=== PATIENT | female | born 1990 | race American Indian/Alaskan Native ===

== ENCOUNTER 2016-12-30 23:27 | Emergency (ER) | payer MEDICAID ==
[2016-12-30] MEDS ORDERED: Lactated Ringers 1,000 ML IV SCH (23:45)
[2016-12-30] MEDS ORDERED: Sodium Chloride 0.9% 10 ML Syringe FLUSH PRN (23:57)
--- NOTE | 2016-12-31 00:02 | EDM.PDOC ---
ED HPI GENERAL MEDICAL PROBLEM - General Chief Complaint: Gastrointestinal Problem Stated Complaint: NAUSEA Time Seen by Provider: 12/30/16 23:50 Source of Information: Reports: Patient, Family, RN Notes Reviewed History Limitations: Reports: No Limitations - History of Present Illness INITIAL COMMENTS - FREE TEXT/NARRATIVE: 26-year-old female presents emergency department today general complaint of not feeling well she states been ill for the last 24 hours feels short of breath feels nauseated no chest pain denies any fevers no problems with bowel movements or urination bottom Pain Score (Numeric/FACES): 5 - Related Data Allergies Allergy/AdvReac Type Severity Reaction Status Date / Time ibuprofen Allergy Unknown Swelling Verified 12/30/16 23:40 Home Meds: Home Meds Insulin Aspart [Novolog Flexpen] 1 unit SQ ASDIRECTED 03/13/14 [History] Insulin Detemir [Levemir] 20 unit SQ BID 03/13/14 [History] Past Medical History Gastrointestinal History: Reports: Other (See Below) Other Gastrointestinal History: 90# weight loss in past year Endocrine/Metabolic History: Reports: Diabetes, Type II Other Dermatologic History: boils on buttock and abdomin - Past Surgical History GI Surgical History: Reports: Cholecystectomy Social & Family History - Tobacco Use Smoking Status *Q: Current Every Day Smoker Years of Tobacco use: 10 Packs/Tins Daily: 1 Second Hand Smoke Exposure: No - Caffeine Use Caffeine Use: Reports: None - Alcohol Use Days Per Week of Alcohol Use: 0 - Recreational Drug Use Recreational Drug Use: Yes Drug Use in Last 12 Months: Yes Recreational Drug Type: Reports: Methamphetamine Recreational Drug Use Frequency: Daily Recreational Drug Last Use: within 1 week - Living Situation & Occupation Living situation: Reports: Single ED ROS GENERAL - Review of Systems Review Of Systems: See Below Constitutional: Denies: Fever, Chills HEENT: Reports: No Symptoms Respiratory: Reports: Shortness of Breath. Denies: Cough, Sputum Cardiovascular: Reports: No Symptoms GI/Abdominal: Reports: Nausea : Reports: No Symptoms Musculoskeletal: Reports: No Symptoms Skin: Reports: Other Neurological: Reports: No Symptoms (Boils) ED EXAM, GENERAL - Physical Exam Exam: See Below Free Text/Narrative:: General: Female, not in any distress, alert and oriented x3 HEENT: head is atraumatic normocephalic, eyes pupils equal round reactive to light, sclera clear no conjunctivitis appreciated. Ears tympanic membranes clear and nicole landmarks and light reflex are present bilaterally canals are clear. Nose no septal deviation, nares are clear, no blood present. Mouth mucosa is moist and pink no erythema or exudate noted in soft palate, tongue is midline uvula is midline, dentition is poor obese,. Neck: Supple no thyromegaly no tracheal deviation. Nodes: Cervical nodes subclavicular nodes nontender no palpable lymphadenopathy noted. Lungs: clear to auscultation bilaterally with symmetrical respirations, no adventitious noise appreciated. CV: Regular rate and rhythm S1 and S2 appreciated no murmurs rubs or gallops noted. Abdomen: Soft, nontender, no palpable masses or organomegaly appreciated, no distention no guarding bowel sounds are present, . Neuro: Cranial nerves II through XII grossly intact Skin: Multiple superficial boils appreciated on the abdomen Extremities: No lower extremity edema appreciated, Course - Vital Signs Last Recorded V/S: Last Vital Signs Temp 98.2 F 12/31/16 01:36 Pulse 57 L 12/31/16 01:36 Resp 16 12/31/16 01:36 BP 143/67 H 12/31/16 01:36 Pulse Ox 100 12/31/16 01:36 - Orders/Labs/Meds Orders: Active Orders 24 hr Category Date Time Status EKG Documentation Completion [RC] ASDIRECTED Care 12/31/16 01:45 Active Peripheral IV Care [RC] . DIRECTED Care 12/30/16 23:57 Active Chest 2V [CR] Urgent Exams 12/31/16 00:01 Taken Insulin Regular, Human [NovoLIN R] 100 unit Med 12/31/16 02:15 Active Sodium Chloride 0.9% [Normal Saline] 100 ml IV TITRATE Lactated Ringers [Ringers, Lactated] 1,000 ml Med 12/30/16 23:45 Active IV ASDIRECTED Lactated Ringers [Ringers, Lactated] 1,000 ml Med 12/31/16 01:39 Active IV BOLUS Potassium Chloride [KCL 20 MEQ in Water 100 ML] 20 meq Med 12/31/16 01:09 Active Premix Bag 1 bag IV ONETIME Sodium Chloride 0.9% [Saline Flush] Med 12/30/16 23:57 Active 10 ml FLUSH ASDIRECTED PRN Peripheral IV Insertion Adult [OM.PC] Urgent Oth 12/30/16 23:57 Ordered EKG 12 Lead [EK] Stat Ther 12/31/16 01:45 Ordered Medication Orders Lactated Ringer's (Ringers, Lactated) 1,000 mls @ 999 mls/hr IV ASDIRECTED SUSAN Last Admin: 12/31/16 00:12 Dose: 999 mls/hr Potassium Chloride 20 meq/ (Premix) 100 mls @ 50 mls/hr IV ONETIME ONE Stop: 12/31/16 03:08 Last Admin: 12/31/16 01:20 Dose: 50 mls/hr Lactated Ringer's (Ringers, Lactated) 1,000 mls @ 999 mls/hr IV BOLUS ONE Stop: 12/31/16 02:39 Last Admin: 12/31/16 01:45 Dose: 999 mls/hr Insulin Human Regular 100 unit (/ Sodium Chloride) 100 mls @ 0 mls/hr IV TITRATE SUSAN; 0.1 UNITS/KG/HR PRN Reason: Protocol Sodium Chloride (Saline Flush) 10 ml FLUSH ASDIRECTED PRN PRN Reason: Keep Vein Open Last Admin: 12/31/16 00:14 Dose: 10 ml Labs: Laboratory Tests 12/30/16 12/30/16 12/30/16 Range/Units 00:15 00:15 00:15 WBC 16.2 H (4.5-11.0) K/uL RBC 5.34 (3.30-5.50) M/uL Hgb 15.0 (12.0-15.0) g/dL Hct 45.3 (36.0-48.0) % MCV 85 (80-98) fL MCH 28 (27-31) pg MCHC 33 (32-36) % Plt Count 269 (150-400) K/uL Neut % (Auto) 83 H (36-66) % Lymph % (Auto) 8 L (24-44) % [place] % (Auto) 9 H (2-6) % Eos % (Auto) 0 L (2-4) % Baso % (Auto) 0 (0-1) % Puncture Site ABG pH (7.350-7.450) ABG pCO2 (35.0-42.0) mmHg ABG pO2 (75.0-100.0) mmHg ABG HCO3 (22.0-26.0) mmol/L ABG Total CO2 (21.0-25.0) mmol/L ABG O2 Saturation (95.0-98.0) % ABG O2 Content (15.0-23.0) %vol ABG Base Excess mm/L ABG Hemoglobin (12.0-16.0) g/dL ABG Oxyhemoglobin % ABG Carboxyhemoglobin (0.0-1.6) % ABG Methemoglobin % Kirill Test O2 Delivery Device Sodium 135 L (140-148) mmol/L Potassium 2.9 L* (3.6-5.2) mmol/L Chloride 105 (100-108) mmol/L Carbon Dioxide 8 L (21-32) mmol/L Anion Gap 24.9 H (5.0-14.0) mmol/L BUN 6 L D (7-18) mg/dL Creatinine 0.8 (0.6-1.0) mg/dL Est Cr Clr Drug Dosing 109.41 mL/min Estimated GFR (MDRD) > 60 (>60) Glucose 247 H (74-106) mg/dL Lactic Acid 1.8 (0.4-2.0) mmol/L Calcium 8.2 L (8.5-10.1) mg/dL Total Bilirubin 0.4 (0.2-1.0) mg/dL AST 8 L (15-37) U/L ALT 9 L (12-78) U/L Alkaline Phosphatase 139 H (46-116) U/L C-Reactive Protein 3.41 H (0.0-0.3) mg/dL Total Protein 7.4 (6.4-8.2) g/dL Albumin 3.0 L (3.4-5.0) g/dL Globulin 4.4 H (2.3-3.5) g/dL Albumin/Globulin Ratio 0.7 L (1.2-2.2) Lipase 70 L (73-393) U/L Urine Color Urine Appearance Urine pH (4.5-8.0) Ur Specific [place] (1.008-1.030) Urine Protein (NEGATIVE) mg/dL Urine Glucose (UA) (NEGATIVE) mg/dL Urine Ketones (NEGATIVE) mg/dL Urine Occult Blood (NEGATIVE) Urine Nitrite (NEGATIVE) Urine Bilirubin (NEGATIVE) Urine Urobilinogen (NORMAL) mg/dL Ur Leukocyte Esterase (NEGATIVE) Urine RBC (0-5) Urine WBC (0-5) Ur Epithelial Cells Amorphous Sediment Urine Bacteria Urine Mucus Urine Opiates Screen (NEGATIVE) Ur Oxycodone Screen (NEGATIVE) Urine Methadone Screen (NEGATIVE) Ur Propoxyphene Screen (NEGATIVE) Ur Barbiturates Screen (NEGATIVE) Ur Tricyclics Screen (NEGATIVE) Ur Phencyclidine Scrn (NEGATIVE) Ur Amphetamine Screen (NEGATIVE) U Methamphetamines Scrn (NEGATIVE) Urine MDMA Screen (NEGATIVE) U Benzodiazepines Scrn (NEGATIVE) U Cocaine Metab Screen (NEGATIVE) U Marijuana (THC) Screen (NEGATIVE) Ketones (NEGATIVE) 12/31/16 12/31/16 12/31/16 Range/Units 00:50 00:50 01:09 WBC (4.5-11.0) K/uL RBC (3.30-5.50) M/uL Hgb (12.0-15.0) g/dL Hct (36.0-48.0) % MCV (80-98) fL MCH (27-31) pg MCHC (32-36) % Plt Count (150-400) K/uL Neut % (Auto) (36-66) % Lymph % (Auto) (24-44) % [place] % (Auto) (2-6) % Eos % (Auto) (2-4) % Baso % (Auto) (0-1) % Puncture Site L radial ABG pH 7.233 L (7.350-7.450) ABG pCO2 12.8 L* (35.0-42.0) mmHg ABG pO2 113.0 H (75.0-100.0) mmHg ABG HCO3 5.2 L (22.0-26.0) mmol/L ABG Total CO2 4.8 L (21.0-25.0) mmol/L ABG O2 Saturation 98.2 H (95.0-98.0) % ABG O2 Content 19.0 (15.0-23.0) %vol ABG Base Excess -21.3 mm/L ABG Hemoglobin 14.0 (12.0-16.0) g/dL ABG Oxyhemoglobin 96.2 % ABG Carboxyhemoglobin 1.1 (0.0-1.6) % ABG Methemoglobin 0.9 % Kirill Test Ok O2 Delivery Device Room air Sodium (140-148) mmol/L Potassium (3.6-5.2) mmol/L Chloride (100-108) mmol/L Carbon Dioxide (21-32) mmol/L Anion Gap (5.0-14.0) mmol/L BUN (7-18) mg/dL Creatinine (0.6-1.0) mg/dL Est Cr Clr Drug Dosing mL/min Estimated GFR (MDRD) (>60) Glucose (74-106) mg/dL Lactic Acid (0.4-2.0) mmol/L Calcium (8.5-10.1) mg/dL Total Bilirubin (0.2-1.0) mg/dL AST (15-37) U/L ALT (12-78) U/L Alkaline Phosphatase (46-116) U/L C-Reactive Protein (0.0-0.3) mg/dL Total Protein (6.4-8.2) g/dL Albumin (3.4-5.0) g/dL Globulin (2.3-3.5) g/dL Albumin/Globulin Ratio (1.2-2.2) Lipase (73-393) U/L Urine Color Yellow Urine Appearance Slightly cloudy Urine pH 5.0 (4.5-8.0) Ur Specific [place] 1.020 (1.008-1.030) Urine Protein 30 H (NEGATIVE) mg/dL Urine Glucose (UA) >1000 H (NEGATIVE) mg/dL Urine Ketones 150 H (NEGATIVE) mg/dL Urine Occult Blood Negative (NEGATIVE) Urine Nitrite Negative (NEGATIVE) Urine Bilirubin Negative (NEGATIVE) Urine Urobilinogen Normal (NORMAL) mg/dL Ur Leukocyte Esterase Negative (NEGATIVE) Urine RBC 0-5 (0-5) Urine WBC 5-10 H (0-5) Ur Epithelial Cells Moderate Amorphous Sediment Not seen Urine Bacteria Few Urine Mucus Not seen Urine Opiates Screen Negative (NEGATIVE) Ur Oxycodone Screen Negative (NEGATIVE) Urine Methadone Screen Negative (NEGATIVE) Ur Propoxyphene Screen Negative (NEGATIVE) Ur Barbiturates Screen Negative (NEGATIVE) Ur Tricyclics Screen Negative (NEGATIVE) Ur Phencyclidine Scrn Negative (NEGATIVE) Ur Amphetamine Screen Negative (NEGATIVE) U Methamphetamines Scrn Negative (NEGATIVE) Urine MDMA Screen Negative (NEGATIVE) U Benzodiazepines Scrn Negative (NEGATIVE) U Cocaine Metab Screen Negative (NEGATIVE) U Marijuana (THC) Screen Positive H (NEGATIVE) Ketones (NEGATIVE) 12/31/16 Range/Units 01:11 WBC (4.5-11.0) K/uL RBC (3.30-5.50) M/uL Hgb (12.0-15.0) g/dL Hct (36.0-48.0) % MCV (80-98) fL MCH (27-31) pg MCHC (32-36) % Plt Count (150-400) K/uL Neut % (Auto) (36-66) % Lymph % (Auto) (24-44) % [place] % (Auto) (2-6) % Eos % (Auto) (2-4) % Baso % (Auto) (0-1) % Puncture Site ABG pH (7.350-7.450) ABG pCO2 (35.0-42.0) mmHg ABG pO2 (75.0-100.0) mmHg ABG HCO3 (22.0-26.0) mmol/L ABG Total CO2 (21.0-25.0) mmol/L ABG O2 Saturation (95.0-98.0) % ABG O2 Content (15.0-23.0) %vol ABG Base Excess mm/L ABG Hemoglobin (12.0-16.0) g/dL ABG Oxyhemoglobin % ABG Carboxyhemoglobin (0.0-1.6) % ABG Methemoglobin % Kirill Test O2 Delivery Device Sodium (140-148) mmol/L Potassium (3.6-5.2) mmol/L Chloride (100-108) mmol/L Carbon Dioxide (21-32) mmol/L Anion Gap (5.0-14.0) mmol/L BUN (7-18) mg/dL Creatinine (0.6-1.0) mg/dL Est Cr Clr Drug Dosing mL/min Estimated GFR (MDRD) (>60) Glucose (74-106) mg/dL Lactic Acid (0.4-2.0) mmol/L Calcium (8.5-10.1) mg/dL Total Bilirubin (0.2-1.0) mg/dL AST (15-37) U/L ALT (12-78) U/L Alkaline Phosphatase (46-116) U/L C-Reactive Protein (0.0-0.3) mg/dL Total Protein (6.4-8.2) g/dL Albumin (3.4-5.0) g/dL Globulin (2.3-3.5) g/dL Albumin/Globulin Ratio (1.2-2.2) Lipase (73-393) U/L Urine Color Urine Appearance Urine pH (4.5-8.0) Ur Specific [place] (1.008-1.030) Urine Protein (NEGATIVE) mg/dL Urine Glucose (UA) (NEGATIVE) mg/dL Urine Ketones (NEGATIVE) mg/dL Urine Occult Blood (NEGATIVE) Urine Nitrite (NEGATIVE) Urine Bilirubin (NEGATIVE) Urine Urobilinogen (NORMAL) mg/dL Ur Leukocyte Esterase (NEGATIVE) Urine RBC (0-5) Urine WBC (0-5) Ur Epithelial Cells Amorphous Sediment Urine Bacteria Urine Mucus Urine Opiates Screen (NEGATIVE) Ur Oxycodone Screen (NEGATIVE) Urine Methadone Screen (NEGATIVE) Ur Propoxyphene Screen (NEGATIVE) Ur Barbiturates Screen (NEGATIVE) Ur Tricyclics Screen (NEGATIVE) Ur Phencyclidine Scrn (NEGATIVE) Ur Amphetamine Screen (NEGATIVE) U Methamphetamines Scrn (NEGATIVE) Urine MDMA Screen (NEGATIVE) U Benzodiazepines Scrn (NEGATIVE) U Cocaine Metab Screen (NEGATIVE) U Marijuana (THC) Screen (NEGATIVE) Ketones Small H (NEGATIVE) Meds: Medications Generic Name Dose Route Start Last Admin Trade Name Freq PRN Reason Stop Dose Admin Lactated Ringer's 1,000 mls @ 999 mls/hr 12/30/16 23:45 12/31/16 00:12 Ringers, Lactated IV 999 mls/hr ASDIRECTED SUSAN Administration Potassium Chloride 20 meq/ 100 mls @ 50 mls/hr 12/31/16 01:09 12/31/16 01:20 Premix IV 12/31/16 03:08 50 mls/hr ONETIME ONE Administration Lactated Ringer's 1,000 mls @ 999 mls/hr 12/31/16 01:39 12/31/16 01:45 Ringers, Lactated IV 12/31/16 02:39 999 mls/hr BOLUS ONE Administration Insulin Human Regular 100 unit 100 mls @ 0 mls/hr 12/31/16 02:15 / Sodium Chloride IV TITRATE SUSAN Protocol 0.1 UNITS/KG/HR Sodium Chloride 10 ml 12/30/16 23:57 12/31/16 00:14 Saline Flush FLUSH 10 ml ASDIRECTED PRN Administration Keep Vein Open Discontinued Medications Generic Name Dose Route Start Last Admin Trade Name Hiro PRN Reason Stop Dose Admin Lidocaine HCl Confirm 12/31/16 01:16 12/31/16 01:20 Xylocaine-Mpf 1% Administered 12/31/16 01:17 5 ml Dose Administration 5 ml .ROUTE .STK-MED ONE Ondansetron HCl 4 mg 12/31/16 01:22 12/31/16 01:34 Zofran IVPUSH 12/31/16 01:23 4 mg ONETIME ONE Administration Departure - Departure Time of Disposition: 02:16 Disposition: DC/Tfer to Acute Hospital 02 Condition: Fair Clinical Impression: Diabetic ketoacidosis associated with type 2 diabetes mellitus Qualifiers: Diabetes mellitus complication detail: without coma Qualified Code(s): E13.10 - Other specified diabetes mellitus with ketoacidosis without coma - Discharge Information Referrals: PCP,None [Primary Care Provider] - Forms: ED Department Discharge - My Orders Last 24 Hours: My Active Orders 12/30/16 23:45 Lactated Ringers [Ringers, Lactated] 1,000 ml IV ASDIRECTED 12/30/16 23:57 Peripheral IV Care [RC] . DIRECTED Sodium Chloride 0.9% [Saline Flush] 10 ml FLUSH ASDIRECTED PRN Peripheral IV Insertion Adult [OM.PC] Urgent 12/31/16 00:01 Chest 2V [CR] Urgent 12/31/16 01:09 Potassium Chloride [KCL 20 MEQ in Water 100 ML] 20 meq Premix Bag 1 bag IV ONETIME 12/31/16 01:39 Lactated Ringers [Ringers, Lactated] 1,000 ml IV BOLUS 12/31/16 01:45 EKG Documentation Completion [RC] ASDIRECTED EKG 12 Lead [EK] Stat 12/31/16 02:15 Insulin Regular, Human [NovoLIN R] 100 unit Sodium Chloride 0.9% [Normal Saline] 100 ml IV TITRATE - Assessment/Plan Last 24 Hours: My Active Orders 12/30/16 23:45 Lactated Ringers [Ringers, Lactated] 1,000 ml IV ASDIRECTED 12/30/16 23:57 Peripheral IV Care [RC] . DIRECTED Sodium Chloride 0.9% [Saline Flush] 10 ml FLUSH ASDIRECTED PRN Peripheral IV Insertion Adult [OM.PC] Urgent 12/31/16 00:01 Chest 2V [CR] Urgent 12/31/16 01:09 Potassium Chloride [KCL 20 MEQ in Water 100 ML] 20 meq Premix Bag 1 bag IV ONETIME 12/31/16 01:39 Lactated Ringers [Ringers, Lactated] 1,000 ml IV BOLUS 12/31/16 01:45 EKG Documentation Completion [RC] ASDIRECTED EKG 12 Lead [EK] Stat 12/31/16 02:15 Insulin Regular, Human [NovoLIN R] 100 unit Sodium Chloride 0.9% [Normal Saline] 100 ml IV TITRATE Plan: Assessment Acuity = acute Site and laterality = diabetic ketoacidosis mild complicated patient with history of diabetes mellitus and a history of chronic boils Etiology = unclear etiology Manifestations = nausea vomiting Location of injury = Home Lab values = WBC elevated at 16.2 consistent leukocytosis ABG pH 7.23 PCO2 12.8 bicarbonate 5.2 consistent with anion gap metabolic acidosis sodium low at 135 consistent with hyponatremia potassium low at 2.9 consistent with hypokalemia glucose elevated 247 consistent hyperglycemia CRP elevated 3.41 albumin low at 3.0 consistent hypoalbuminemia serum positive for ketones, urinalysis positive proteins of 30 consistent proteinuria glucose greater than 1000 consistent glucose urea ketones greater than 150 consistent ketonuria WBC 5-10 consistent with pyuria and urine drug screen positive for cannabis EKG demonstrates sinus rhythm chest x-ray I did review films myself I cannot appreciate any acute process, the official read from radiology is pending Plan Called discussed case with Dr. Nash hospitalist dehydrogenation converter helper at [facility] kindly accepted the patient in transport she was started on 20 mEq of potassium recommended starting insulin drip prior to transport Patient was in agreement with the plan all questions were answered, they were instructed to return to the emergency department or call for worsening symptoms. This note was dictated using [employer] voice recognition software please call with any questions.
[2016-12-31] MEDS ORDERED: Potassium Chloride 20 MEQ in Premix Bag 1 BAG IV ONE (01:09)
[2016-12-31] MEDS ORDERED: Ondansetron 4 MG/2 ML SDV IVPUSH ONE (01:22)
[2016-12-31 01:37] VITALS: BP 143/67
[2016-12-31] MEDS ORDERED: Lactated Ringers 1,000 ML IV ONE (01:39)
--- NOTE | 2016-12-31 09:27 | CR ---
Chest 2V FINDINGS: The heart and vascular structures are normal in appearance. No infiltrates or effusions are demonstrated. The skeletal structures are unremarkable. IMPRESSION: Negative exam.
== END 2016-12-31 03:14 ==
LOC: JP.ED 23:27
DX: E11.10 Type 2 diabetes mellitus with ketoacidosis without coma (principal); Z79.4 Long term (current) use of insulin; F17.210 Nicotine dependence, cigarettes, uncomplicated
CPT/HCPCS: 36415; 36600; 71020; 80053; 80305; 81001; 82009; 82803; 83605; 83690; 85025; 86140; 93005; 96361; 96374; 99285; A9270; J2405; J3480; J7050; J7120; J7030

== ENCOUNTER 2017-04-29 20:43 | Emergency (ER) | payer MEDICAID ==
[2017-04-29] MEDS ORDERED: Sodium Chloride 0.9% 10 ML Syringe FLUSH PRN (22:33)
[2017-04-29] MEDS ORDERED: Morphine 4 MG/ML Syringe IVPUSH ONE (22:35)
[2017-04-29] MEDS ORDERED: Ondansetron 4 MG/2 ML SDV IVPUSH ONE (22:35)
[2017-04-29] MEDS ORDERED: Sodium Chloride 0.9% 1,000 ML IV SCH (22:45)
--- NOTE | 2017-04-29 22:46 | EDM.PDOC ---
ED HPI GENERAL MEDICAL PROBLEM - General Chief Complaint: Respiratory Problem Stated Complaint: SICK ALL DAY Time Seen by Provider: 04/29/17 22:24 Source of Information: Reports: Patient, Family (Mother), Old Records, RN Notes Reviewed History Limitations: Reports: Other (Severe discomfort difficult to talk) - History of Present Illness INITIAL COMMENTS - FREE TEXT/NARRATIVE: Brought in by her mother Chief complaint Difficulty breathing and chest pain History of present illness 26-year-old female started getting ill with cough and congestion 2 days ago. Despite drinking lots of fluids, she's got weaker and weaker, very short of breath, chest pain and nausea, but no vomiting until she arrived here in emergency. No fever noted at home. She's been diagnosed with type 2 diabetes but has been in ketoacidosis at least twice in December 2016 and in January 2016, both times transferred out of here to a tertiary center for treatment. At one time her pH was 7.01 She's got very weak, very difficult to walk. No fever noted at home. Reports some abdominal pain, no diarrhea Urine appears thicker and darker to her. She reports that she's had 3 L of water today She reports she's also taken her insulin She has a known history of drug abuse, including intravenous opioids and methamphetamine Does not check her blood sugars Chest Pain Score (Numeric/FACES): 8 - Related Data Allergies Allergy/AdvReac Type Severity Reaction Status Date / Time ibuprofen Allergy Unknown Swelling Verified 12/30/16 23:40 Home Meds: Home Meds Insulin Aspart [Novolog Flexpen] 10 unit SQ ASDIRECTED 03/13/14 [History] Insulin Detemir [Levemir] 20 unit SQ BID 03/13/14 [History] Past Medical History Gastrointestinal History: Reports: Cholelithiasis, Other (See Below) Other Gastrointestinal History: 90# weight loss in past year Musculoskeletal History: Reports: Other (See Below) Other Musculoskeletal History: chronic left knee pain Psychiatric History: Reports: Addiction Endocrine/Metabolic History: Reports: Diabetes, Type II, IDDM Hematologic History: Reports: Anemia Other Dermatologic History: boils on buttock and abdomin - Past Surgical History GI Surgical History: Reports: Cholecystectomy Social & Family History - Tobacco Use Smoking Status *Q: Current Every Day Smoker Years of Tobacco use: 11 Packs/Tins Daily: 1 Second Hand Smoke Exposure: No - Caffeine Use Caffeine Use: Reports: None - Alcohol Use Days Per Week of Alcohol Use: 0 - Recreational Drug Use Recreational Drug Use: Yes Drug Use in Last 12 Months: Yes Recreational Drug Type: Reports: Marijuana/Hashish Recreational Drug Use Frequency: Daily Recreational Drug Last Use: within 1 week - Living Situation & Occupation Living situation: Reports: Single ED ROS GENERAL - Review of Systems Review Of Systems: See Below Constitutional: Reports: Malaise, Weakness, Decreased Appetite, Weight Loss. Denies: Fever, Diaphoresis HEENT: Reports: Rhinitis. Denies: Throat Pain Respiratory: Reports: Shortness of Breath, Pleuritic Chest Pain, Cough Cardiovascular: Reports: Chest Pain. Denies: Edema Endocrine: Reports: Fatigue, Other (Does not check her sugars) GI/Abdominal: Reports: Abdominal Pain, Nausea, Vomiting. Denies: Diarrhea : Reports: Other (Urine darker and less frequent) Musculoskeletal: Reports: Other (Generalized weakness) Skin: Reports: No Symptoms Neurological: Reports: Trouble Speaking, Difficulty Walking Hematologic/Lymphatic: Reports: No Symptoms Immunologic: Reports: No Symptoms ED EXAM, GENERAL - Physical Exam Exam: See Below Exam Limited By: Other (She is having difficulty talking due to her discomfort and distress) General Appearance: Severe Distress (Tachypnea great 30 with heavy breathing, tachycardia, elevated pressure.), Other (Poor color, mouth is dry and speech is slurred) Eye Exam: Bilateral Eye: Normal Inspection Ears: Normal External Exam, Normal Canal, Hearing Grossly Normal, Normal TMs Nose: Other (Mild congestion). No: Nasal Drainage Throat/Mouth: Other Head: Atraumatic (Very dry in her mouth and tongue) Neck: Non-Tender. No: Lymphadenopathy (R), Lymphadenopathy (L) Respiratory/Chest: Lungs Clear, Other (Tachypnea, deep respirations, increased effort) Cardiovascular: Regular Rate, Rhythm, Tachycardia GI/Abdominal: Normal Bowel Sounds, Non-Tender, Other (Very soft skin of the abdomen decreased turgor) Extremities: Non-Tender. No: Pedal Edema Neurological: Slow to Respond, Other (Lethargic, generalized weakness, slurred speech) Psychiatric: Flat Affect Skin Exam: Warm, Dry, Other Lymphatic: No Adenopathy (Patellar) Course - Vital Signs Last Recorded V/S: Last Vital Signs Temp 36.0 C 04/29/17 21:56 Pulse 125 H 02/19/18 22:58 Resp 30 H 04/29/17 21:18 BP 150/86 H 04/29/17 22:58 Pulse Ox 91 L 04/29/17 22:58 - Orders/Labs/Meds Orders: Active Orders 24 hr Category Date Time Status POC Glucose [Blood Glucose Check, Bedside] [RC] ONETIME Care 04/29/17 22:40 Active Peripheral IV Care [RC] . DIRECTED Care 04/29/17 22:33 Active Chest 1V Frontal [CR] Stat Exams 04/29/17 22:34 Taken Sodium Chloride 0.9% [Normal Saline] 1,000 ml Med 04/29/17 22:45 Active IV ASDIRECTED Sodium Chloride 0.9% [Saline Flush] Med 04/29/17 22:33 Active 10 ml FLUSH ASDIRECTED PRN Peripheral IV Insertion Adult [OM.PC] Routine Oth 04/29/17 22:32 Ordered Medication Orders Sodium Chloride (Normal Saline) 1,000 mls @ 1,000 mls/hr IV ASDIRECTED SUSAN Last Admin: 04/29/17 23:18 Dose: 1,000 mls/hr Sodium Chloride (Saline Flush) 10 ml FLUSH ASDIRECTED PRN PRN Reason: Keep Vein Open Labs: Laboratory Tests 04/29/17 04/29/17 04/29/17 Range/Units 22:40 22:40 22:40 WBC 24.1 H (4.5-11.0) K/uL RBC 5.83 H (3.30-5.50) M/uL Hgb 16.6 H (12.0-15.0) g/dL Hct 52.4 H (36.0-48.0) % MCV 90 (80-98) fL MCH 29 (27-31) pg MCHC 32 (32-36) % Plt Count 350 (150-400) K/uL ABG Hemoglobin (12.0-16.0) g/dL ABG Oxyhemoglobin % ABG Carboxyhemoglobin (0.0-1.6) % ABG Methemoglobin % VBG pH (7.350-7.450) VBG pCO2 mm/Hg VBG pO2 mm/Hg VBG HCO3 mmol/L VBG Total CO2 mmol/L VBG O2 Saturation VBG O2 Content %vol VBG Base Excess mm/L O2 Delivery Device Sodium 131 L (140-148) mmol/L Potassium 3.9 (3.6-5.2) mmol/L Chloride 99 L (100-108) mmol/L Carbon Dioxide 4 L (21-32) mmol/L Anion Gap 31.9 H (5.0-14.0) mmol/L BUN 12 D (7-18) mg/dL Creatinine 1.0 (0.6-1.0) mg/dL Est Cr Clr Drug Dosing 90.57 mL/min Estimated GFR (MDRD) > 60 (>60) Glucose 359 H (74-106) mg/dL Lactic Acid 2.1 H (0.4-2.0) mmol/L Calcium 8.4 L (8.5-10.1) mg/dL Ketones (NEGATIVE) 04/29/17 04/29/17 Range/Units 22:40 22:40 WBC (4.5-11.0) K/uL RBC (3.30-5.50) M/uL Hgb (12.0-15.0) g/dL Hct (36.0-48.0) % MCV (80-98) fL MCH (27-31) pg MCHC (32-36) % Plt Count (150-400) K/uL ABG Hemoglobin 16.5 H (12.0-16.0) g/dL ABG Oxyhemoglobin 76.2 % ABG Carboxyhemoglobin 0.4 (0.0-1.6) % ABG Methemoglobin 1.1 % VBG pH 7.000 L (7.350-7.450) VBG pCO2 15.6 mm/Hg VBG pO2 48.1 mm/Hg VBG HCO3 3.7 mmol/L VBG Total CO2 3.6 mmol/L VBG O2 Saturation 77.4 VBG O2 Content 17.6 %vol VBG Base Excess -28.9 mm/L O2 Delivery Device Room air Sodium (140-148) mmol/L Potassium (3.6-5.2) mmol/L Chloride (100-108) mmol/L Carbon Dioxide (21-32) mmol/L Anion Gap (5.0-14.0) mmol/L BUN (7-18) mg/dL Creatinine (0.6-1.0) mg/dL Est Cr Clr Drug Dosing mL/min Estimated GFR (MDRD) (>60) Glucose (74-106) mg/dL Lactic Acid (0.4-2.0) mmol/L Calcium (8.5-10.1) mg/dL Ketones Large H (NEGATIVE) Meds: Medications Generic Name Dose Route Start Last Admin Trade Name Freq PRN Reason Stop Dose Admin Sodium Chloride 1,000 mls @ 1,000 mls/hr 04/29/17 22:45 04/29/17 23:18 Normal Saline IV 1,000 mls/hr ASDIRECTED SUSAN Administration Sodium Chloride 10 ml 04/29/17 22:33 Saline Flush FLUSH ASDIRECTED PRN Keep Vein Open Discontinued Medications Generic Name Dose Route Start Last Admin Trade Name Freq PRN Reason Stop Dose Admin Morphine Sulfate 4 mg 04/29/17 22:35 04/29/17 23:21 Morphine IVPUSH 04/29/17 22:36 4 mg ONETIME ONE Administration Ondansetron HCl 4 mg 04/29/17 22:35 04/29/17 23:19 Zofran IVPUSH 04/29/17 22:36 4 mg ONETIME ONE Administration - Re-Assessments/Exams Free Text/Narrative Re-Assessment/Exam: 04/29/17 22:47 26-year-old female with history of diabetic ketoacidosis presenting with 3 days of illness, tachypnea tachycardia dry on exam. Suspect diabetic ketoacidosis again. Gases show pH 7.0 PCO2 15.6 PO2 48.1. Free Text/Narrative Re-Assessment/Exam: 04/30/17 00:11 Venous pH 7.0, PCO2 15.6 and PO2 48.1 However saturation is normal by peripheral oximeter Serum glucose 359, CO2 3.9, sodium 131, potassium BUN/creatinine and creatinine are normal WBC is 24.1 hemoglobin 16.6 Serum ketones positive for large amount Chest x-ray negative by my interpretation This is consistent with ketoacidosis No ICU bed available here Transferred to [facility] where she has been hospitalized recently 04/30/17 00:15 Departure - Departure Time of Disposition: 00:00 Disposition: DC/Tfer to Acute Hospital 02 Condition: Critical Clinical Impression: Diabetic ketoacidosis Qualifiers: Diabetes mellitus type: type 2 Diabetes mellitus complication detail: without coma Qualified Code(s): E11.10 - Type 2 diabetes mellitus with ketoacidosis without coma - Discharge Information Referrals: PCP,None [Primary Care Provider] - - My Orders Last 24 Hours: My Active Orders 04/29/17 22:32 Peripheral IV Insertion Adult [OM.PC] Routine 04/29/17 22:33 Peripheral IV Care [RC] . DIRECTED Sodium Chloride 0.9% [Saline Flush] 10 ml FLUSH ASDIRECTED PRN 04/29/17 22:34 Chest 1V Frontal [CR] Stat 04/29/17 22:40 POC Glucose [Blood Glucose Check, Bedside] [RC] ONETIME 04/29/17 22:45 Sodium Chloride 0.9% [Normal Saline] 1,000 ml IV ASDIRECTED - Assessment/Plan Last 24 Hours: My Active Orders 04/29/17 22:32 Peripheral IV Insertion Adult [OM.PC] Routine 04/29/17 22:33 Peripheral IV Care [RC] . DIRECTED Sodium Chloride 0.9% [Saline Flush] 10 ml FLUSH ASDIRECTED PRN 04/29/17 22:34 Chest 1V Frontal [CR] Stat 04/29/17 22:40 POC Glucose [Blood Glucose Check, Bedside] [RC] ONETIME 04/29/17 22:45 Sodium Chloride 0.9% [Normal Saline] 1,000 ml IV ASDIRECTED
[2017-04-30 00:27] VITALS: BP 147/94
--- NOTE | 2017-04-30 08:57 | CR ---
Chest 1V Frontal FINDINGS: The heart and vascular structures are normal in appearance. No infiltrates or effusions are demonstrated. The skeletal structures are unremarkable. IMPRESSION: Negative exam.
== END 2017-04-30 00:40 ==
LOC: JP.ED 20:43
DX: E11.10 Type 2 diabetes mellitus with ketoacidosis without coma (principal); F17.210 Nicotine dependence, cigarettes, uncomplicated; Z88.8 Allergy status to other drugs, medicaments and biological substances; Z79.4 Long term (current) use of insulin
CPT/HCPCS: 36415; 71045; 80048; 82009; 82803; 83605; 85027; 96361; 96374; 96375; 99285; J2270; J2405; J7040

== ENCOUNTER 2018-05-26 13:09 | Inpatient (IN) | payer MEDICAID ==
[2018-05-26] MEDS ORDERED: Ondansetron 4 MG/2 ML SDV IVPUSH ONE (13:47)
[2018-05-26] MEDS ORDERED: Sodium Chloride 0.9% 1,000 ML IV ONE (13:47)
[2018-05-26] MEDS ORDERED: Sodium Chloride 0.9% 10 ML Syringe FLUSH PRN ×2 (13:47→16:22)
--- NOTE | 2018-05-26 13:59 | EDM.PDOC ---
<Doug Blaneknship - Last Filed: 05/26/18 16:07> ED HPI GENERAL MEDICAL PROBLEM - General Chief Complaint: Diabetic Complaint Stated Complaint: DIABETES Time Seen by Provider: 05/26/18 13:30 - Related Data Allergies Allergy/AdvReac Type Severity Reaction Status Date / Time ibuprofen Allergy Unknown Swelling Verified 12/30/16 23:40 Home Meds: Home Meds Insulin Aspart [Novolog Flexpen] 10 unit SQ ASDIRECTED 03/13/14 [History] Insulin Detemir [Levemir] 40 unit SQ BID 03/13/14 [History] Course - Vital Signs Last Recorded V/S: Last Vital Signs Temp 37.1 C 05/26/18 22:00 Pulse 112 H 05/27/18 00:00 Resp 16 05/27/18 00:00 BP 112/69 05/27/18 00:00 Pulse Ox 99 05/27/18 00:00 - Orders/Labs/Meds Orders: Medication Orders Acetaminophen (Tylenol) 650 mg PO Q4H PRN PRN Reason: Pain (Mild 1-3)/fever Dextrose/Water (Dextrose 50% In Water) 50 ml IVPUSH ONETIME PRN PRN Reason: Blood Glucose Dextrose/Sodium Chloride (Dextrose 5%-1/2 Ns) 1,000 mls @ 150 mls/hr IV .CONTINUOUS PRN PRN Reason: Blood Glucose Last Admin: 05/27/18 00:29 Dose: 150 mls/hr Infusion: 05/27/18 00:29 Dose: 150 mls/hr Admin: 05/26/18 18:09 Dose: 150 mls/hr Insulin Human Regular 100 unit (/ Sodium Chloride) 100 mls @ 7.89 mls/hr IV TITRATE SUSAN; Protocol Last Titration: 05/26/18 23:15 Dose: 0.07 units/kg/hr, 6 mls/hr Titration: 05/26/18 21:14 Dose: 0.1 units/kg/hr, 8 mls/hr Titration: 05/26/18 18:05 Dose: 0.08 units/kg/hr, 7 mls/hr Titration: 05/26/18 17:24 Dose: 0.14 units/kg/hr, 11.7 mls/hr Admin: 05/26/18 16:00 Dose: 0.1 units/kg/hr, 7.89 mls/hr Magnesium Sulfate (Magnesium Sulfate 2 Gm In Water 50 Ml) 50 mls @ 25 mls/hr IV ONETIME PRN PRN Reason: low magnesium Last Admin: 05/26/18 17:32 Dose: 25 mls/hr Sodium Chloride (Normal Saline) 2,000 mls @ 500 mls/hr IV .CONTINUOUS PRN PRN Reason: Blood Glucose Last Admin: 05/26/18 17:24 Dose: 500 mls/hr Lorazepam (Ativan) 0.5 mg IVPUSH Q2H PRN PRN Reason: Anxiety Ondansetron HCl (Zofran) 4 mg IV Q4H PRN PRN Reason: Nausea/Vomiting Pantoprazole Sodium (Protonix) 40 mg PO ACBREAKFAST SUSAN Last Admin: 05/26/18 17:37 Dose: 40 mg Potassium Chloride (Potassium Chloride Solution) 20 meq PO NOW PRN PRN Reason: Hypokalemia Potassium Chloride (Potassium Chloride Solution) 40 meq PO NOW PRN PRN Reason: Hypokalemia Potassium Chloride (Potassium Chloride Solution) 40 meq PO Q2H PRN PRN Reason: Hypokalemia Senna/Docusate Sodium (Senna Plus) 1 tab PO BID PRN PRN Reason: Constipation Sodium Chloride (Saline Flush) 10 ml FLUSH ASDIRECTED PRN PRN Reason: Keep Vein Open Labs: Laboratory Tests 05/26/18 05/26/18 05/26/18 Range/Units 13:47 13:47 13:47 WBC 10.1 (4.5-11.0) K/uL RBC 6.16 H (3.30-5.50) M/uL Hgb 16.3 H (12.0-15.0) g/dL Hct 51.3 H (36.0-48.0) % MCV 83 (80-98) fL MCH 27 (27-31) pg MCHC 32 (32-36) % Plt Count 278 (150-400) K/uL Neut % (Auto) 78 H (36-66) % Lymph % (Auto) 17 L (24-44) % Madison % (Auto) 6 (2-6) % Eos % (Auto) 0 L (2-4) % Baso % (Auto) 0 (0-1) % Puncture Site ABG pH (7.350-7.450) ABG pCO2 (35.0-42.0) mmHg ABG pO2 (75.0-100.0) mmHg ABG HCO3 (22.0-26.0) mmol/L ABG Total CO2 (21.0-25.0) mmol/L ABG O2 Saturation (95.0-98.0) % ABG O2 Content (15.0-23.0) %vol ABG Base Excess mm/L ABG Hemoglobin (12.0-16.0) g/dL ABG Oxyhemoglobin % ABG Carboxyhemoglobin (0.0-1.6) % ABG Methemoglobin % Kirill Test O2 Delivery Device Sodium 136 L (140-148) mmol/L Potassium 4.6 (3.6-5.2) mmol/L Chloride 101 (100-108) mmol/L Carbon Dioxide 8 L (21-32) mmol/L Anion Gap 31.6 H (5.0-14.0) mmol/L BUN 17 (7-18) mg/dL Creatinine 1.0 (0.6-1.0) mg/dL Est Cr Clr Drug Dosing 86.75 mL/min Estimated GFR (MDRD) > 60 (>60) Glucose 326 H (74-106) mg/dL Calcium 9.4 (8.5-10.1) mg/dL Total Bilirubin 0.5 (0.2-1.0) mg/dL AST 16 D (15-37) U/L ALT 12 (12-78) U/L Alkaline Phosphatase 128 H (46-116) U/L Total Protein 9.1 H (6.4-8.2) g/dL Albumin 4.2 (3.4-5.0) g/dL Globulin 4.9 H (2.3-3.5) g/dL Albumin/Globulin Ratio 0.9 L (1.2-2.2) Ketones Large H (NEGATIVE) 05/26/18 Range/Units 14:29 WBC (4.5-11.0) K/uL RBC (3.30-5.50) M/uL Hgb (12.0-15.0) g/dL Hct (36.0-48.0) % MCV (80-98) fL MCH (27-31) pg MCHC (32-36) % Plt Count (150-400) K/uL Neut % (Auto) (36-66) % Lymph % (Auto) (24-44) % Madison % (Auto) (2-6) % Eos % (Auto) (2-4) % Baso % (Auto) (0-1) % Puncture Site Rt brachial ABG pH 7.156 L* (7.350-7.450) ABG pCO2 10.0 L* (35.0-42.0) mmHg ABG pO2 123.0 H (75.0-100.0) mmHg ABG HCO3 3.4 L (22.0-26.0) mmol/L ABG Total CO2 3.1 L (21.0-25.0) mmol/L ABG O2 Saturation 95.5 (95.0-98.0) % ABG O2 Content 21.3 (15.0-23.0) %vol ABG Base Excess -25.5 mm/L ABG Hemoglobin 15.9 (12.0-16.0) g/dL ABG Oxyhemoglobin 94.6 % ABG Carboxyhemoglobin -0.1 L (0.0-1.6) % ABG Methemoglobin 1.0 % Kirill Test Passed O2 Delivery Device Room air Sodium (140-148) mmol/L Potassium (3.6-5.2) mmol/L Chloride (100-108) mmol/L Carbon Dioxide (21-32) mmol/L Anion Gap (5.0-14.0) mmol/L BUN (7-18) mg/dL Creatinine (0.6-1.0) mg/dL Est Cr Clr Drug Dosing mL/min Estimated GFR (MDRD) (>60) Glucose (74-106) mg/dL Calcium (8.5-10.1) mg/dL Total Bilirubin (0.2-1.0) mg/dL AST (15-37) U/L ALT (12-78) U/L Alkaline Phosphatase (46-116) U/L Total Protein (6.4-8.2) g/dL Albumin (3.4-5.0) g/dL Globulin (2.3-3.5) g/dL Albumin/Globulin Ratio (1.2-2.2) Ketones (NEGATIVE) Meds: Medications Generic Name Dose Route Start Last Admin Trade Name Freq PRN Reason Stop Dose Admin Acetaminophen 650 mg 05/26/18 16:22 Tylenol PO Q4H PRN Pain (Mild 1-3)/fever Dextrose/Water 50 ml 05/26/18 16:22 Dextrose 50% In Water IVPUSH ONETIME PRN Blood Glucose Dextrose/Sodium Chloride 1,000 mls @ 150 mls/hr 05/26/18 16:22 05/27/18 00:29 Dextrose 5%-1/2 Ns IV 150 mls/hr .CONTINUOUS PRN Administration Blood Glucose Insulin Human Regular 100 unit 100 mls @ 7.89 mls/hr 05/26/18 16:50 05/26/18 23:15 / Sodium Chloride IV 0.07 units/kg/hr TITRATE SUSAN 6 mls/hr Titration Protocol 0.1 UNITS/KG/HR Magnesium Sulfate 50 mls @ 25 mls/hr 05/26/18 16:22 05/26/18 17:32 Magnesium Sulfate 2 Gm In Water 50 Ml IV 25 mls/hr ONETIME PRN Administration low magnesium Sodium Chloride 2,000 mls @ 500 mls/hr 05/26/18 16:22 05/26/18 17:24 Normal Saline IV 500 mls/hr .CONTINUOUS PRN Administration Blood Glucose Lorazepam 0.5 mg 05/26/18 16:22 Ativan IVPUSH Q2H PRN Anxiety Ondansetron HCl 4 mg 05/26/18 16:22 Zofran IV Q4H PRN Nausea/Vomiting Pantoprazole Sodium 40 mg 05/26/18 18:00 05/26/18 17:37 Protonix PO 40 mg ACBREAKFAST SUSAN Administration Potassium Chloride 20 meq 05/26/18 16:22 Potassium Chloride Solution PO NOW PRN Hypokalemia Potassium Chloride 40 meq 05/26/18 16:22 Potassium Chloride Solution PO NOW PRN Hypokalemia Potassium Chloride 40 meq 05/26/18 16:22 Potassium Chloride Solution PO Q2H PRN Hypokalemia Senna/Docusate Sodium 1 tab 05/26/18 16:22 Senna Plus PO BID PRN Constipation Sodium Chloride 10 ml 05/26/18 16:22 Saline Flush FLUSH ASDIRECTED PRN Keep Vein Open Discontinued Medications Generic Name Dose Route Start Last Admin Trade Name Hiro PRN Reason Stop Dose Admin Acetaminophen 650 mg 05/26/18 14:34 05/26/18 14:41 Tylenol PO 05/26/18 14:35 650 mg NOW ONE Administration Sodium Chloride 1,000 mls @ 999 mls/hr 05/26/18 13:47 05/26/18 13:58 Normal Saline IV 05/26/18 14:47 999 mls/hr .BOLUS ONE Administration Sodium Chloride 1,000 mls @ 500 mls/hr 05/26/18 15:15 Normal Saline IV ASDIRECTED SUSAN Insulin Human Regular 100 unit 100 mls @ 7.89 mls/hr 05/26/18 15:30 / Sodium Chloride IV TITRATE SUSAN Protocol 0.1 UNITS/KG/HR Insulin Human Regular 100 unit 100 mls @ 7.89 mls/hr 05/26/18 15:45 05/26/18 16:00 / Sodium Chloride IV 0.1 units/kg/hr TITRATE SUSAN 7.89 mls/hr Administration Protocol 0.1 UNITS/KG/HR Insulin Human Regular 8 unit 05/26/18 14:30 05/26/18 14:38 Humulin R IVPUSH 05/26/18 14:31 8 unit ONETIME ONE Administration Metoclopramide HCl 10 mg 05/26/18 14:25 05/26/18 14:29 Reglan IVPUSH 05/26/18 14:26 10 mg ONETIME ONE Administration Ondansetron HCl 4 mg 05/26/18 13:47 05/26/18 13:59 Zofran IVPUSH 05/26/18 13:48 4 mg ONETIME ONE Administration Sodium Chloride 10 ml 05/26/18 13:47 05/26/18 14:07 Saline Flush FLUSH 10 ml ASDIRECTED PRN Administration Keep Vein Open Departure - Departure Disposition: Admitted As Inpatient 64 Clinical Impression: Diabetic ketoacidosis Qualifiers: Diabetes mellitus type: other specified (including JOVANY) Diabetes mellitus complication detail: without coma Qualified Code(s): E13.10 - Other specified diabetes mellitus with ketoacidosis without coma - Discharge Information Attestation - Student - Attestation Statement Attestation Statement: I personally performed or re-performed the physical examination and medical decision making. I have verified all student documentation or findings, including history, physical exam and/or medical decision making. <Kizzy Hirsch - Last Filed: 05/27/18 00:43> ED HPI GENERAL MEDICAL PROBLEM - General Source of Information: Reports: Patient History Limitations: Reports: No Limitations - History of Present Illness INITIAL COMMENTS - FREE TEXT/NARRATIVE: Pt comes in with nausea and vomiting. She states she is out of her long acting insulin and has been using her short acting insulin. She denies checking her blood sugars because she does not have any strips for her machine. Pt states she has a slight head ache, has been vomiting for the last 2 days and her nausea is intolerable. Patient states she was hospitalized recently for her diabetes and not taking her insulin. Patient has given permission to access her previous records. Onset: Sudden Onset Date: 05/24/18 Onset Time: 08:00 Duration: Day(s): Location: Reports: Abdomen Quality: Reports: Other (nausea) Severity: Moderate Improves with: Reports: None Worsens with: Reports: None Context: Reports: Other (medication non-compliance) Associated Symptoms: Reports: Headaches, Loss of Appetite, Nausea/Vomiting Past Medical History Gastrointestinal History: Reports: Cholelithiasis, Other (See Below) Other Gastrointestinal History: 90# weight loss in past year Musculoskeletal History: Reports: Other (See Below) Other Musculoskeletal History: chronic left knee pain Psychiatric History: Reports: Addiction Endocrine/Metabolic History: Reports: Diabetes, Type I, IDDM Hematologic History: Reports: Anemia Other Dermatologic History: boils on buttock and abdomin - Past Surgical History GI Surgical History: Reports: Cholecystectomy Social & Family History - Tobacco Use Smoking Status *Q: Current Every Day Smoker Years of Tobacco use: 10 Packs/Tins Daily: 0.2 - Caffeine Use Caffeine Use: Reports: Coffee - Recreational Drug Use Recreational Drug Use: Yes Recreational Drug Type: Reports: Marijuana/Hashish, Methamphetamine Recreational Drug Use Frequency: Weekly - Living Situation & Occupation Living situation: Reports: Single ED ROS GENERAL - Review of Systems Review Of Systems: See Below Constitutional: Reports: Decreased Appetite HEENT: Reports: Rhinitis Respiratory: Reports: Cough Cardiovascular: Reports: No Symptoms Endocrine: Reports: High Glucose GI/Abdominal: Reports: Abdominal Pain, Decreased Appetite, Nausea : Reports: No Symptoms Musculoskeletal: Reports: No Symptoms Skin: Reports: No Symptoms Neurological: Reports: Headache Psychiatric: Reports: No Symptoms Hematologic/Lymphatic: Reports: No Symptoms Immunologic: Reports: No Symptoms ED EXAM GENERAL NO PERIP PULSE - Physical Exam Exam: See Below Text/Narrative:: 27 y/o female appears stated age in moderate distress Exam Limited By: No Limitations General Appearance: Alert, Moderate Distress Respiratory/Chest: No Respiratory Distress, Lungs Clear, Normal Breath Sounds, No Accessory Muscle Use Cardiovascular: Normal Peripheral Pulses, Regular Rate, Rhythm, No Edema, No Gallop, No Murmur, No Rub, Tachycardia GI/Abdominal: Normal Bowel Sounds, Soft, No Organomegaly, No Distention, No Abnormal Bruit, No Mass Extremities: Normal Inspection, Normal Range of Motion, Non-Tender, No Pedal Edema, Normal Capillary Refill Neurological: Alert, Oriented, CN II-XII Intact, Normal Cognition, Normal Gait, Normal Reflexes, No Motor/Sensory Deficits Psychiatric: Normal Affect, Normal Mood Skin Exam: Warm, Dry, Intact, Normal Color, No Rash, Tattoo(s) Lymphatic: No Adenopathy Course - Orders/Labs/Meds Labs: Laboratory Tests 05/26/18 05/26/18 05/26/18 Range/Units 13:47 13:47 13:47 WBC 10.1 (4.5-11.0) K/uL RBC 6.16 H (3.30-5.50) M/uL Hgb 16.3 H (12.0-15.0) g/dL Hct 51.3 H (36.0-48.0) % MCV 83 (80-98) fL MCH 27 (27-31) pg MCHC 32 (32-36) % Plt Count 278 (150-400) K/uL Neut % (Auto) 78 H (36-66) % Lymph % (Auto) 17 L (24-44) % Madison % (Auto) 6 (2-6) % Eos % (Auto) 0 L (2-4) % Baso % (Auto) 0 (0-1) % Puncture Site ABG pH (7.350-7.450) ABG pCO2 (35.0-42.0) mmHg ABG pO2 (75.0-100.0) mmHg ABG HCO3 (22.0-26.0) mmol/L ABG Total CO2 (21.0-25.0) mmol/L ABG O2 Saturation (95.0-98.0) % ABG O2 Content (15.0-23.0) %vol ABG Base Excess mm/L ABG Hemoglobin (12.0-16.0) g/dL ABG Oxyhemoglobin % ABG Carboxyhemoglobin (0.0-1.6) % ABG Methemoglobin % Kirill Test O2 Delivery Device Sodium 136 L (140-148) mmol/L Potassium 4.6 (3.6-5.2) mmol/L Chloride 101 (100-108) mmol/L Carbon Dioxide 8 L (21-32) mmol/L Anion Gap 31.6 H (5.0-14.0) mmol/L BUN 17 (7-18) mg/dL Creatinine 1.0 (0.6-1.0) mg/dL Est Cr Clr Drug Dosing 86.75 mL/min Estimated GFR (MDRD) > 60 (>60) Glucose 326 H (74-106) mg/dL Calcium 9.4 (8.5-10.1) mg/dL Total Bilirubin 0.5 (0.2-1.0) mg/dL AST 16 D (15-37) U/L ALT 12 (12-78) U/L Alkaline Phosphatase 128 H (46-116) U/L Total Protein 9.1 H (6.4-8.2) g/dL Albumin 4.2 (3.4-5.0) g/dL Globulin 4.9 H (2.3-3.5) g/dL Albumin/Globulin Ratio 0.9 L (1.2-2.2) Ketones Large H (NEGATIVE) 05/26/18 Range/Units 14:29 WBC (4.5-11.0) K/uL RBC (3.30-5.50) M/uL Hgb (12.0-15.0) g/dL Hct (36.0-48.0) % MCV (80-98) fL MCH (27-31) pg MCHC (32-36) % Plt Count (150-400) K/uL Neut % (Auto) (36-66) % Lymph % (Auto) (24-44) % Madison % (Auto) (2-6) % Eos % (Auto) (2-4) % Baso % (Auto) (0-1) % Puncture Site Rt brachial ABG pH 7.156 L* (7.350-7.450) ABG pCO2 10.0 L* (35.0-42.0) mmHg ABG pO2 123.0 H (75.0-100.0) mmHg ABG HCO3 3.4 L (22.0-26.0) mmol/L ABG Total CO2 3.1 L (21.0-25.0) mmol/L ABG O2 Saturation 95.5 (95.0-98.0) % ABG O2 Content 21.3 (15.0-23.0) %vol ABG Base Excess -25.5 mm/L ABG Hemoglobin 15.9 (12.0-16.0) g/dL ABG Oxyhemoglobin 94.6 % ABG Carboxyhemoglobin -0.1 L (0.0-1.6) % ABG Methemoglobin 1.0 % Kirill Test Passed O2 Delivery Device Room air Sodium (140-148) mmol/L Potassium (3.6-5.2) mmol/L Chloride (100-108) mmol/L Carbon Dioxide (21-32) mmol/L Anion Gap (5.0-14.0) mmol/L BUN (7-18) mg/dL Creatinine (0.6-1.0) mg/dL Est Cr Clr Drug Dosing mL/min Estimated GFR (MDRD) (>60) Glucose (74-106) mg/dL Calcium (8.5-10.1) mg/dL Total Bilirubin (0.2-1.0) mg/dL AST (15-37) U/L ALT (12-78) U/L Alkaline Phosphatase (46-116) U/L Total Protein (6.4-8.2) g/dL Albumin (3.4-5.0) g/dL Globulin (2.3-3.5) g/dL Albumin/Globulin Ratio (1.2-2.2) Ketones (NEGATIVE) - Re-Assessments/Exams Free Text/Narrative Re-Assessment/Exam: 05/26/18 15:34 Additional lab collected critical PH at 7.156 and pCO2 at 10. Insulin drip to be initiated. Call to Hospitalist for inpt admission. Discussed with patient and she is agreeable to this plan Departure - Departure Time of Disposition: 16:07 Condition: Serious - Discharge Information *PRESCRIPTION DRUG MONITORING PROGRAM REVIEWED*: Not Applicable *COPY OF PRESCRIPTION DRUG MONITORING REPORT IN PATIENT SRI: Not Applicable
[2018-05-26] MEDS ORDERED: Metoclopramide 10 MG/2 ML SDV IVPUSH ONE (14:25)
[2018-05-26] MEDS ORDERED: Insulin Regular, Human 100 Units/ML 3 ML Vial IVPUSH ONE (14:30)
[2018-05-26] MEDS ORDERED: Acetaminophen 325 MG Tab PO ONE (14:34)
[2018-05-26] MEDS ORDERED: Sodium Chloride 0.9% 1,000 ML IV SCH (15:15)
--- NOTE | 2018-05-26 15:44 | PCM.HP ---
H&P History of Present Illness - General Date of Service: 05/26/18 Admit Problem/Dx: Admission Diagnosis/Problem Admission Diagnosis/Problem Ketoacidosis Source of Information: Patient, Old Records, Provider, RN Notes Reviewed History Limitations: Reports: No Limitations - History of Present Illness Initial Comments - Free Text/Narative: Ms. Gómez is a 27-year-old woman who is admitted through the emergency department with weakness, nausea, and vomiting secondary to diabetic ketoacidosis. She has a known and long-standing history of type 1 diabetes mellitus, with ongoing poor control. She has had recurrent admissions for ketoacidosis, because she runs out of the insulin. She also has a known history of drug abuse and admits to recently taking methamphetamine and marijuana on a daily basis. She ran out of all of her insulins approximately 3 days ago and has become progressively more weak since then. On evaluation in the emergency department glucose level is elevated at 360 and she has obvious evidence of ketoacidosis with a pH of 7.15, carbon dioxide level of 8 and an anion gap of 31. - Related Data Allergies/Adverse Reactions: Allergies Allergy/AdvReac Type Severity Reaction Status Date / Time ibuprofen Allergy Unknown Swelling Verified 12/30/16 23:40 Home Medications: Home Meds Insulin Aspart [Novolog Flexpen] 10 unit SQ ASDIRECTED 03/13/14 [History] Insulin Detemir [Levemir] 40 unit SQ BID 03/13/14 [History] Past Medical History Gastrointestinal History: Reports: Cholelithiasis, Other (See Below) Other Gastrointestinal History: 90# weight loss in past year Musculoskeletal History: Reports: Other (See Below) Other Musculoskeletal History: chronic left knee pain Psychiatric History: Reports: Addiction Endocrine/Metabolic History: Reports: Diabetes, Type I, IDDM Hematologic History: Reports: Anemia Other Dermatologic History: boils on buttock and abdomin - Past Surgical History GI Surgical History: Reports: Cholecystectomy Social & Family History - Tobacco Use Smoking Status *Q: Current Every Day Smoker Years of Tobacco use: 10 Packs/Tins Daily: 0.2 - Caffeine Use Caffeine Use: Reports: Coffee - Recreational Drug Use Recreational Drug Use: Yes Recreational Drug Type: Reports: Marijuana/Hashish, Methamphetamine Recreational Drug Use Frequency: Weekly - Living Situation & Occupation Living situation: Reports: Single H&P Review of Systems - Review of Systems: Review Of Systems: See Below General: Reports: Weakness. Denies: Fever, Chills HEENT: Reports: No Symptoms Pulmonary: Reports: No Symptoms Cardiovascular: Reports: No Symptoms Gastrointestinal: Reports: Nausea, Vomiting. Denies: Abdominal Pain, Constipation, Diarrhea, Hematemesis, Hematochezia, Melena Genitourinary: Reports: No Symptoms Musculoskeletal: Reports: No Symptoms Skin: Reports: No Symptoms Psychiatric: Reports: No Symptoms Neurological: Reports: No Symptoms Hematologic/Lymphatic: Reports: No Symptoms Immunologic: Reports: No Symptoms Exam - Exam Exam: See Below - Vital Signs Vital Signs: Last Vital Signs Temp 97.8 F 05/26/18 13:23 Pulse 121 H 05/26/18 13:23 Resp 18 05/26/18 13:23 BP 133/85 05/26/18 13:23 Pulse Ox 100 05/26/18 13:23 Weight: 174 lb - Exam General: Alert, Oriented, Cooperative, Moderate Distress HEENT: Conjunctiva Clear, Hearing Intact, Normal Nasal Septum, Posterior Pharynx Clear, Pupils Equal. No: Mucosa Moist & [place] Neck: Supple, Trachea Midline, +2 Carotid Pulse wo Bruit Lungs: Clear to Auscultation, Normal Respiratory Effort Cardiovascular: Regular Rate, Regular Rhythm, Normal S1, Normal S2. No: Systolic Murmur, Diastolic Murmur GI/Abdominal Exam: Soft, Non-Tender, No Organomegaly, No Distention Back Exam: Normal Inspection, Full Range of Motion Extremities: Non-Tender, No Pedal Edema Skin: Warm, Dry, Intact Neurological: Cranial Nerves Intact, Strength Equal Bilateral, Normal Speech, Normal Tone, Sensation Intact. No: Focal Deficit Neuro Extensive - Mental Status: Alert, Oriented x3, Normal Mood/Affect, Normal Cognition, Memory Intact - Patient Data Lab Results Last 24 hrs: Laboratory Results - last 24 hr 05/26/18 05/26/18 05/26/18 Range/Units 13:47 13:47 13:47 WBC 10.1 (4.5-11.0) K/uL RBC 6.16 H (3.30-5.50) M/uL Hgb 16.3 H (12.0-15.0) g/dL Hct 51.3 H (36.0-48.0) % MCV 83 (80-98) fL MCH 27 (27-31) pg MCHC 32 (32-36) % Plt Count 278 (150-400) K/uL Neut % (Auto) 78 H (36-66) % Lymph % (Auto) 17 L (24-44) % [place] % (Auto) 6 (2-6) % Eos % (Auto) 0 L (2-4) % Baso % (Auto) 0 (0-1) % Puncture Site ABG pH (7.350-7.450) ABG pCO2 (35.0-42.0) mmHg ABG pO2 (75.0-100.0) mmHg ABG HCO3 (22.0-26.0) mmol/L ABG Total CO2 (21.0-25.0) mmol/L ABG O2 Saturation (95.0-98.0) % ABG O2 Content (15.0-23.0) %vol ABG Base Excess mm/L ABG Hemoglobin (12.0-16.0) g/dL ABG Oxyhemoglobin % ABG Carboxyhemoglobin (0.0-1.6) % ABG Methemoglobin % Kirill Test O2 Delivery Device Sodium 136 L (140-148) mmol/L Potassium 4.6 (3.6-5.2) mmol/L Chloride 101 (100-108) mmol/L Carbon Dioxide 8 L (21-32) mmol/L Anion Gap 31.6 H (5.0-14.0) mmol/L BUN 17 (7-18) mg/dL Creatinine 1.0 (0.6-1.0) mg/dL Est Cr Clr Drug Dosing 86.75 mL/min Estimated GFR (MDRD) > 60 (>60) Glucose 326 H (74-106) mg/dL Calcium 9.4 (8.5-10.1) mg/dL Total Bilirubin 0.5 (0.2-1.0) mg/dL AST 16 D (15-37) U/L ALT 12 (12-78) U/L Alkaline Phosphatase 128 H (46-116) U/L Total Protein 9.1 H (6.4-8.2) g/dL Albumin 4.2 (3.4-5.0) g/dL Globulin 4.9 H (2.3-3.5) g/dL Albumin/Globulin Ratio 0.9 L (1.2-2.2) Ketones Large H (NEGATIVE) 05/26/18 Range/Units 14:29 WBC (4.5-11.0) K/uL RBC (3.30-5.50) M/uL Hgb (12.0-15.0) g/dL Hct (36.0-48.0) % MCV (80-98) fL MCH (27-31) pg MCHC (32-36) % Plt Count (150-400) K/uL Neut % (Auto) (36-66) % Lymph % (Auto) (24-44) % [place] % (Auto) (2-6) % Eos % (Auto) (2-4) % Baso % (Auto) (0-1) % Puncture Site Rt brachial ABG pH 7.156 L* (7.350-7.450) ABG pCO2 10.0 L* (35.0-42.0) mmHg ABG pO2 123.0 H (75.0-100.0) mmHg ABG HCO3 3.4 L (22.0-26.0) mmol/L ABG Total CO2 3.1 L (21.0-25.0) mmol/L ABG O2 Saturation 95.5 (95.0-98.0) % ABG O2 Content 21.3 (15.0-23.0) %vol ABG Base Excess -25.5 mm/L ABG Hemoglobin 15.9 (12.0-16.0) g/dL ABG Oxyhemoglobin 94.6 % ABG Carboxyhemoglobin -0.1 L (0.0-1.6) % ABG Methemoglobin 1.0 % Kirill Test Passed O2 Delivery Device Room air Sodium (140-148) mmol/L Potassium (3.6-5.2) mmol/L Chloride (100-108) mmol/L Carbon Dioxide (21-32) mmol/L Anion Gap (5.0-14.0) mmol/L BUN (7-18) mg/dL Creatinine (0.6-1.0) mg/dL Est Cr Clr Drug Dosing mL/min Estimated GFR (MDRD) (>60) Glucose (74-106) mg/dL Calcium (8.5-10.1) mg/dL Total Bilirubin (0.2-1.0) mg/dL AST (15-37) U/L ALT (12-78) U/L Alkaline Phosphatase (46-116) U/L Total Protein (6.4-8.2) g/dL Albumin (3.4-5.0) g/dL Globulin (2.3-3.5) g/dL Albumin/Globulin Ratio (1.2-2.2) Ketones (NEGATIVE) Result Diagrams: 05/26/18 13:47 05/26/18 13:47 *Q Meaningful Use (ADM) - VTE Risk Assess *Q Each Risk Factor Represents 1 Point: None Total Score 1 Point Risk Factors: 0 Each Risk Factor Represents 2 Points: None Total Score 2 Point Risk Factors: 0 Each Risk Factor Represents 3 Points: None Total Score 3 Point Risk Factors: 0 Each Risk Factor Represents 5 Points: None Total Score 5 Point Risk Factors: 0 Venous Thromboembolism Risk Factor Score *Q: 0 Problem List Initiated/Reviewed/Updated: Yes Orders Last 24hrs: Active Orders 24 hr Category Date Time Status Patient Status Manage Transfer [TRANSFER] Routine ADT 05/26/18 15:36 Ordered Blood Glucose Check, Bedside [RC] ONETIME Care 05/26/18 15:42 Active Peripheral IV Care [RC] . DIRECTED Care 05/26/18 13:48 Active Insulin Regular, Human [HumuLIN R] 100 unit Med 05/26/18 15:45 Active Sodium Chloride 0.9% [Normal Saline] 99 ml IV TITRATE Sodium Chloride 0.9% [Normal Saline] 1,000 ml Med 05/26/18 15:15 Active IV ASDIRECTED Sodium Chloride 0.9% [Saline Flush] Med 05/26/18 13:47 Active 10 ml FLUSH ASDIRECTED PRN Peripheral IV Insertion Adult [OM.PC] Routine Oth 05/26/18 13:47 Ordered Resuscitation Status Routine Resus Stat 05/26/18 15:37 Ordered Medication Orders Sodium Chloride (Normal Saline) 1,000 mls @ 500 mls/hr IV ASDIRECTED SUSAN Insulin Human Regular 100 unit (/ Sodium Chloride) 100 mls @ 7.89 mls/hr IV TITRATE SUSAN; Protocol Sodium Chloride (Saline Flush) 10 ml FLUSH ASDIRECTED PRN PRN Reason: Keep Vein Open Last Admin: 05/26/18 14:07 Dose: 10 ml Assessment/Plan Comment:: ASSESSMENT AND PLAN DIABETIC KETOACIDOSIS-no evidence of underlying infection, she has been out of all of her insulin for 3 days. -Vigorous IV fluid replacement per protocol -IV insulins per protocol -Frequent monitoring of electrolytes and replacement per protocol -At the time of discharge arrange for primary care and frequent monitoring of diabetes DRUG ABUSE-on admission she expresses interest in treatment of her drug addiction with methamphetamine and marijuana MAINTENANCE ISSUES -DVT prophylaxis; SCUDs -GI prophylaxis; Protonix 40 mg by mouth daily -Frausto catheter; not indicated -Nutrition; consistent carb diet -Nicotine dependence; not required CODE STATUS-FULL CODE ADMISSION STATUS-patient will be admitted to inpatient status, expect at least a 2 night hospital stay for evaluation and management of problems as outlined above. At the time of this admission I do not reasonably expected evaluation and management of this problem will require more than a 96 hour hospital stay. DISPOSITION-anticipate discharge to home after the hospital stay. PRIMARY CARE PROVIDER-she does not currently have a primary care provider
[2018-05-26] MEDS ORDERED: Potassium Chloride 10% 20 MEQ/15 ML Soln 15 ML UD Cup PO PRN ×2 (16:22)
[2018-05-26] MEDS ORDERED: LORazepam 2 MG/ML SDV IVPUSH PRN (16:22)
[2018-05-26] MEDS ORDERED: Acetaminophen 325 MG Tab PO PRN (16:22)
[2018-05-26] MEDS ORDERED: Sodium Chloride 0.9% 2,000 ML IV PRN (16:22)
[2018-05-26] MEDS ORDERED: Ondansetron 4 MG/2 ML SDV IV PRN (16:22)
[2018-05-26] MEDS ORDERED: 50% Dextrose in Water 50 ML Syringe IVPUSH PRN (16:22)
[2018-05-26] MEDS: Magnesium Sulfate/Water 50 ML IV PRN (17:32)
[2018-05-26] MEDS: Pantoprazole 40 MG Tab.CR PO SCH (17:37)
[2018-05-26] MEDS: Dextrose 5%-0.45% NaCl 1,000 ML IV PRN (18:09)
[2018-05-27] MEDS: Dextrose 5%-0.45% NaCl 1,000 ML IV PRN ×3 (00:29→14:11)
[2018-05-27] MEDS: Potassium Chloride 10% 20 MEQ/15 ML Soln 15 ML UD Cup PO PRN ×5 (05:13→13:25)
[2018-05-27] MEDS: Pantoprazole 40 MG Tab.CR PO SCH (08:05)
[2018-05-27] MEDS ORDERED: Magnesium Sulfate/Water 50 ML IV PRN (09:04)
[2018-05-27] MEDS: Magnesium Sulfate/Water 50 ML IV PRN (09:09)
[2018-05-27] MEDS: Insulin Glargine,Human Rec. Analog 100 Units/ML 3 ML Pen SUBCUT SCH ×2 (10:15→20:26)
--- NOTE | 2018-05-27 10:25 | PCM.PN ---
- General Info Date of Service: 05/27/18 Subjective Update: Ms. Gómez has improved since admission, glucose levels over the past several hours have been between 101-150. Continues to show evidence of mild ketoacidosis , with elevation in anion gap and low carbon dioxide. She feels improved and has more energy, nausea and vomiting have resolved. - Review of Systems General: Denies: Fever, Chills Pulmonary: Reports: No Symptoms Cardiovascular: Reports: No Symptoms Gastrointestinal: Reports: No Symptoms - Patient Data Vitals - Most Recent: Last Vital Signs Temp 97.0 F 05/27/18 07:00 Pulse 111 H 05/27/18 09:00 Resp 14 05/27/18 09:00 BP 85/44 L 05/27/18 09:00 Pulse Ox 100 05/27/18 09:00 Weight - Most Recent: 173 lb 15.997 oz I&O - Last 24 Hours: Intake & Output 05/26/18 05/27/18 05/27/18 22:59 06:59 14:59 Intake Total 327 280 3476 Output Total 1500 Balance -539 582 7168 Lab Results Last 24 Hours: Laboratory Results - last 24 hr 05/26/18 05/26/18 05/26/18 Range/Units 13:47 13:47 13:47 WBC 10.1 (4.5-11.0) K/uL RBC 6.16 H (3.30-5.50) M/uL Hgb 16.3 H (12.0-15.0) g/dL Hct 51.3 H (36.0-48.0) % MCV 83 (80-98) fL MCH 27 (27-31) pg MCHC 32 (32-36) % Plt Count 278 (150-400) K/uL Neut % (Auto) 78 H (36-66) % Lymph % (Auto) 17 L (24-44) % [place] % (Auto) 6 (2-6) % Eos % (Auto) 0 L (2-4) % Baso % (Auto) 0 (0-1) % Puncture Site ABG pH (7.350-7.450) ABG pCO2 (35.0-42.0) mmHg ABG pO2 (75.0-100.0) mmHg ABG HCO3 (22.0-26.0) mmol/L ABG Total CO2 (21.0-25.0) mmol/L ABG O2 Saturation (95.0-98.0) % ABG O2 Content (15.0-23.0) %vol ABG Base Excess mm/L ABG Hemoglobin (12.0-16.0) g/dL ABG Oxyhemoglobin % ABG Carboxyhemoglobin (0.0-1.6) % ABG Methemoglobin % Kirill Test O2 Delivery Device Sodium 136 L (140-148) mmol/L Potassium 4.6 (3.6-5.2) mmol/L Chloride 101 (100-108) mmol/L Carbon Dioxide 8 L (21-32) mmol/L Anion Gap 31.6 H (5.0-14.0) mmol/L BUN 17 (7-18) mg/dL Creatinine 1.0 (0.6-1.0) mg/dL Est Cr Clr Drug Dosing 86.75 mL/min Estimated GFR (MDRD) > 60 (>60) Glucose 326 H (74-106) mg/dL Calcium 9.4 (8.5-10.1) mg/dL Phosphorus (2.5-4.9) mg/dL Magnesium (1.8-2.4) mg/dL Total Bilirubin 0.5 (0.2-1.0) mg/dL AST 16 D (15-37) U/L ALT 12 (12-78) U/L Alkaline Phosphatase 128 H (46-116) U/L Total Protein 9.1 H (6.4-8.2) g/dL Albumin 4.2 (3.4-5.0) g/dL Globulin 4.9 H (2.3-3.5) g/dL Albumin/Globulin Ratio 0.9 L (1.2-2.2) Ketones Large H (NEGATIVE) 05/26/18 05/26/18 05/26/18 Range/Units 14:29 16:22 18:51 WBC (4.5-11.0) K/uL RBC (3.30-5.50) M/uL Hgb (12.0-15.0) g/dL Hct (36.0-48.0) % MCV (80-98) fL MCH (27-31) pg MCHC (32-36) % Plt Count (150-400) K/uL Neut % (Auto) (36-66) % Lymph % (Auto) (24-44) % [place] % (Auto) (2-6) % Eos % (Auto) (2-4) % Baso % (Auto) (0-1) % Puncture Site Rt brachial ABG pH 7.156 L* (7.350-7.450) ABG pCO2 10.0 L* (35.0-42.0) mmHg ABG pO2 123.0 H (75.0-100.0) mmHg ABG HCO3 3.4 L (22.0-26.0) mmol/L ABG Total CO2 3.1 L (21.0-25.0) mmol/L ABG O2 Saturation 95.5 (95.0-98.0) % ABG O2 Content 21.3 (15.0-23.0) %vol ABG Base Excess -25.5 mm/L ABG Hemoglobin 15.9 (12.0-16.0) g/dL ABG Oxyhemoglobin 94.6 % ABG Carboxyhemoglobin -0.1 L (0.0-1.6) % ABG Methemoglobin 1.0 % Kirill Test Passed O2 Delivery Device Room air Sodium 138 L (140-148) mmol/L Potassium 4.8 4.0 (3.6-5.2) mmol/L Chloride 105 (100-108) mmol/L Carbon Dioxide 4 L (21-32) mmol/L Anion Gap 33.8 H (5.0-14.0) mmol/L BUN 15 (7-18) mg/dL Creatinine 0.8 (0.6-1.0) mg/dL Est Cr Clr Drug Dosing 108.44 mL/min Estimated GFR (MDRD) > 60 (>60) Glucose 314 H (74-106) mg/dL Calcium 8.5 (8.5-10.1) mg/dL Phosphorus 3.2 (2.5-4.9) mg/dL Magnesium 1.6 L D (1.8-2.4) mg/dL Total Bilirubin (0.2-1.0) mg/dL AST (15-37) U/L ALT (12-78) U/L Alkaline Phosphatase (46-116) U/L Total Protein (6.4-8.2) g/dL Albumin (3.4-5.0) g/dL Globulin (2.3-3.5) g/dL Albumin/Globulin Ratio (1.2-2.2) Ketones (NEGATIVE) 05/26/18 05/26/18 05/27/18 Range/Units 20:26 22:30 00:22 WBC (4.5-11.0) K/uL RBC (3.30-5.50) M/uL Hgb (12.0-15.0) g/dL Hct (36.0-48.0) % MCV (80-98) fL MCH (27-31) pg MCHC (32-36) % Plt Count (150-400) K/uL Neut % (Auto) (36-66) % Lymph % (Auto) (24-44) % [place] % (Auto) (2-6) % Eos % (Auto) (2-4) % Baso % (Auto) (0-1) % Puncture Site ABG pH (7.350-7.450) ABG pCO2 (35.0-42.0) mmHg ABG pO2 (75.0-100.0) mmHg ABG HCO3 (22.0-26.0) mmol/L ABG Total CO2 (21.0-25.0) mmol/L ABG O2 Saturation (95.0-98.0) % ABG O2 Content (15.0-23.0) %vol ABG Base Excess mm/L ABG Hemoglobin (12.0-16.0) g/dL ABG Oxyhemoglobin % ABG Carboxyhemoglobin (0.0-1.6) % ABG Methemoglobin % Kirill Test O2 Delivery Device Sodium 139 L 137 L (140-148) mmol/L Potassium 4.2 4.4 3.1 L (3.6-5.2) mmol/L Chloride 108 108 (100-108) mmol/L Carbon Dioxide 8 L 17 L (21-32) mmol/L Anion Gap 27.2 H 15.1 H (5.0-14.0) mmol/L BUN 13 11 (7-18) mg/dL Creatinine 0.7 0.7 (0.6-1.0) mg/dL Est Cr Clr Drug Dosing 123.93 123.93 mL/min Estimated GFR (MDRD) > 60 > 60 (>60) Glucose 216 H 141 H (74-106) mg/dL Calcium 8.4 L 8.3 L (8.5-10.1) mg/dL Phosphorus 1.5 L (2.5-4.9) mg/dL Magnesium 1.8 (1.8-2.4) mg/dL Total Bilirubin (0.2-1.0) mg/dL AST (15-37) U/L ALT (12-78) U/L Alkaline Phosphatase (46-116) U/L Total Protein (6.4-8.2) g/dL Albumin (3.4-5.0) g/dL Globulin (2.3-3.5) g/dL Albumin/Globulin Ratio (1.2-2.2) Ketones (NEGATIVE) 05/27/18 05/27/18 05/27/18 Range/Units 02:22 04:05 04:05 WBC 8.8 (4.5-11.0) K/uL RBC 4.90 (3.30-5.50) M/uL Hgb 13.3 D (12.0-15.0) g/dL Hct 40.5 (36.0-48.0) % MCV 83 (80-98) fL MCH 27 (27-31) pg MCHC 33 (32-36) % Plt Count 229 (150-400) K/uL Neut % (Auto) 64 (36-66) % Lymph % (Auto) 26 (24-44) % [place] % (Auto) 9 H (2-6) % Eos % (Auto) 0 L (2-4) % Baso % (Auto) 0 (0-1) % Puncture Site ABG pH (7.350-7.450) ABG pCO2 (35.0-42.0) mmHg ABG pO2 (75.0-100.0) mmHg ABG HCO3 (22.0-26.0) mmol/L ABG Total CO2 (21.0-25.0) mmol/L ABG O2 Saturation (95.0-98.0) % ABG O2 Content (15.0-23.0) %vol ABG Base Excess mm/L ABG Hemoglobin (12.0-16.0) g/dL ABG Oxyhemoglobin % ABG Carboxyhemoglobin (0.0-1.6) % ABG Methemoglobin % Kirill Test O2 Delivery Device Sodium 138 L (140-148) mmol/L Potassium 4.3 3.7 (3.6-5.2) mmol/L Chloride 108 (100-108) mmol/L Carbon Dioxide 17 L (21-32) mmol/L Anion Gap 16.7 H (5.0-14.0) mmol/L BUN 10 (7-18) mg/dL Creatinine 0.6 (0.6-1.0) mg/dL Est Cr Clr Drug Dosing 144.58 mL/min Estimated GFR (MDRD) > 60 (>60) Glucose 133 H (74-106) mg/dL Calcium 8.2 L (8.5-10.1) mg/dL Phosphorus 1.8 L (2.5-4.9) mg/dL Magnesium 1.6 L (1.8-2.4) mg/dL Total Bilirubin (0.2-1.0) mg/dL AST (15-37) U/L ALT (12-78) U/L Alkaline Phosphatase (46-116) U/L Total Protein (6.4-8.2) g/dL Albumin (3.4-5.0) g/dL Globulin (2.3-3.5) g/dL Albumin/Globulin Ratio (1.2-2.2) Ketones (NEGATIVE) 05/27/18 05/27/18 Range/Units 06:40 08:28 WBC (4.5-11.0) K/uL RBC (3.30-5.50) M/uL Hgb (12.0-15.0) g/dL Hct (36.0-48.0) % MCV (80-98) fL MCH (27-31) pg MCHC (32-36) % Plt Count (150-400) K/uL Neut % (Auto) (36-66) % Lymph % (Auto) (24-44) % [place] % (Auto) (2-6) % Eos % (Auto) (2-4) % Baso % (Auto) (0-1) % Puncture Site ABG pH (7.350-7.450) ABG pCO2 (35.0-42.0) mmHg ABG pO2 (75.0-100.0) mmHg ABG HCO3 (22.0-26.0) mmol/L ABG Total CO2 (21.0-25.0) mmol/L ABG O2 Saturation (95.0-98.0) % ABG O2 Content (15.0-23.0) %vol ABG Base Excess mm/L ABG Hemoglobin (12.0-16.0) g/dL ABG Oxyhemoglobin % ABG Carboxyhemoglobin (0.0-1.6) % ABG Methemoglobin % Kirill Test O2 Delivery Device Sodium 138 L (140-148) mmol/L Potassium 3.7 3.5 L (3.6-5.2) mmol/L Chloride 109 H (100-108) mmol/L Carbon Dioxide 18 L (21-32) mmol/L Anion Gap 14.5 H (5.0-14.0) mmol/L BUN 9 (7-18) mg/dL Creatinine 0.6 (0.6-1.0) mg/dL Est Cr Clr Drug Dosing 144.58 mL/min Estimated GFR (MDRD) > 60 (>60) Glucose 128 H (74-106) mg/dL Calcium 8.3 L (8.5-10.1) mg/dL Phosphorus (2.5-4.9) mg/dL Magnesium (1.8-2.4) mg/dL Total Bilirubin (0.2-1.0) mg/dL AST (15-37) U/L ALT (12-78) U/L Alkaline Phosphatase (46-116) U/L Total Protein (6.4-8.2) g/dL Albumin (3.4-5.0) g/dL Globulin (2.3-3.5) g/dL Albumin/Globulin Ratio (1.2-2.2) Ketones (NEGATIVE) Med Orders - Current: Current Medications Acetaminophen (Tylenol) 650 mg PO Q4H PRN PRN Reason: Pain (Mild 1-3)/fever Dextrose/Water (Dextrose 50% In Water) 50 ml IVPUSH ONETIME PRN PRN Reason: Blood Glucose Dextrose/Sodium Chloride (Dextrose 5%-1/2 Ns) 1,000 mls @ 150 mls/hr IV .CONTINUOUS PRN PRN Reason: Blood Glucose Last Admin: 05/27/18 07:21 Dose: 150 mls/hr Insulin Human Regular 100 unit (/ Sodium Chloride) 100 mls @ 7.89 mls/hr IV TITRATE SUSAN; Protocol Last Titration: 05/27/18 09:22 Dose: 0.03 units/kg/hr, 3 mls/hr Sodium Chloride (Normal Saline) 2,000 mls @ 500 mls/hr IV .CONTINUOUS PRN PRN Reason: Blood Glucose Last Admin: 05/26/18 17:24 Dose: 500 mls/hr Magnesium Sulfate (Magnesium Sulfate 2 Gm In Water 50 Ml) 50 mls @ 25 mls/hr IV ASDIRECTED PRN PRN Reason: low magnesium Insulin Glargine (Lantus Solostar) 40 units SUBCUT BID SUSAN Lorazepam (Ativan) 0.5 mg IVPUSH Q2H PRN PRN Reason: Anxiety Ondansetron HCl (Zofran) 4 mg IV Q4H PRN PRN Reason: Nausea/Vomiting Pantoprazole Sodium (Protonix) 40 mg PO ACBREAKFAST SUSAN Last Admin: 05/27/18 08:05 Dose: 40 mg Potassium Chloride (Potassium Chloride Solution) 40 meq PO NOW PRN PRN Reason: Hypokalemia Last Admin: 05/27/18 01:09 Dose: 40 meq Potassium Chloride (Potassium Chloride Solution) 40 meq PO Q2H PRN PRN Reason: Hypokalemia Potassium Chloride (Potassium Chloride Solution) 20 meq PO ASDIRECTED PRN PRN Reason: Hypokalemia Senna/Docusate Sodium (Senna Plus) 1 tab PO BID PRN PRN Reason: Constipation Sodium Chloride (Saline Flush) 10 ml FLUSH ASDIRECTED PRN PRN Reason: Keep Vein Open Discontinued Medications Acetaminophen (Tylenol) 650 mg PO NOW ONE Stop: 05/26/18 14:35 Last Admin: 05/26/18 14:41 Dose: 650 mg Sodium Chloride (Normal Saline) 1,000 mls @ 999 mls/hr IV .BOLUS ONE Stop: 05/26/18 14:47 Last Admin: 05/26/18 13:58 Dose: 999 mls/hr Sodium Chloride (Normal Saline) 1,000 mls @ 500 mls/hr IV ASDIRECTED SUSAN Insulin Human Regular 100 unit (/ Sodium Chloride) 100 mls @ 7.89 mls/hr IV TITRATE SUSAN; Protocol Insulin Human Regular 100 unit (/ Sodium Chloride) 100 mls @ 7.89 mls/hr IV TITRATE SUSAN; Protocol Last Admin: 05/26/18 16:00 Dose: 0.1 units/kg/hr, 7.89 mls/hr Magnesium Sulfate (Magnesium Sulfate 2 Gm In Water 50 Ml) 50 mls @ 25 mls/hr IV ONETIME PRN PRN Reason: low magnesium Last Admin: 05/27/18 09:09 Dose: 25 mls/hr Insulin Human Regular (Humulin R) 8 unit IVPUSH ONETIME ONE Stop: 05/26/18 14:31 Last Admin: 05/26/18 14:38 Dose: 8 unit Metoclopramide HCl (Reglan) 10 mg IVPUSH ONETIME ONE Stop: 05/26/18 14:26 Last Admin: 05/26/18 14:29 Dose: 10 mg Ondansetron HCl (Zofran) 4 mg IVPUSH ONETIME ONE Stop: 05/26/18 13:48 Last Admin: 05/26/18 13:59 Dose: 4 mg Potassium Chloride (Potassium Chloride Solution) 20 meq PO NOW PRN PRN Reason: Hypokalemia Last Admin: 05/27/18 09:08 Dose: 20 meq Sodium Chloride (Saline Flush) 10 ml FLUSH ASDIRECTED PRN PRN Reason: Keep Vein Open Last Admin: 05/26/18 14:07 Dose: 10 ml - Exam General: Alert, Oriented, Cooperative, Mild Distress Lungs: Clear to Auscultation, Normal Respiratory Effort Cardiovascular: Regular Rate, Regular Rhythm, No Murmurs GI/Abdominal Exam: Soft, Non-Tender, No Organomegaly, No Distention Extremities: Non-Tender, No Pedal Edema - Problem List Review Problem List Initiated/Reviewed/Updated: Yes - My Orders Last 24 Hours: My Active Orders 05/26/18 15:37 Resuscitation Status Routine 05/26/18 16:22 Patient Status [ADT] Routine Ambulate [RC] QID Cardiac Monitoring [RC] Q6H Diabetes Education [RC] Click to Edit Intake and Output [RC] QSHIFT Notify Provider Laboratory Res [RC] ASDIRECTED Notify Provider Laboratory Res [RC] ASDIRECTED Notify Provider Laboratory Res [RC] ASDIRECTED Notify Provider Laboratory Res [RC] ASDIRECTED Notify Provider Vital Signs [RC] ASDIRECTED Oxygen Therapy [RC] PRN Peripheral IV Care [RC] Q12H Pulse Oximetry [RC] CONTINUOUS Up With Assistance [RC] ASDIRECTED Up to Chair [RC] QID VTE/DVT Education [RC] Per Unit Routine Vital Signs [RC] Q1H Acetaminophen [Tylenol] 650 mg PO Q4H PRN Dextrose 5%-0.45% NaCl [Dextrose 5%-1/2 NS] 1,000 ml IV .CONTINUOUS Dextrose 50% in Water 50 ml IVPUSH ONETIME PRN Docusate Sodium/Sennosides [Senna Plus] 1 tab PO BID PRN LORazepam [Ativan] 0.5 mg IVPUSH Q2H PRN Ondansetron [Zofran] 4 mg IV Q4H PRN Potassium Chloride [Potassium Chloride Solution] 40 meq PO NOW PRN Potassium Chloride [Potassium Chloride Solution] 40 meq PO Q2H PRN Sodium Chloride 0.9% [Normal Saline] 2,000 ml IV .CONTINUOUS Sodium Chloride 0.9% [Saline Flush] 10 ml FLUSH ASDIRECTED PRN Medication Continuation Instructions [OM.PC] ASDIRECTED Medication Discontinuation Instructions [OM.PC] ASDIRECTED Peripheral IV Insertion Adult [OM.PC] Routine Sequential Compression Device [OM.PC] Per Unit Routine 05/26/18 16:50 Insulin Regular, Human [HumuLIN R] 100 unit Sodium Chloride 0.9% [Normal Saline] 100 ml IV TITRATE 05/26/18 18:00 Pantoprazole [ProTONIX] 40 mg PO ACBREAKFAST 05/26/18 Lunch Consistent Carbohydrate Diet [DIET] 05/27/18 09:03 Potassium Chloride [Potassium Chloride Solution] 20 meq PO ASDIRECTED PRN 05/27/18 09:04 Magnesium Sulfate/Water [Magnesium Sulfate 2 GM in Water 50 ML] 50 ml IV ASDIRECTED 05/27/18 10:00 Insulin Glarg,Human.Rec.Analog [LantUS Solostar] 40 units SUBCUT BID 05/27/18 10:22 MAGNESIUM [CHEM] Q6H PHOSPHORUS [CHEM] Q6H POTASSIUM,K [CHEM] Q2H 05/27/18 12:22 BASIC METABOLIC PANEL,BMP [CHEM] Q4H 05/27/18 14:22 POTASSIUM,K [CHEM] Q2H 05/28/18 05:00 BASIC METABOLIC PANEL,BMP [CHEM] Timed MAGNESIUM [CHEM] Timed - Plan Plan:: ASSESSMENT AND PLAN DIABETIC KETOACIDOSIS-good improvement since admission, ketoacidosis has not totally resolved yet. Glucose levels have been within good range over the past several hours. -Vigorous IV fluid replacement per protocol -IV insulins per protocol -Frequent monitoring of electrolytes and replacement per protocol -At the time of discharge arrange for primary care and frequent monitoring of diabetes DRUG ABUSE-on admission she expresses interest in treatment of her drug addiction with methamphetamine and marijuana MAINTENANCE ISSUES -DVT prophylaxis; SCUDs -GI prophylaxis; Protonix 40 mg by mouth daily -Frausto catheter; not indicated -Nutrition; consistent carb diet -Nicotine dependence; not required CODE STATUS-FULL CODE ADMISSION STATUS-patient will be admitted to inpatient status, expect at least a 2 night hospital stay for evaluation and management of problems as outlined above. At the time of this admission I do not reasonably expected evaluation and management of this problem will require more than a 96 hour hospital stay. DISPOSITION-anticipate discharge to home after the hospital stay. PRIMARY CARE PROVIDER-she does not currently have a primary care provider
[2018-05-27] MEDS ORDERED: Glucose Gel 15 GM in 37.5 GM Tube PO PRN (16:39)
[2018-05-27] MEDS ORDERED: Potassium Chloride 20 MEQ Tab.ER PO ONE (17:00)
[2018-05-27] MEDS: Insulin Lispro 100 Unit/ML 3 ML KwikPen SUBCUT SCH ×2 (17:54→20:25)
[2018-05-28] MEDS ORDERED: Magnesium Sulfate/Water 2 GM in Premix Bag 1 BAG IV ONE (05:19)
[2018-05-28] MEDS ORDERED: Potassium Chloride 20 MEQ Tab.ER PO ONE (05:19)
[2018-05-28 06:05] VITALS: BP 106/58
[2018-05-28] MEDS: Insulin Lispro 100 Unit/ML 3 ML KwikPen SUBCUT SCH ×2 (07:18→10:07)
[2018-05-28] MEDS: Pantoprazole 40 MG Tab.CR PO SCH (07:45)
[2018-05-28] MEDS: Insulin Glargine,Human Rec. Analog 100 Units/ML 3 ML Pen SUBCUT SCH (08:04)
--- NOTE | 2018-05-28 09:22 | PCM.DCSUM1 ---
Discharge Summary - Hospital Course Brief History: Ms. Gómez is a 27-year-old woman with type 1 diabetes mellitus. She was admitted through the emergency department with diabetic ketoacidosis. - Discharge Data Discharge Date: 05/28/18 Discharge Disposition: Home, Self-Care 01 Condition: Fair - Discharge Diagnosis/Problem(s) (1) Diabetic ketoacidosis SNOMED Code(s): 871527343, 937777296 ICD Code: E13.10 - OTH DIABETES MELLITUS WITH KETOACIDOSIS WITHOUT COMA Status: Acute Current Visit: Yes Qualifiers: Diabetes mellitus type: other specified (including JOVANY) Diabetes mellitus complication detail: without coma Qualified Code(s): E13.10 - Other specified diabetes mellitus with ketoacidosis without coma (2) Methamphetamine abuse SNOMED Code(s): 547857527 ICD Code: F15.10 - OTHER STIMULANT ABUSE, UNCOMPLICATED Status: Chronic Current Visit: No (3) Type 1 diabetes mellitus SNOMED Code(s): 18969940 ICD Code: E10.9 - TYPE 1 DIABETES MELLITUS WITHOUT COMPLICATIONS Status: Chronic Current Visit: No - Patient Summary/Data Hospital Course: Ms. Gómez is a 27-year-old woman who was admitted through the emergency department with weakness, nausea, and vomiting secondary to diabetic ketoacidosis. She has a known and long-standing history of type 1 diabetes mellitus, with ongoing poor control. She has had recurrent admissions for ketoacidosis, because she runs out of the insulin. She also has a known history of drug abuse and admits to recently taking methamphetamine and marijuana on a daily basis. She ran out of all of her insulin approximately 3 days ago and has become progressively more weak since then. On evaluation in the emergency department glucose level is elevated at 360 and she has obvious evidence of ketoacidosis with a pH of 7.15, carbon dioxide level of 8 and an anion gap of 31. On admission she was treated with vigorous IV fluid replacement per ketoacidosis protocol. Insulin bolus dose was given in the emergency department and she was started on a continuous infusion of insulin also per protocol. Electrolytes including magnesium, potassium, and phosphorus were monitored frequently and replaced as needed. After 24 hours of insulin infusion glucose levels were within desired range and ketoacidosis has essentially resolved. She will be seen by lye boiler prior to discharge. A rule 25 assessment will be scheduled for her on an outpatient basis, she reports that she is interested in obtaining help for her drug use. Follow-up appointment will be scheduled with her primary care provider within one week. Activity will be as tolerated and she will be on a diabetic diet. - Patient Instructions Diet: Diabetic Diet Activity: As Tolerated Other/Special Instructions: Please schedule outpatient rule 25 assessment. Please schedule follow-up appointment with primary care provider within one week. Please have lye boiler see the patient prior to discharge. - Discharge Plan *PRESCRIPTION DRUG MONITORING PROGRAM REVIEWED*: Not Applicable *COPY OF PRESCRIPTION DRUG MONITORING REPORT IN PATIENT SRI: Not Applicable Home Medications: Home Meds Insulin Aspart [Novolog Flexpen] 10 unit SQ ASDIRECTED 03/13/14 [History] Insulin Detemir [Levemir] 40 unit SQ BID 03/13/14 [History] Referrals: Ingrid Cerna NP [Primary Care Provider] - - Discharge Summary/Plan Comment DC Time >30 min.: No - Patient Data Vitals - Most Recent: Last Vital Signs Temp 96.4 F 05/28/18 07:48 Pulse 88 05/28/18 07:48 Resp 15 05/28/18 07:48 BP 106/58 L 05/28/18 07:48 Pulse Ox 99 05/28/18 07:48 Weight - Most Recent: 173 lb 15.997 oz I&O - Last 24 hours: Intake & Output 05/27/18 05/28/18 05/28/18 22:59 06:59 14:59 Intake Total 600 1500 Output Total 1400 Balance -800 1500 Lab Results - Last 24 hrs: Laboratory Results - last 24 hr 05/27/18 05/27/18 05/27/18 Range/Units 10:25 12:40 14:22 Sodium 137 L (140-148) mmol/L Potassium 3.7 3.8 4.1 (3.6-5.2) mmol/L Chloride 108 (100-108) mmol/L Carbon Dioxide 18 L (21-32) mmol/L Anion Gap 14.8 H (5.0-14.0) mmol/L BUN 7 (7-18) mg/dL Creatinine 0.6 (0.6-1.0) mg/dL Est Cr Clr Drug Dosing 144.06 mL/min Estimated GFR (MDRD) > 60 (>60) Glucose 238 H (74-106) mg/dL Calcium 7.7 L (8.5-10.1) mg/dL Phosphorus 1.4 L (2.5-4.9) mg/dL Magnesium 2.0 (1.8-2.4) mg/dL 05/27/18 05/28/18 Range/Units 16:10 04:19 Sodium 139 L 142 (140-148) mmol/L Potassium 3.5 L 3.3 L (3.6-5.2) mmol/L Chloride 110 H 109 H (100-108) mmol/L Carbon Dioxide 19 L 24 (21-32) mmol/L Anion Gap 13.5 12.3 (5.0-14.0) mmol/L BUN 6 L 8 (7-18) mg/dL Creatinine 0.7 0.4 L (0.6-1.0) mg/dL Est Cr Clr Drug Dosing 123.48 216.10 mL/min Estimated GFR (MDRD) > 60 > 60 (>60) Glucose 105 120 H (74-106) mg/dL Calcium 8.1 L 8.0 L (8.5-10.1) mg/dL Phosphorus (2.5-4.9) mg/dL Magnesium 1.9 1.7 L (1.8-2.4) mg/dL Med Orders - Current: Current Medications Acetaminophen (Tylenol) 650 mg PO Q4H PRN PRN Reason: Pain (Mild 1-3)/fever Dextrose (Glutose 15) 15 gm PO ONETIME PRN PRN Reason: Hypoglycemia Dextrose/Water (Dextrose 50% In Water) 50 ml IVPUSH ONETIME PRN PRN Reason: Blood Glucose Insulin Glargine (Lantus Solostar) 40 units SUBCUT BID [facility] Last Admin: 05/28/18 08:04 Dose: 40 units Insulin Human Lispro (Humalog) 0 unit SUBCUT QIDACANDBED [facility]; Protocol Last Admin: 05/28/18 07:18 Dose: Not Given Lorazepam (Ativan) 0.5 mg IVPUSH Q2H PRN PRN Reason: Anxiety Ondansetron HCl (Zofran) 4 mg IV Q4H PRN PRN Reason: Nausea/Vomiting Pantoprazole Sodium (Protonix) 40 mg PO ACBREAKFAST [facility] Last Admin: 05/28/18 07:45 Dose: 40 mg Senna/Docusate Sodium (Senna Plus) 1 tab PO BID PRN PRN Reason: Constipation Sodium Chloride (Saline Flush) 10 ml FLUSH ASDIRECTED PRN PRN Reason: Keep Vein Open Discontinued Medications Acetaminophen (Tylenol) 650 mg PO NOW ONE Stop: 05/26/18 14:35 Last Admin: 05/26/18 14:41 Dose: 650 mg Sodium Chloride (Normal Saline) 1,000 mls @ 999 mls/hr IV .BOLUS ONE Stop: 05/26/18 14:47 Last Admin: 05/26/18 13:58 Dose: 999 mls/hr Sodium Chloride (Normal Saline) 1,000 mls @ 500 mls/hr IV ASDIRECTED SUSAN Insulin Human Regular 100 unit (/ Sodium Chloride) 100 mls @ 7.89 mls/hr IV TITRATE SUSAN; Protocol Insulin Human Regular 100 unit (/ Sodium Chloride) 100 mls @ 7.89 mls/hr IV TITRATE SUSAN; Protocol Last Admin: 05/26/18 16:00 Dose: 0.1 units/kg/hr, 7.89 mls/hr Dextrose/Sodium Chloride (Dextrose 5%-1/2 Ns) 1,000 mls @ 150 mls/hr IV .CONTINUOUS PRN PRN Reason: Blood Glucose Last Admin: 05/27/18 14:11 Dose: 150 mls/hr Insulin Human Regular 100 unit (/ Sodium Chloride) 100 mls @ 7.89 mls/hr IV TITRATE SUSAN; Protocol Last Titration: 05/27/18 16:08 Dose: 0.09 units/kg/hr, 7.5 mls/hr Magnesium Sulfate (Magnesium Sulfate 2 Gm In Water 50 Ml) 50 mls @ 25 mls/hr IV ONETIME PRN PRN Reason: low magnesium Last Admin: 05/27/18 09:09 Dose: 25 mls/hr Sodium Chloride (Normal Saline) 2,000 mls @ 500 mls/hr IV .CONTINUOUS PRN PRN Reason: Blood Glucose Last Admin: 05/26/18 17:24 Dose: 500 mls/hr Magnesium Sulfate (Magnesium Sulfate 2 Gm In Water 50 Ml) 50 mls @ 25 mls/hr IV ASDIRECTED PRN PRN Reason: low magnesium Magnesium Sulfate 2 gm/ Premix 50 mls @ 25 mls/hr IV ONETIME ONE Stop: 05/28/18 07:18 Last Admin: 05/28/18 05:57 Dose: 25 mls/hr Insulin Human Regular (Humulin R) 8 unit IVPUSH ONETIME ONE Stop: 05/26/18 14:31 Last Admin: 05/26/18 14:38 Dose: 8 unit Metoclopramide HCl (Reglan) 10 mg IVPUSH ONETIME ONE Stop: 05/26/18 14:26 Last Admin: 05/26/18 14:29 Dose: 10 mg Ondansetron HCl (Zofran) 4 mg IVPUSH ONETIME ONE Stop: 05/26/18 13:48 Last Admin: 05/26/18 13:59 Dose: 4 mg Potassium Chloride (Potassium Chloride Solution) 20 meq PO NOW PRN PRN Reason: Hypokalemia Last Admin: 05/27/18 09:08 Dose: 20 meq Potassium Chloride (Potassium Chloride Solution) 40 meq PO NOW PRN PRN Reason: Hypokalemia Last Admin: 05/27/18 01:09 Dose: 40 meq Potassium Chloride (Potassium Chloride Solution) 40 meq PO Q2H PRN PRN Reason: Hypokalemia Potassium Chloride (Potassium Chloride Solution) 20 meq PO ASDIRECTED PRN PRN Reason: Hypokalemia Last Admin: 05/27/18 13:25 Dose: 20 meq Potassium Chloride (Klor-Con M20) 40 meq PO ONETIME ONE Stop: 05/27/18 17:01 Last Admin: 05/27/18 16:47 Dose: 40 meq Potassium Chloride (Klor-Con M20) 40 meq PO ONETIME ONE Stop: 05/28/18 05:20 Last Admin: 05/28/18 05:57 Dose: 40 meq Sodium Chloride (Saline Flush) 10 ml FLUSH ASDIRECTED PRN PRN Reason: Keep Vein Open Last Admin: 05/26/18 14:07 Dose: 10 ml - Exam General: Reports: Alert, Oriented, Cooperative, No Acute Distress Lungs: Reports: Clear to Auscultation, Normal Respiratory Effort Cardiovascular: Reports: Regular Rate, Regular Rhythm, No Murmurs GI/Abdominal Exam: Soft, Non-Tender, No Organomegaly, No Distention Extremities: Non-Tender, No Pedal Edema
== END 2018-05-28 10:58 | disposition home or self-care (01) | DRG 639 ==
LOC: JP.ED 13:09 → JP.ICU 15:36 → UNDOADMIN 15:36
PROVIDERS: ADMIT Hospitalist; ATTEND Hospitalist
DX: E10.10 Type 1 diabetes mellitus with ketoacidosis without coma (principal); Z79.4 Long term (current) use of insulin; F15.10 Other stimulant abuse, uncomplicated; F12.10 Cannabis abuse, uncomplicated; F17.210 Nicotine dependence, cigarettes, uncomplicated; Z88.8 Allergy status to other drugs, medicaments and biological substances; Z91.128 Patient's intentional underdosing of medication regimen for other reason; T38.3X6D Underdosing of insulin and oral hypoglycemic [antidiabetic] drugs, subsequent encounter
CPT/HCPCS: 36415; 36600; 80048; 80053; 82009; 82803; 82962; 83735; 84100; 84132; 85025; 96361; 96374; 96375; 99283-25; A9270-GY; J1815; J1815-GY; J2405; J2765; J3475; J7030

== ENCOUNTER 2019-03-09 21:47 | Emergency (ER) | payer SELFPAY ==
[2019-03-09] MEDS ORDERED: Sodium Chloride 0.9% 10 ML Syringe FLUSH PRN ×2 (22:15→22:25)
[2019-03-09] MEDS ORDERED: Ondansetron 4 MG/2 ML SDV IVPUSH ONE (22:22)
--- NOTE | 2019-03-09 22:23 | EDM.PDOC ---
ED HPI GENERAL MEDICAL PROBLEM - General Chief Complaint: Diabetic Complaint Stated Complaint: MEDICAL Time Seen by Provider: 03/09/19 22:12 Source of Information: Reports: Patient, Family, RN Notes Reviewed History Limitations: Reports: No Limitations - History of Present Illness INITIAL COMMENTS - FREE TEXT/NARRATIVE: 28-year-old patient presents emergency department today concerned about DKA, she has known history of diabetes mellitus type 1 is insulin-dependent both short and long-acting unfortunately she states she was recently incarcerated and when she was discharged she did not receive her long-acting insulin she has been out of that medication for some time she is trying to follow-up with her primary care this week. She states she has been able to take her short acting insulin. She does admit to fever today which did respond to Tylenol denies any other specific symptoms - Related Data Allergies Allergy/AdvReac Type Severity Reaction Status Date / Time ibuprofen Allergy Unknown Swelling Verified 03/09/19 22:19 Home Meds: Home Meds Insulin Aspart [Novolog Flexpen] 10 unit SQ ASDIRECTED 03/13/14 [History] Insulin Detemir [Levemir] 40 unit SQ BID 03/13/14 [History] Past Medical History Gastrointestinal History: Reports: Cholelithiasis, Other (See Below) Other Gastrointestinal History: 90# weight loss in past year Musculoskeletal History: Reports: Other (See Below) Other Musculoskeletal History: chronic left knee pain Psychiatric History: Reports: Addiction Endocrine/Metabolic History: Reports: Diabetes, Type I, IDDM Hematologic History: Reports: Anemia Other Dermatologic History: boils on buttock and abdomin - Past Surgical History GI Surgical History: Reports: Cholecystectomy Social & Family History - Caffeine Use Caffeine Use: Reports: Coffee - Living Situation & Occupation Living situation: Reports: Single ED ROS GENERAL - Review of Systems Review Of Systems: See Below Constitutional: Reports: Fever, Weakness HEENT: Reports: No Symptoms Respiratory: Reports: No Symptoms Cardiovascular: Reports: No Symptoms Endocrine: Reports: High Glucose GI/Abdominal: Reports: Nausea : Reports: No Symptoms Musculoskeletal: Reports: Muscle Pain Skin: Reports: No Symptoms Neurological: Reports: No Symptoms ED EXAM GENERAL NO PERIP PULSE - Physical Exam Exam: See Below Text/Narrative:: General: Female, ill-appearing, alert and oriented x3 HEENT: head is atraumatic normocephalic, eyes pupils equal round reactive to light, sclera clear no conjunctivitis appreciated. Ears tympanic membranes clear and nicole landmarks and light reflex are present bilaterally canals are clear. Nose no septal deviation, nares are clear, no blood present. Mouth mucosa is dry and pink no erythema or exudate noted in soft palate, tongue is midline uvula is midline, dentition is poor . Neck: Supple no thyromegaly no tracheal deviation. Nodes: Cervical nodes subclavicular nodes nontender no palpable lymphadenopathy noted. Lungs: clear to auscultation bilaterally with symmetrical respirations, no adventitious noise appreciated. CV: Regular rate and rhythm S1 and S2 appreciated no murmurs rubs or gallops noted. Abdomen: Soft, nontender, no palpable masses or organomegaly appreciated, no distention no guarding bowel sounds are present, [scars ]. Neuro: GCS 15 Skin: Warm and dry, intact Extremities: No lower extremity edema appreciated, Course - Vital Signs Last Recorded V/S: Last Vital Signs Temp 99.0 F 03/09/19 23:06 Pulse 126 H 03/09/19 23:06 Resp 22 H 03/09/19 23:06 BP 143/93 H 03/09/19 23:06 Pulse Ox 98 03/09/19 23:06 - Orders/Labs/Meds Orders: Active Orders 24 hr Category Date Time Status Blood Glucose Check, Bedside [RC] STAT Care 03/09/19 22:15 Active Cardiac Monitoring [RC] CONTINUOUS Care 03/09/19 22:15 Active Communication Order [RC] STAT Care 03/09/19 22:15 Active Communication Order [RC] STAT Care 03/09/19 22:15 Active Oxygen Therapy, ED [RC] PRN Care 03/09/19 22:15 Active Peripheral IV Care [RC] . DIRECTED Care 03/09/19 22:15 Active Peripheral IV Care [RC] . DIRECTED Care 03/09/19 22:25 Active Chest 1V Frontal [CR] Stat Exams 03/09/19 22:15 Ordered CULTURE BLOOD [BC] Urgent Lab 03/09/19 22:20 Received CULTURE BLOOD [BC] Urgent Lab 03/09/19 22:35 Received GLUCOSE POC LAB TO COLLECT [POC] Stat Lab 03/10/19 00:30 Ordered GLYCOSYLATED HEMOGLOBIN,HGBA1C [CHEM] Stat Lab 03/09/19 22:15 Ordered HCG QUALITATIVE,URINE [URCHEM] Stat Lab 03/09/19 22:11 Ordered KETONES,URINE [URIN] Stat Lab 03/09/19 22:15 Ordered UA W/MICROSCOPIC [URIN] Urgent Lab 03/09/19 22:11 Ordered Insulin Regular, Human [HumuLIN R] 100 unit Med 03/09/19 23:30 Ordered Sodium Chloride 0.9% [Normal Saline] 99 ml IV TITRATE Sodium Chloride 0.9% [Normal Saline] 1,000 ml Med 03/09/19 22:30 Active IV ASDIRECTED Sodium Chloride 0.9% [Normal Saline] 1,000 ml Med 03/09/19 23:30 Ordered IV ASDIRECTED Sodium Chloride 0.9% [Saline Flush] Med 03/09/19 22:15 Active 10 ml FLUSH ASDIRECTED PRN Sodium Chloride 0.9% [Saline Flush] Med 03/09/19 22:25 Active 10 ml FLUSH ASDIRECTED PRN Blood Culture x2 Reflex Set [OM.PC] Urgent Oth 03/09/19 22:15 Ordered Peripheral IV Insertion Adult [OM.PC] Stat Oth 03/09/19 22:15 Ordered Peripheral IV Insertion Adult [OM.PC] Urgent Oth 03/09/19 22:25 Ordered Resuscitation Status Stat Resus Stat 03/09/19 22:15 Ordered Medication Orders Sodium Chloride (Normal Saline) 1,000 mls @ 999 mls/hr IV ASDIRECTED SUSAN Last Admin: 03/09/19 22:29 Dose: 999 mls/hr Insulin Human Regular 100 unit (/ Sodium Chloride) 100 mls @ 8 mls/hr IV TITRATE SUSAN; Protocol Sodium Chloride (Normal Saline) 1,000 mls @ 999 mls/hr IV ASDIRECTED SUSAN Last Admin: 03/09/19 23:24 Dose: 999 mls/hr Sodium Chloride (Saline Flush) 10 ml FLUSH ASDIRECTED PRN PRN Reason: Keep Vein Open Last Admin: 03/09/19 22:20 Dose: 10 ml Sodium Chloride (Saline Flush) 10 ml FLUSH ASDIRECTED PRN PRN Reason: Keep Vein Open Labs: Laboratory Tests 03/09/19 03/09/19 03/09/19 Range/Units 22:10 22:15 22:18 WBC (4.5-11.0) K/uL RBC (3.30-5.50) M/uL Hgb (12.0-15.0) g/dL Hct (36.0-48.0) % MCV (80-98) fL MCH (27-31) pg MCHC (32-36) % Plt Count (150-400) K/uL Neut % (Auto) (36-66) % Lymph % (Auto) (24-44) % [place] % (Auto) (2-6) % Eos % (Auto) (2-4) % Baso % (Auto) (0-1) % Puncture Site ABG pH (7.350-7.450) ABG pCO2 (35.0-42.0) mmHg ABG pO2 (75.0-100.0) mmHg ABG HCO3 (22.0-26.0) mmol/L ABG Total CO2 (21.0-25.0) mmol/L ABG O2 Saturation (95.0-98.0) % ABG O2 Content (15.0-23.0) %vol ABG Base Excess mm/L ABG Hemoglobin (12.0-16.0) g/dL ABG Oxyhemoglobin % ABG Carboxyhemoglobin (0.0-1.6) % ABG Methemoglobin % Kirill Test O2 Delivery Device Sodium 130 L (140-148) mmol/L Potassium 4.2 (3.6-5.2) mmol/L Chloride 97 L (100-108) mmol/L Carbon Dioxide 4 L (21-32) mmol/L Anion Gap 33.2 H (5.0-14.0) mmol/L BUN 11 (7-18) mg/dL Creatinine 0.7 D (0.6-1.0) mg/dL Est Cr Clr Drug Dosing 127.08 mL/min Estimated GFR (MDRD) > 60 (>60) Glucose 363 H (74-106) mg/dL Lactic Acid (0.4-2.0) mmol/L Calcium 8.6 (8.5-10.1) mg/dL Phosphorus 3.4 (2.5-4.9) mg/dL Magnesium 1.9 (1.8-2.4) mg/dL Total Bilirubin 0.4 (0.2-1.0) mg/dL AST 12 L (15-37) U/L ALT 11 L (12-78) U/L Alkaline Phosphatase 133 H (46-116) U/L Creatine Kinase (26-192) U/L Total Protein 7.9 (6.4-8.2) g/dL Albumin 3.7 (3.4-5.0) g/dL Globulin 4.2 H (2.3-3.5) g/dL Albumin/Globulin Ratio 0.9 L (1.2-2.2) Amylase 34 D (25-115) U/L Lipase 94 (73-393) U/L TSH, Ultra Sensitive 0.725 (0.358-3.740) uIU/mL Ketones Moderate H (NEGATIVE) 03/09/19 03/09/19 03/09/19 Range/Units 22:20 22:20 22:20 WBC 15.0 H (4.5-11.0) K/uL RBC 5.63 H (3.30-5.50) M/uL Hgb 14.9 (12.0-15.0) g/dL Hct 46.0 (36.0-48.0) % MCV 82 (80-98) fL MCH 27 (27-31) pg MCHC 32 (32-36) % Plt Count 207 (150-400) K/uL Neut % (Auto) 81 H (36-66) % Lymph % (Auto) 13 L (24-44) % [place] % (Auto) 6 (2-6) % Eos % (Auto) 0 L (2-4) % Baso % (Auto) 0 (0-1) % Puncture Site Rt radial ABG pH 7.150 L* (7.350-7.450) ABG pCO2 12.1 L* (35.0-42.0) mmHg ABG pO2 117.0 H (75.0-100.0) mmHg ABG HCO3 4.0 L (22.0-26.0) mmol/L ABG Total CO2 3.8 L (21.0-25.0) mmol/L ABG O2 Saturation 96.8 (95.0-98.0) % ABG O2 Content 20.0 (15.0-23.0) %vol ABG Base Excess -24.5 mm/L ABG Hemoglobin 14.9 (12.0-16.0) g/dL ABG Oxyhemoglobin 94.6 % ABG Carboxyhemoglobin 1.0 (0.0-1.6) % ABG Methemoglobin 1.3 % Kirill Test Pass O2 Delivery Device Room air Sodium (140-148) mmol/L Potassium (3.6-5.2) mmol/L Chloride (100-108) mmol/L Carbon Dioxide (21-32) mmol/L Anion Gap (5.0-14.0) mmol/L BUN (7-18) mg/dL Creatinine (0.6-1.0) mg/dL Est Cr Clr Drug Dosing mL/min Estimated GFR (MDRD) (>60) Glucose (74-106) mg/dL Lactic Acid 0.9 (0.4-2.0) mmol/L Calcium (8.5-10.1) mg/dL Phosphorus (2.5-4.9) mg/dL Magnesium (1.8-2.4) mg/dL Total Bilirubin (0.2-1.0) mg/dL AST (15-37) U/L ALT (12-78) U/L Alkaline Phosphatase (46-116) U/L Creatine Kinase (26-192) U/L Total Protein (6.4-8.2) g/dL Albumin (3.4-5.0) g/dL Globulin (2.3-3.5) g/dL Albumin/Globulin Ratio (1.2-2.2) Amylase (25-115) U/L Lipase (73-393) U/L TSH, Ultra Sensitive (0.358-3.740) uIU/mL Ketones (NEGATIVE) 03/09/ Range/Units 22:22 WBC (4.5-11.0) K/uL RBC (3.30-5.50) M/uL Hgb (12.0-15.0) g/dL Hct (36.0-48.0) % MCV (80-98) fL MCH (27-31) pg MCHC (32-36) % Plt Count (150-400) K/uL Neut % (Auto) (36-66) % Lymph % (Auto) (24-44) % [place] % (Auto) (2-6) % Eos % (Auto) (2-4) % Baso % (Auto) (0-1) % Puncture Site ABG pH (7.350-7.450) ABG pCO2 (35.0-42.0) mmHg ABG pO2 (75.0-100.0) mmHg ABG HCO3 (22.0-26.0) mmol/L ABG Total CO2 (21.0-25.0) mmol/L ABG O2 Saturation (95.0-98.0) % ABG O2 Content (15.0-23.0) %vol ABG Base Excess mm/L ABG Hemoglobin (12.0-16.0) g/dL ABG Oxyhemoglobin % ABG Carboxyhemoglobin (0.0-1.6) % ABG Methemoglobin % Kirill Test O2 Delivery Device Sodium (140-148) mmol/L Potassium (3.6-5.2) mmol/L Chloride (100-108) mmol/L Carbon Dioxide (21-32) mmol/L Anion Gap (5.0-14.0) mmol/L BUN (7-18) mg/dL Creatinine (0.6-1.0) mg/dL Est Cr Clr Drug Dosing mL/min Estimated GFR (MDRD) (>60) Glucose (74-106) mg/dL Lactic Acid (0.4-2.0) mmol/L Calcium (8.5-10.1) mg/dL Phosphorus (2.5-4.9) mg/dL Magnesium (1.8-2.4) mg/dL Total Bilirubin (0.2-1.0) mg/dL AST (15-37) U/L ALT (12-78) U/L Alkaline Phosphatase (46-116) U/L Creatine Kinase 28 (26-192) U/L Total Protein (6.4-8.2) g/dL Albumin (3.4-5.0) g/dL Globulin (2.3-3.5) g/dL Albumin/Globulin Ratio (1.2-2.2) Amylase (25-115) U/L Lipase (73-393) U/L TSH, Ultra Sensitive (0.358-3.740) uIU/mL Ketones (NEGATIVE) Meds: Medications Generic Name Dose Route Start Last Admin Trade Name Freq PRN Reason Stop Dose Admin Sodium Chloride 1,000 mls @ 999 mls/hr 03/09/19 22:30 03/09/19 22:29 Normal Saline IV 999 mls/hr ASDIRECTED SUSAN Administration Insulin Human Regular 100 unit 100 mls @ 8 mls/hr 03/09/19 23:30 / Sodium Chloride IV TITRATE SUSAN Protocol 8 UNIT/HR Sodium Chloride 1,000 mls @ 999 mls/hr 03/09/19 23:30 03/09/19 23:24 Normal Saline IV 999 mls/hr ASDIRECTED SUSAN Administration Sodium Chloride 10 ml 03/09/19 22:15 03/09/19 22:20 Saline Flush FLUSH 10 ml ASDIRECTED PRN Administration Keep Vein Open Sodium Chloride 10 ml 03/09/19 22:25 Saline Flush FLUSH ASDIRECTED PRN Keep Vein Open Discontinued Medications Generic Name Dose Route Start Last Admin Trade Name Freq PRN Reason Stop Dose Admin Fentanyl 50 mcg 03/09/19 22:52 03/09/19 23:00 Sublimaze IVPUSH 03/09/19 22:53 50 mcg ONETIME ONE Administration Ondansetron HCl 4 mg 03/09/19 22:22 03/09/19 22:29 Zofran IVPUSH 03/09/19 22:23 4 mg ONETIME ONE Administration Prochlorperazine Edisylate 5 mg 03/09/19 22:46 03/09/19 22:59 Compazine IVPUSH 03/09/19 22:47 5 mg ONETIME ONE Administration Departure - Departure Time of Disposition: 23:39 Disposition: DC/Tfer to [facility]Unit [facility] Condition: Critical Clinical Impression: Diabetic ketoacidosis Qualifiers: Diabetes mellitus type: type 1 Diabetes mellitus complication detail: without coma Qualified Code(s): E10.10 - Type 1 diabetes mellitus with ketoacidosis without coma - Discharge Information Referrals: PCP,None [Primary Care Provider] - Forms: ED Department Discharge Critical Care Note - Critical Care Note Total Time (mins): 30 Sepsis Event Note - Focused Exam Vital Signs: Vital Signs Temp Pulse Resp BP Pulse Ox 03/09/19 23:06 99.0 F 126 H 22 H 143/93 H 98 03/09/19 22:17 99.0 F 127 H 24 H 150/118 H 99 Date Exam was Performed: 03/09/19 Time Exam was Performed: 23:35 - My Orders Last 24 Hours: My Active Orders 03/09/19 22:15 Blood Glucose Check, Bedside [RC] STAT Cardiac Monitoring [RC] CONTINUOUS Communication Order [RC] STAT Communication Order [RC] STAT Oxygen Therapy, ED [RC] PRN Peripheral IV Care [RC] . DIRECTED Chest 1V Frontal [CR] Stat GLYCOSYLATED HEMOGLOBIN,HGBA1C [CHEM] Stat KETONES,URINE [URIN] Stat Sodium Chloride 0.9% [Saline Flush] 10 ml FLUSH ASDIRECTED PRN Blood Culture x2 Reflex Set [OM.PC] Urgent Peripheral IV Insertion Adult [OM.PC] Stat Resuscitation Status Stat 03/09/19 22:20 CULTURE BLOOD [BC] Urgent 03/09/19 22:25 Peripheral IV Care [RC] . DIRECTED Sodium Chloride 0.9% [Saline Flush] 10 ml FLUSH ASDIRECTED PRN Peripheral IV Insertion Adult [OM.PC] Urgent 03/09/19 22:30 Sodium Chloride 0.9% [Normal Saline] 1,000 ml IV ASDIRECTED 03/09/19 22:35 CULTURE BLOOD [BC] Urgent 03/09/19 23:30 Insulin Regular, Human [HumuLIN R] 100 unit Sodium Chloride 0.9% [Normal Saline] 99 ml IV TITRATE Sodium Chloride 0.9% [Normal Saline] 1,000 ml IV ASDIRECTED 03/10/19 00:30 GLUCOSE POC LAB TO COLLECT [POC] Stat - Assessment/Plan Last 24 Hours: My Active Orders 03/09/19 22:15 Blood Glucose Check, Bedside [RC] STAT Cardiac Monitoring [RC] CONTINUOUS Communication Order [RC] STAT Communication Order [RC] STAT Oxygen Therapy, ED [RC] PRN Peripheral IV Care [RC] . DIRECTED Chest 1V Frontal [CR] Stat GLYCOSYLATED HEMOGLOBIN,HGBA1C [CHEM] Stat KETONES,URINE [URIN] Stat Sodium Chloride 0.9% [Saline Flush] 10 ml FLUSH ASDIRECTED PRN Blood Culture x2 Reflex Set [OM.PC] Urgent Peripheral IV Insertion Adult [OM.PC] Stat Resuscitation Status Stat 03/09/19 22:20 CULTURE BLOOD [BC] Urgent 03/09/19 22:25 Peripheral IV Care [RC] . DIRECTED Sodium Chloride 0.9% [Saline Flush] 10 ml FLUSH ASDIRECTED PRN Peripheral IV Insertion Adult [OM.PC] Urgent 03/09/19 22:30 Sodium Chloride 0.9% [Normal Saline] 1,000 ml IV ASDIRECTED 03/09/19 22:35 CULTURE BLOOD [BC] Urgent 03/09/19 23:30 Insulin Regular, Human [HumuLIN R] 100 unit Sodium Chloride 0.9% [Normal Saline] 99 ml IV TITRATE Sodium Chloride 0.9% [Normal Saline] 1,000 ml IV ASDIRECTED 03/10/19 00:30 GLUCOSE POC LAB TO COLLECT [POC] Stat Plan: Assessment Acuity = acute Site and laterality = moderate to severe diabetic ketoacidosis complicating the patient with known history of diabetes mellitus type 1 as well as medical compliance Etiology = has been out of long-acting insulin for the last 3 to 4 days Manifestations = lethargic Location of injury = Home Lab values = WBC elevated 15.0 consistent leukocytosis pH 7.15 with PCO2 12.1 and a bicarb of 4.0 consistent with metabolic acidosis, sodium low at 130 consistent hyponatremia, glucose elevated 363 consistent hyperglycemia, moderate ketones in the serum, chest x-ray shows no acute process official read radiologist pending, influenza a and B both negative Plan Call discussed case with Dr. Massey emergency room physician at [facility] at 2220, he kindly excepted patient in transport will be transported via EMS ground, thus far she has been given 2 L of fluids 4 mg Zofran 5 mg Compazine started on insulin drip at 8 units/h Critical care time 30 minutes This note was dictated using [employer] voice recognition software please call with any questions on syntax or grammar.
[2019-03-09] MEDS ORDERED: Sodium Chloride 0.9% 1,000 ML IV SCH (22:30)
[2019-03-09] MEDS ORDERED: Prochlorperazine 10 MG/2 ML SDV IVPUSH ONE (22:46)
[2019-03-09] MEDS ORDERED: fentaNYL 100 MCG/2 ML SDV IVPUSH ONE (22:52)
[2019-03-09 23:17] VITALS: PULSE 126
[2019-03-09] MEDS: Sodium Chloride 0.9% 1,000 ML IV SCH (23:24)
--- NOTE | 2019-03-09 23:42 | CRLCR ---
INDICATION: Fever TECHNIQUE: Chest 1 views COMPARISON: Chest x-ray 04/29/2017 FINDINGS: Cardiovascular and mediastinum: Heart size and vasculature are normal in caliber and appearance. Lungs and pleural spaces: Lungs are clear. No sign of infiltrate or mass. No sign of pleural effusion. No pneumothorax. Bones and soft tissues: No significant findings. IMPRESSION: No acute findings and no significant changes from the prior exam. Dictated by Matheus Nixon MD @ Mar 09 2019 11:41PM Signed by Dr. Matheus Nixon @ Mar 09 2019 11:42PM
[2019-03-10 00:20] VITALS: BP 133/76
[2019-03-10] MEDS: Sodium Chloride 0.9% 1,000 ML IV SCH (00:34)
[2019-03-10 07:23] LABS: HEMOGLOBIN A1C 11.8 % (4.5-6.2)
== END 2019-03-10 01:05 ==
LOC: JP.ED 21:47
DX: E10.10 Type 1 diabetes mellitus with ketoacidosis without coma (principal); Z88.6 Allergy status to analgesic agent; Z79.4 Long term (current) use of insulin
CPT/HCPCS: 36415; 36600; 71045; 80053; 81001; 81025; 82009; 82150; 82550; 82803; 82962; 83036; 83605; 83690; 83735; 84100; 84443; 85025; 87040; 87804; 87804-59; 96361; 96365; 96375; 99285-25; 99291; 99291-25; J0780; J1815-GY; J2405; J3010; J7030; J7050

== ENCOUNTER 2019-07-02 05:03 | Inpatient (IN) | payer MEDICAID ==
[2019-07-02] MEDS ORDERED: Sodium Chloride 0.9% 10 ML Syringe FLUSH PRN (05:14)
[2019-07-02] MEDS ORDERED: Ondansetron 4 MG/2 ML SDV IVPUSH ONE (05:14)
[2019-07-02] MEDS ORDERED: fentaNYL 100 MCG/2 ML SDV IVPUSH ONE (05:21)
--- NOTE | 2019-07-02 05:24 | EDM.PDOC ---
ED HPI GENERAL MEDICAL PROBLEM - General Chief Complaint: Diabetic Complaint Stated Complaint: VOMITING/BODY ACHES Time Seen by Provider: 07/02/19 05:13 Source of Information: Reports: Patient, RN Notes Reviewed History Limitations: Reports: No Limitations - History of Present Illness INITIAL COMMENTS - FREE TEXT/NARRATIVE: 28-year-old female presents emergency department with a complaint of nausea vomiting generalized abdominal pain, she has a known history of diabetes mellitus type 1 has been out of her medications for the last 5 or 6 days has extensive history of medical compliance and methamphetamine use Generalized Pain Score (Numeric/FACES): 6 - Related Data Allergies Allergy/AdvReac Type Severity Reaction Status Date / Time ibuprofen Allergy Unknown Swelling Verified 07/02/19 05:13 Home Meds: Home Meds Insulin Aspart [Novolog Flexpen] 10 unit SQ ASDIRECTED 03/13/14 [History] Insulin Detemir [Levemir] 50 unit SQ BID 03/13/14 [History] Past Medical History Gastrointestinal History: Reports: Cholelithiasis, Other (See Below) Other Gastrointestinal History: 90# weight loss in past year Musculoskeletal History: Reports: Other (See Below) Other Musculoskeletal History: chronic left knee pain Psychiatric History: Reports: Addiction Endocrine/Metabolic History: Reports: Diabetes, Type I, IDDM Hematologic History: Reports: Anemia Dermatologic History: Reports: Other (See Below) Other Dermatologic History: boils on buttock and abdomin - Infectious Disease History Infectious Disease History: Reports: Chicken Pox - Past Surgical History GI Surgical History: Reports: Cholecystectomy Social & Family History - Family History Family Medical History: Unobtainable - Caffeine Use Caffeine Use: Reports: Coffee - Living Situation & Occupation Living situation: Reports: Single ED ROS GENERAL - Review of Systems Review Of Systems: See Below Constitutional: Reports: Weight Loss HEENT: Reports: No Symptoms Respiratory: Reports: No Symptoms Cardiovascular: Reports: No Symptoms GI/Abdominal: Reports: Abdominal Pain, Nausea, Vomiting : Reports: No Symptoms Musculoskeletal: Reports: Muscle Pain Skin: Reports: No Symptoms ED EXAM GENERAL NO PERIP PULSE - Physical Exam Exam: See Below Exam Limited By: No Limitations General Appearance: Alert, WD/WN, No Apparent Distress Throat/Mouth: No Airway Compromise, Other (Dentition is poor) Respiratory/Chest: No Respiratory Distress, Lungs Clear, Normal Breath Sounds, No Accessory Muscle Use, Chest Non-Tender Cardiovascular: No Murmur, Tachycardia GI/Abdominal: Soft, Non-Tender Extremities: No Pedal Edema Course - Vital Signs Last Recorded V/S: Last Vital Signs Temp 97.8 F 07/02/19 05:24 Pulse 129 H 07/02/19 05:24 Resp 26 H 07/02/19 05:24 BP 149/96 H 07/02/19 05:24 Pulse Ox 99 07/02/19 05:24 - Orders/Labs/Meds Orders: Active Orders 24 hr Category Date Time Status Blood Glucose Check, Bedside [RC] STAT Care 07/02/19 05:14 Inactive Cardiac Monitoring [RC] CONTINUOUS Care 07/02/19 05:14 Active Communication Order [RC] STAT Care 07/02/19 05:14 Active Communication Order [RC] STAT Care 07/02/19 05:14 Active Communication Order [RC] STAT Care 07/02/19 05:55 Active Peripheral IV Care [RC] . DIRECTED Care 07/02/19 05:14 Active CULTURE BLOOD [BC] Urgent Lab 07/02/19 05:30 Received CULTURE BLOOD [BC] Urgent Lab 07/02/19 05:39 Received DRUG SCREEN, URINE [URCHEM] Stat Lab 07/02/19 05:31 Ordered GLUCOSE RANDOM [CHEM] Q1H Lab 07/02/19 06:00 Ordered GLUCOSE RANDOM [CHEM] [facility] Lab 07/02/19 07:00 Ordered GLUCOSE RANDOM [CHEM] [facility] Lab 07/02/19 08:00 Ordered GLUCOSE RANDOM [CHEM] Q1 Lab 07/02/19 09:00 Ordered GLUCOSE RANDOM [CHEM] Q1 Lab 07/02/19 10:00 Ordered POTASSIUM,K [CHEM] Q1 Lab 07/02/19 06:00 Ordered POTASSIUM,K [CHEM] Q1 Lab 07/02/19 07:00 Ordered POTASSIUM,K [CHEM] Q1 Lab 07/02/19 08:00 Ordered POTASSIUM,K [CHEM] Q1 Lab 07/02/19 09:00 Ordered POTASSIUM,K [CHEM] Q1 Lab 07/02/19 10:00 Ordered UA W/MICROSCOPIC [URIN] Stat Lab 07/02/19 05:14 Ordered Insulin Regular in 0.9 % NACL [Myxredlin 100 UNIT/100 Med 07/02/19 05:30 Active ML] 100 ml IV ASDIRECTED Sodium Chloride 0.9% [Normal Saline] 1,000 ml Med 07/02/19 05:30 Active IV ASDIRECTED Sodium Chloride 0.9% [Saline Flush] Med 07/02/19 05:14 Active 10 ml FLUSH ASDIRECTED PRN Blood Culture x2 Reflex Set [OM.PC] Urgent Oth 07/02/19 05:14 Ordered Peripheral IV Insertion Adult [OM.PC] Stat Oth 07/02/19 05:14 Ordered Resuscitation Status Stat Resus Stat 07/02/19 05:14 Ordered Medication Orders Insulin Regular in 0.9 % NACL (Myxredlin 100 Unit/100 Ml) 100 mls @ 11.748 mls/ hr IV ASDIRECTED SUSAN; Protocol Last Admin: 07/02/19 05:49 Dose: 0.14 units/kg/hr, 11.748 mls/hr Sodium Chloride (Normal Saline) 1,000 mls @ 999 mls/hr IV ASDIRECTED SUSAN Last Admin: 07/02/19 05:37 Dose: 999 mls/hr Sodium Chloride (Saline Flush) 10 ml FLUSH ASDIRECTED PRN PRN Reason: Keep Vein Open Last Admin: 07/02/19 05:44 Dose: 10 ml Labs: Laboratory Tests 07/02/19 07/02/19 07/02/19 Range/Units 05:14 05:14 05:21 WBC 16.1 H (4.5-11.0) K/uL RBC 5.93 H (3.30-5.50) M/uL Hgb 16.1 H (12.0-15.0) g/dL Hct 50.0 H (36.0-48.0) % MCV 84 (80-98) fL MCH 27 (27-31) pg MCHC 32 (32-36) % Plt Count 222 (150-400) K/uL Neut % (Auto) 81 H (36-66) % Lymph % (Auto) 15 L (24-44) % [place] % (Auto) 4 (2-6) % Eos % (Auto) 0 L (2-4) % Baso % (Auto) 0 (0-1) % Puncture Site Rt brachial ABG pH 7.078 L* (7.350-7.450) ABG pCO2 7.0 L* (35.0-42.0) mmHg ABG pO2 131.0 H (75.0-100.0) mmHg ABG HCO3 2.0 L (22.0-26.0) mmol/L ABG Total CO2 1.9 L (21.0-25.0) mmol/L ABG O2 Saturation 97.1 (95.0-98.0) % ABG O2 Content 19.9 (15.0-23.0) %vol ABG Base Excess -29.1 mm/L ABG Hemoglobin 14.8 (12.0-16.0) g/dL ABG Oxyhemoglobin 94.9 % ABG Carboxyhemoglobin 0.9 (0.0-1.6) % ABG Methemoglobin 1.4 % Kirill Test Passed O2 Delivery Device Room air Sodium 138 L (140-148) mmol/L Potassium 4.1 (3.6-5.2) mmol/L Chloride 102 (100-108) mmol/L Carbon Dioxide < 5 L (21-32) mmol/L Anion Gap 35.1 H (5.0-14.0) mmol/L BUN 9 (7-18) mg/dL Creatinine 1.0 (0.6-1.0) mg/dL Est Cr Clr Drug Dosing 88.95 mL/min Estimated GFR (MDRD) > 60 (>60) Glucose 319 H (74-106) mg/dL Lactic Acid (0.4-2.0) mmol/L Calcium 8.7 (8.5-10.1) mg/dL Phosphorus 3.2 (2.5-4.9) mg/dL Magnesium 2.0 (1.8-2.4) mg/dL Total Bilirubin 0.5 (0.2-1.0) mg/dL AST 14 L (15-37) U/L ALT 19 (12-78) U/L Alkaline Phosphatase 157 H (46-116) U/L Total Protein 8.5 H (6.4-8.2) g/dL Albumin 4.2 (3.4-5.0) g/dL Globulin 4.3 H (2.3-3.5) g/dL Albumin/Globulin Ratio 1.0 L (1.2-2.2) Ketones (NEGATIVE) 07/02/19 07/02/19 Range/Units 05:21 05:21 WBC (4.5-11.0) K/uL RBC (3.30-5.50) M/uL Hgb (12.0-15.0) g/dL Hct (36.0-48.0) % MCV (80-98) fL MCH (27-31) pg MCHC (32-36) % Plt Count (150-400) K/uL Neut % (Auto) (36-66) % Lymph % (Auto) (24-44) % [place] % (Auto) (2-6) % Eos % (Auto) (2-4) % Baso % (Auto) (0-1) % Puncture Site ABG pH (7.350-7.450) ABG pCO2 (35.0-42.0) mmHg ABG pO2 (75.0-100.0) mmHg ABG HCO3 (22.0-26.0) mmol/L ABG Total CO2 (21.0-25.0) mmol/L ABG O2 Saturation (95.0-98.0) % ABG O2 Content (15.0-23.0) %vol ABG Base Excess mm/L ABG Hemoglobin (12.0-16.0) g/dL ABG Oxyhemoglobin % ABG Carboxyhemoglobin (0.0-1.6) % ABG Methemoglobin % Kirill Test O2 Delivery Device Sodium (140-148) mmol/L Potassium (3.6-5.2) mmol/L Chloride (100-108) mmol/L Carbon Dioxide (21-32) mmol/L Anion Gap (5.0-14.0) mmol/L BUN (7-18) mg/dL Creatinine (0.6-1.0) mg/dL Est Cr Clr Drug Dosing mL/min Estimated GFR (MDRD) (>60) Glucose (74-106) mg/dL Lactic Acid 1.9 (0.4-2.0) mmol/L Calcium (8.5-10.1) mg/dL Phosphorus (2.5-4.9) mg/dL Magnesium (1.8-2.4) mg/dL Total Bilirubin (0.2-1.0) mg/dL AST (15-37) U/L ALT (12-78) U/L Alkaline Phosphatase (46-116) U/L Total Protein (6.4-8.2) g/dL Albumin (3.4-5.0) g/dL Globulin (2.3-3.5) g/dL Albumin/Globulin Ratio (1.2-2.2) Ketones Moderate H (NEGATIVE) Meds: Medications Generic Name Dose Route Start Last Admin Trade Name Dwaineq PRN Reason Stop Dose Admin Insulin Regular in 0.9 % NACL 100 mls @ 11.748 mls/hr 07/02/19 05:30 05:49 Myxredlin 100 Unit/100 Ml IV 0.14 units/kg/hr ASDIRECTED SUSAN 11.748 mls/hr Administration Protocol 0.14 UNITS/KG/HR Sodium Chloride 1,000 mls @ 999 mls/hr 07/02/19 05:30 07/02/19 05:37 Normal Saline IV 999 mls/hr ASDIRECTED SUSAN Administration Sodium Chloride 10 ml 07/02/19 05:14 07/02/19 05:44 Saline Flush FLUSH 10 ml ASDIRECTED PRN Administration Keep Vein Open Discontinued Medications Generic Name Dose Route Start Last Admin Trade Name Dwaineq PRN Reason Stop Dose Admin Fentanyl 50 mcg 07/02/19 05:21 07/02/19 05:40 Sublimaze IVPUSH 07/02/19 05:22 50 mcg ONETIME ONE Administration Ondansetron HCl 4 mg 07/02/19 05:14 07/02/19 05:36 Zofran IVPUSH 07/02/19 05:15 4 mg ONETIME ONE Administration Departure - Departure Time of Disposition: 06:08 Disposition: Admitted As Inpatient 64 Condition: Poor Clinical Impression: High anion gap metabolic acidosis Diabetic ketoacidosis Qualifiers: Diabetes mellitus type: type 1 Diabetes mellitus complication detail: without coma Qualified Code(s): E10.10 - Type 1 diabetes mellitus with ketoacidosis without coma - Discharge Information Referrals: PCP,None [Primary Care Provider] - Forms: ED Department Discharge Critical Care Note - Critical Care Note Total Time (mins): 20 Sepsis Event Note - Focused Exam Vital Signs: Vital Signs Temp Pulse Resp BP Pulse Ox 07/02/19 05:24 97.8 F 129 H 26 H 149/96 H 99 07/02/19 05:06 97.8 F 109 H 16 140/87 99 Date Exam was Performed: 07/02/19 Time Exam was Performed: 06:03 - My Orders Last 24 Hours: My Active Orders 07/02/19 05:14 Blood Glucose Check, Bedside [RC] STAT Cardiac Monitoring [RC] CONTINUOUS Communication Order [RC] STAT Communication Order [RC] STAT Peripheral IV Care [RC] . DIRECTED UA W/MICROSCOPIC [URIN] Stat Sodium Chloride 0.9% [Saline Flush] 10 ml FLUSH ASDIRECTED PRN Blood Culture x2 Reflex Set [OM.PC] Urgent Peripheral IV Insertion Adult [OM.PC] Stat Resuscitation Status Stat 07/02/19 05:30 CULTURE BLOOD [BC] Urgent Insulin Regular in 0.9 % NACL [Myxredlin 100 UNIT/100 ML] 100 ml IV ASDIRECTED Sodium Chloride 0.9% [Normal Saline] 1,000 ml IV ASDIRECTED 07/02/19 05:31 DRUG SCREEN, URINE [URCHEM] Stat 07/02/19 05:39 CULTURE BLOOD [BC] Urgent 07/02/19 05:55 Communication Order [RC] STAT 07/02/19 06:00 GLUCOSE RANDOM [CHEM] Q1H POTASSIUM,K [CHEM] Q1H 07/02/19 07:00 GLUCOSE RANDOM [CHEM] Q1H POTASSIUM,K [CHEM] Q1H 07/02/19 08:00 GLUCOSE RANDOM [CHEM] Q1H POTASSIUM,K [CHEM] Q1H 07/02/19 09:00 GLUCOSE RANDOM [CHEM] Q1H POTASSIUM,K [CHEM] Q1H 07/02/19 10:00 GLUCOSE RANDOM [CHEM] Q1H POTASSIUM,K [CHEM] Q1H - Assessment/Plan Last 24 Hours: My Active Orders 07/02/19 05:14 Blood Glucose Check, Bedside [RC] STAT Cardiac Monitoring [RC] CONTINUOUS Communication Order [RC] STAT Communication Order [RC] STAT Peripheral IV Care [RC] . DIRECTED UA W/MICROSCOPIC [URIN] Stat Sodium Chloride 0.9% [Saline Flush] 10 ml FLUSH ASDIRECTED PRN Blood Culture x2 Reflex Set [OM.PC] Urgent Peripheral IV Insertion Adult [OM.PC] Stat Resuscitation Status Stat 07/02/19 05:30 CULTURE BLOOD [BC] Urgent Insulin Regular in 0.9 % NACL [Myxredlin 100 UNIT/100 ML] 100 ml IV ASDIRECTED Sodium Chloride 0.9% [Normal Saline] 1,000 ml IV ASDIRECTED 07/02/19 05:31 DRUG SCREEN, URINE [URCHEM] Stat 07/02/19 05:39 CULTURE BLOOD [BC] Urgent 07/02/19 05:55 Communication Order [RC] STAT 07/02/19 06:00 GLUCOSE RANDOM [CHEM] Q1H POTASSIUM,K [CHEM] Q1H 07/02/19 07:00 GLUCOSE RANDOM [CHEM] Q1H POTASSIUM,K [CHEM] Q1H 07/02/19 08:00 GLUCOSE RANDOM [CHEM] Q1H POTASSIUM,K [CHEM] Q1H 07/02/19 09:00 GLUCOSE RANDOM [CHEM] Q1H POTASSIUM,K [CHEM] Q1H 07/02/19 10:00 GLUCOSE RANDOM [CHEM] Q1H POTASSIUM,K [CHEM] Q1H Plan: Assessment Acuity = acute Site and laterality = DKA moderate Etiology = secondary to medication compliance Manifestations = none Location of injury = Home Lab values = WBC elevated 16.1 consistent leukocytosis pH 7.8 PCO2 of 7 bicarb of 2 consistent with an anion gap metabolic acidosis glucose 319 moderate ketones in the urine Plan Call discussed case with hospitalist on-call at 6 AM he currently agreed to come to the emergency department and evaluate the patient for admission This note was dictated using [employer] voice recognition software please call with any questions on syntax or grammar.
[2019-07-02] MEDS ORDERED: Insulin Regular in 0.9 % NACL 100 ML IV SCH ×2 (05:30→09:17)
[2019-07-02] MEDS ORDERED: Sodium Chloride 0.9% 1,000 ML IV SCH ×2 (05:30→07:00)
[2019-07-02] MEDS ORDERED: HYDROmorphone 0.5 MG/0.5 ML Syringe IVPUSH ONE (07:24)
--- NOTE | 2019-07-02 07:49 | PCM.HP.2 ---
H&P History of Present Illness - General Date of Service: 07/02/19 Admit Problem/Dx: Admission Diagnosis/Problem Admission Diagnosis/Problem Diabetic ketoacidosis associated with type 1 diabetes mellitus Source of Information: Patient, Provider History Limitations: Reports: No Limitations - History of Present Illness Initial Comments - Free Text/Narative: CC: I am hurting all over HPI: Lori presents to the emergency room with about 48 hours of progressive nausea with vomiting and diffuse myalgias as well as moderate generalized abdominal pain. She reports that she ran out of her insulin about 1 week ago. She says that she tried to make several calls to set up appointments to get more insulin but was unsuccessful. 2 days ago she was feeling ill so she decided to use methamphetamine to try to help with her pain. This did help her pain for a while but unfortunately yesterday morning through this morning her pain has worsened significantly. Her abdominal pain currently is generalized and feels sharp as well as a crampy component. The pain does not radiate outside of the abdomen. She did try the methamphetamine to help with the pain. Nothing obviously makes the pain worse. She has not had anything to eat in the past 24 hours but has been able to get some fluids down. She has not been checking blood sugars. No fevers or chills. She has been constipated for the past week. No dysuria. No skin rashes. Work-up in the emergency room revealed evidence for severe diabetic ketoacidosis with a pH of around 7 and a PCO2 of 7. Kidney function and electrolytes are acceptable. Blood sugar was only 320. Urine drug screen was positive for methamphetamines. She has been started on an insulin drip. She will be admitted for further management of diabetic ketoacidosis. Generalized Pain Score (Numeric/FACES): 6 - Related Data Allergies/Adverse Reactions: Allergies Allergy/AdvReac Type Severity Reaction Status Date / Time ibuprofen Allergy Unknown Swelling Verified 07/02/19 05:13 Home Medications: Home Meds Insulin Aspart [Novolog Flexpen] 15 unit SQ TIDAC 03/13/14 [History] Insulin Detemir [Levemir] 50 unit SQ BID 03/13/14 [History] Past Medical History Gastrointestinal History: Reports: Cholelithiasis, Other (See Below) Other Gastrointestinal History: 90# weight loss in past year Musculoskeletal History: Reports: Other (See Below) Other Musculoskeletal History: chronic left knee pain Psychiatric History: Reports: Addiction Endocrine/Metabolic History: Reports: Diabetes, Type I, IDDM Hematologic History: Reports: Anemia Dermatologic History: Reports: Other (See Below) Other Dermatologic History: boils on buttock and abdomin - Infectious Disease History Infectious Disease History: Reports: Chicken Pox - Past Surgical History GI Surgical History: Reports: Cholecystectomy Social & Family History - Family History Family Medical History: Unobtainable - Tobacco Use Smoking Status *Q: Current Some Day Smoker Years of Tobacco use: 6 Packs/Tins Daily: 0.2 Second Hand Smoke Exposure: Yes - Caffeine Use Caffeine Use: Reports: Coffee - Recreational Drug Use Recreational Drug Use: Yes Recreational Drug Type: Reports: Marijuana/Hashish Recreational Drug Use Frequency: Binges - Living Situation & Occupation Living situation: Reports: Single H&P Review of Systems - Review of Systems: Review Of Systems: See Below Free Text/Narrative: A complete 12 point review of systems was obtained. Pertinent positives and negatives are noted in the history of present illness. All other systems were reviewed and were negative except as noted. Exam - Exam Exam: See Below - Vital Signs Vital Signs: Last Vital Signs Temp 36.6 C 07/02/19 05:24 Pulse 135 H 07/02/19 06:42 Resp 26 H 07/02/19 06:42 BP 157/97 H 07/02/19 06:42 Pulse Ox 100 07/02/19 06:42 Weight: 83.915 kg - Exam Quality Assessment: No: Supplemental Oxygen General: Alert, Oriented, Cooperative, Moderate Distress HEENT: Conjunctiva Clear, Scleral Icterus. No: Mucosa Moist & Lucien (dry) Neck: Supple, Trachea Midline. No: Lymphadenopathy Lungs: Clear to Auscultation. No: Normal Respiratory Effort (Increased work of breathing) Cardiovascular: Regular Rhythm, Tachycardia. No: Systolic Murmur GI/Abdominal Exam: Normal Bowel Sounds, Soft, Non-Tender, No Distention, No Mass Extremities: No Pedal Edema. No: Increased Warmth Peripheral Pulses: 2+: Dorsalis Pedis (L), Dorsalis Pedis (R) Skin: Warm, Dry Neuro Extensive - Mental Status: Alert, Oriented x3, Nl Response to Commands Neuro Extensive - Motor, Sensory, Reflexes: No: Dysarthria, Abnormal Motor, Tremor Psychiatric: Alert, Normal Affect - Patient Data Lab Results Last 24 hrs: Laboratory Results - last 24 hr 07/02/19 07/02/19 07/02/19 Range/Units 05:14 05:14 05:21 WBC 16.1 H (4.5-11.0) K/uL RBC 5.93 H (3.30-5.50) M/uL Hgb 16.1 H (12.0-15.0) g/dL Hct 50.0 H (36.0-48.0) % MCV 84 (80-98) fL MCH 27 (27-31) pg MCHC 32 (32-36) % Plt Count 222 (150-400) K/uL Neut % (Auto) 81 H (36-66) % Lymph % (Auto) 15 L (24-44) % Vernon % (Auto) 4 (2-6) % Eos % (Auto) 0 L (2-4) % Baso % (Auto) 0 (0-1) % Puncture Site Rt brachial ABG pH 7.078 L* (7.350-7.450) ABG pCO2 7.0 L* (35.0-42.0) mmHg ABG pO2 131.0 H (75.0-100.0) mmHg ABG HCO3 2.0 L (22.0-26.0) mmol/L ABG Total CO2 1.9 L (21.0-25.0) mmol/L ABG O2 Saturation 97.1 (95.0-98.0) % ABG O2 Content 19.9 (15.0-23.0) %vol ABG Base Excess -29.1 mm/L ABG Hemoglobin 14.8 (12.0-16.0) g/dL ABG Oxyhemoglobin 94.9 % ABG Carboxyhemoglobin 0.9 (0.0-1.6) % ABG Methemoglobin 1.4 % Kirill Test Passed O2 Delivery Device Room air Sodium 138 L (140-148) mmol/L Potassium 4.1 (3.6-5.2) mmol/L Chloride 102 (100-108) mmol/L Carbon Dioxide < 5 L (21-32) mmol/L Anion Gap 35.1 H (5.0-14.0) mmol/L BUN 9 (7-18) mg/dL Creatinine 1.0 (0.6-1.0) mg/dL Est Cr Clr Drug Dosing 88.95 mL/min Estimated GFR (MDRD) > 60 (>60) Glucose 319 H (74-106) mg/dL Lactic Acid (0.4-2.0) mmol/L Calcium 8.7 (8.5-10.1) mg/dL Phosphorus 3.2 (2.5-4.9) mg/dL Magnesium 2.0 (1.8-2.4) mg/dL Total Bilirubin 0.5 (0.2-1.0) mg/dL AST 14 L (15-37) U/L ALT 19 (12-78) U/L Alkaline Phosphatase 157 H (46-116) U/L Total Protein 8.5 H (6.4-8.2) g/dL Albumin 4.2 (3.4-5.0) g/dL Globulin 4.3 H (2.3-3.5) g/dL Albumin/Globulin Ratio 1.0 L (1.2-2.2) Urine Color (YELLOW) Urine Appearance (CLEAR) Urine pH (5.0-8.0) Ur Specific [place] (1.008-1.030) Urine Protein (NEGATIVE) mg/dL Urine Glucose (UA) (NEGATIVE) mg/dL Urine Ketones (NEGATIVE) mg/dL Urine Occult Blood (NEGATIVE) Urine Nitrite (NEGATIVE) Urine Bilirubin (NEGATIVE) Urine Urobilinogen (0.2-1.0) EU/dL Ur Leukocyte Esterase (NEGATIVE) Urine RBC (0-5) Urine WBC (0-5) Ur Epithelial Cells Amorphous Sediment Urine Bacteria Urine Mucus Urine Opiates Screen (NEGATIVE) Ur Oxycodone Screen (NEGATIVE) Urine Methadone Screen (NEGATIVE) Ur Propoxyphene Screen (NEGATIVE) Ur Barbiturates Screen (NEGATIVE) Ur Tricyclics Screen (NEGATIVE) Ur Phencyclidine Scrn (NEGATIVE) Ur Amphetamine Screen (NEGATIVE) U Methamphetamines Scrn (NEGATIVE) Urine MDMA Screen (NEGATIVE) U Benzodiazepines Scrn (NEGATIVE) U Cocaine Metab Screen (NEGATIVE) U Marijuana (THC) Screen (NEGATIVE) Ketones (NEGATIVE) 07/02/19 07/02/19 07/02/19 Range/Units 05:21 05:21 05:31 WBC (4.5-11.0) K/uL RBC (3.30-5.50) M/uL Hgb (12.0-15.0) g/dL Hct (36.0-48.0) % MCV (80-98) fL MCH (27-31) pg MCHC (32-36) % Plt Count (150-400) K/uL Neut % (Auto) (36-66) % Lymph % (Auto) (24-44) % Vernon % (Auto) (2-6) % Eos % (Auto) (2-4) % Baso % (Auto) (0-1) % Puncture Site ABG pH (7.350-7.450) ABG pCO2 (35.0-42.0) mmHg ABG pO2 (75.0-100.0) mmHg ABG HCO3 (22.0-26.0) mmol/L ABG Total CO2 (21.0-25.0) mmol/L ABG O2 Saturation (95.0-98.0) % ABG O2 Content (15.0-23.0) %vol ABG Base Excess mm/L ABG Hemoglobin (12.0-16.0) g/dL ABG Oxyhemoglobin % ABG Carboxyhemoglobin (0.0-1.6) % ABG Methemoglobin % Kirill Test O2 Delivery Device Sodium (140-148) mmol/L Potassium (3.6-5.2) mmol/L Chloride (100-108) mmol/L Carbon Dioxide (21-32) mmol/L Anion Gap (5.0-14.0) mmol/L BUN (7-18) mg/dL Creatinine (0.6-1.0) mg/dL Est Cr Clr Drug Dosing mL/min Estimated GFR (MDRD) (>60) Glucose (74-106) mg/dL Lactic Acid 1.9 (0.4-2.0) mmol/L Calcium (8.5-10.1) mg/dL Phosphorus (2.5-4.9) mg/dL Magnesium (1.8-2.4) mg/dL Total Bilirubin (0.2-1.0) mg/dL AST (15-37) U/L ALT (12-78) U/L Alkaline Phosphatase (46-116) U/L Total Protein (6.4-8.2) g/dL Albumin (3.4-5.0) g/dL Globulin (2.3-3.5) g/dL Albumin/Globulin Ratio (1.2-2.2) Urine Color (YELLOW) Urine Appearance (CLEAR) Urine pH (5.0-8.0) Ur Specific [place] (1.008-1.030) Urine Protein (NEGATIVE) mg/dL Urine Glucose (UA) (NEGATIVE) mg/dL Urine Ketones (NEGATIVE) mg/dL Urine Occult Blood (NEGATIVE) Urine Nitrite (NEGATIVE) Urine Bilirubin (NEGATIVE) Urine Urobilinogen (0.2-1.0) EU/dL Ur Leukocyte Esterase (NEGATIVE) Urine RBC (0-5) Urine WBC (0-5) Ur Epithelial Cells Amorphous Sediment Urine Bacteria Urine Mucus Urine Opiates Screen Negative (NEGATIVE) Ur Oxycodone Screen Negative (NEGATIVE) Urine Methadone Screen Negative (NEGATIVE) Ur Propoxyphene Screen Negative (NEGATIVE) Ur Barbiturates Screen Negative (NEGATIVE) Ur Tricyclics Screen Negative (NEGATIVE) Ur Phencyclidine Scrn Negative (NEGATIVE) Ur Amphetamine Screen Negative (NEGATIVE) U Methamphetamines Scrn Presumptive positive H (NEGATIVE) Urine MDMA Screen Negative (NEGATIVE) U Benzodiazepines Scrn Negative (NEGATIVE) U Cocaine Metab Screen Negative (NEGATIVE) U Marijuana (THC) Screen Negative (NEGATIVE) Ketones Moderate H (NEGATIVE) 07/02/19 07/02/19 Range/Units 06:00 06:31 WBC (4.5-11.0) K/uL RBC (3.30-5.50) M/uL Hgb (12.0-15.0) g/dL Hct (36.0-48.0) % MCV (80-98) fL MCH (27-31) pg MCHC (32-36) % Plt Count (150-400) K/uL Neut % (Auto) (36-66) % Lymph % (Auto) (24-44) % Vernon % (Auto) (2-6) % Eos % (Auto) (2-4) % Baso % (Auto) (0-1) % Puncture Site ABG pH (7.350-7.450) ABG pCO2 (35.0-42.0) mmHg ABG pO2 (75.0-100.0) mmHg ABG HCO3 (22.0-26.0) mmol/L ABG Total CO2 (21.0-25.0) mmol/L ABG O2 Saturation (95.0-98.0) % ABG O2 Content (15.0-23.0) %vol ABG Base Excess mm/L ABG Hemoglobin (12.0-16.0) g/dL ABG Oxyhemoglobin % ABG Carboxyhemoglobin (0.0-1.6) % ABG Methemoglobin % Kirill Test O2 Delivery Device Sodium (140-148) mmol/L Potassium 4.4 (3.6-5.2) mmol/L Chloride (100-108) mmol/L Carbon Dioxide (21-32) mmol/L Anion Gap (5.0-14.0) mmol/L BUN (7-18) mg/dL Creatinine (0.6-1.0) mg/dL Est Cr Clr Drug Dosing mL/min Estimated GFR (MDRD) (>60) Glucose 304 H (74-106) mg/dL Lactic Acid (0.4-2.0) mmol/L Calcium (8.5-10.1) mg/dL Phosphorus (2.5-4.9) mg/dL Magnesium (1.8-2.4) mg/dL Total Bilirubin (0.2-1.0) mg/dL AST (15-37) U/L ALT (12-78) U/L Alkaline Phosphatase (46-116) U/L Total Protein (6.4-8.2) g/dL Albumin (3.4-5.0) g/dL Globulin (2.3-3.5) g/dL Albumin/Globulin Ratio (1.2-2.2) Urine Color Yellow (YELLOW) Urine Appearance Clear (CLEAR) Urine pH 5.5 (5.0-8.0) Ur Specific [place] >= 1.030 (1.008-1.030) Urine Protein 100 H (NEGATIVE) mg/dL Urine Glucose (UA) 100 H (NEGATIVE) mg/dL Urine Ketones >=160 H (NEGATIVE) mg/dL Urine Occult Blood Small H (NEGATIVE) Urine Nitrite Negative (NEGATIVE) Urine Bilirubin Moderate H (NEGATIVE) Urine Urobilinogen 0.2 (0.2-1.0) EU/dL Ur Leukocyte Esterase Negative (NEGATIVE) Urine RBC 0-5 (0-5) Urine WBC 0-5 (0-5) Ur Epithelial Cells Few Amorphous Sediment Many Urine Bacteria Not seen Urine Mucus Not seen Urine Opiates Screen (NEGATIVE) Ur Oxycodone Screen (NEGATIVE) Urine Methadone Screen (NEGATIVE) Ur Propoxyphene Screen (NEGATIVE) Ur Barbiturates Screen (NEGATIVE) Ur Tricyclics Screen (NEGATIVE) Ur Phencyclidine Scrn (NEGATIVE) Ur Amphetamine Screen (NEGATIVE) U Methamphetamines Scrn (NEGATIVE) Urine MDMA Screen (NEGATIVE) U Benzodiazepines Scrn (NEGATIVE) U Cocaine Metab Screen (NEGATIVE) U Marijuana (THC) Screen (NEGATIVE) Ketones (NEGATIVE) Result Diagrams: 07/02/19 05:14 07/02/19 06:00 Sepsis Event Note - Evaluation Sepsis Screening Result: No Definite Risk - Focused Exam Vital Signs: Vital Signs Temp Pulse Resp BP Pulse Ox 07/02/19 06:42 135 H 26 H 157/97 H 100 07/02/19 05:45 129 H 27 H 149/96 H 99 07/02/19 05:24 36.6 C 129 H 26 H 149/96 H 99 07/02/19 05:06 36.6 C 109 H 16 140/87 99 Date Exam was Performed: 07/02/19 Time Exam was Performed: 07:41 *Q Meaningful Use (ADM) - VTE Risk Assess *Q Each Risk Factor Represents 1 Point: None Total Score 1 Point Risk Factors: 0 Each Risk Factor Represents 2 Points: None Total Score 2 Point Risk Factors: 0 Each Risk Factor Represents 3 Points: None Total Score 3 Point Risk Factors: 0 Each Risk Factor Represents 5 Points: None Total Score 5 Point Risk Factors: 0 Venous Thromboembolism Risk Factor Score *Q: 0 - Problem List (1) Diabetic ketoacidosis SNOMED Code(s): 642850204, 660575634 ICD Code: E13.10 - OTH DIABETES MELLITUS WITH KETOACIDOSIS WITHOUT COMA Status: Acute Current Visit: Yes Qualifiers: Diabetes mellitus type: type 1 Diabetes mellitus complication detail: without coma Qualified Code(s): E10.10 - Type 1 diabetes mellitus with ketoacidosis without coma (2) High anion gap metabolic acidosis SNOMED Code(s): 55921431 ICD Code: E87.2 - ACIDOSIS Status: Acute Current Visit: Yes (3) Methamphetamine abuse SNOMED Code(s): 428943861 ICD Code: F15.10 - OTHER STIMULANT ABUSE, UNCOMPLICATED Status: Chronic Current Visit: No Problem List Initiated/Reviewed/Updated: Yes Orders Last 24hrs: Active Orders 24 hr Category Date Time Status Patient Status Manage Transfer [TRANSFER] Routine ADT 07/02/19 07:26 Active Blood Glucose Check, Bedside [RC] STAT Care 07/02/19 05:14 Inactive Cardiac Monitoring [RC] CONTINUOUS Care 07/02/19 05:14 Active Communication Order [RC] STAT Care 07/02/19 05:14 Active Communication Order [RC] STAT Care 07/02/19 05:14 Active Communication Order [RC] STAT Care 07/02/19 05:55 Active Peripheral IV Care [RC] . DIRECTED Care 07/02/19 05:14 Active BASIC METABOLIC PANEL,BMP [CHEM] Q4H Lab 07/02/19 10:00 Ordered BASIC METABOLIC PANEL,BMP [CHEM] Q4H Lab 07/02/19 14:00 Ordered BASIC METABOLIC PANEL,BMP [CHEM] Q4H Lab 07/02/19 18:00 Ordered BASIC METABOLIC PANEL,BMP [CHEM] Q4H Lab 07/02/19 22:00 Ordered CULTURE BLOOD [BC] Urgent Lab 07/02/19 05:30 Received CULTURE BLOOD [BC] Urgent Lab 07/02/19 05:39 Received GLUCOSE RANDOM [CHEM] Q1H Lab 07/02/19 07:00 Ordered GLUCOSE RANDOM [CHEM] Q1H Lab 07/02/19 08:00 Ordered GLUCOSE RANDOM [CHEM] Q1H Lab 07/02/19 09:00 Ordered POTASSIUM,K [CHEM] Q1H Lab 07/02/19 07:00 Ordered POTASSIUM,K [CHEM] Q1H Lab 07/02/19 08:00 Ordered POTASSIUM,K [CHEM] Q1H Lab 07/02/19 09:00 Ordered Insulin Regular in 0.9 % NACL [Myxredlin 100 UNIT/100 Med 07/02/19 05:30 Active ML] 100 ml IV ASDIRECTED Sodium Chloride 0.9% [Normal Saline] 1,000 ml Med 07/02/19 05:30 Active IV ASDIRECTED Sodium Chloride 0.9% [Normal Saline] 1,000 ml Med 07/02/19 07:00 Active IV ASDIRECTED Sodium Chloride 0.9% [Saline Flush] Med 07/02/19 05:14 Active 10 ml FLUSH ASDIRECTED PRN Blood Culture x2 Reflex Set [OM.PC] Urgent Oth 07/02/19 05:14 Ordered Peripheral IV Insertion Adult [OM.PC] Stat Oth 07/02/19 05:14 Ordered Resuscitation Status Stat Resus Stat 07/02/19 05:14 Ordered Medication Orders Insulin Regular in 0.9 % NACL (Myxredlin 100 Unit/100 Ml) 100 mls @ 11.748 mls/ hr IV ASDIRECTED SUSAN; Protocol Last Admin: 07/02/19 05:49 Dose: 0.14 units/kg/hr, 11.748 mls/hr Sodium Chloride (Normal Saline) 1,000 mls @ 999 mls/hr IV ASDIRECTED SUSAN Last Admin: 07/02/19 05:37 Dose: 999 mls/hr Sodium Chloride (Normal Saline) 1,000 mls @ 999 mls/hr IV ASDIRECTED SUSAN Sodium Chloride (Saline Flush) 10 ml FLUSH ASDIRECTED PRN PRN Reason: Keep Vein Open Last Admin: 07/02/19 05:44 Dose: 10 ml Assessment/Plan Comment:: ASSESSMENT AND PLAN - Diabetic ketoacidosis-pH of 7 and bicarb of only 7. Secondary to lack of insulin and complicated by methamphetamine abuse. She is very tachycardic and volume depleted at this time. Blood sugar is not very high at around 300. -Insulin drip -IV fluids, anticipate transition to dextrose containing fluids in the next 1 to 2 hours -Every hour Accu-Cheks -BMP every 4 hours -Hemoglobin A1c in the morning -Diabetic education -Transition to long-acting insulin once anion gap normalizes Anion gap metabolic acidosis-secondary to DKA. No evidence for kidney failure at this time. -Management as above Methamphetamine abuse-patient reports using the methamphetamine to help with her abdominal pain and myalgias. She does not believe that she has a problem. She does not report regular use of methamphetamines but her very poor dentition would suggest otherwise. There will need to be more discussions with her about her methamphetamine use when she is feeling better after diabetic ketoacidosis has resolved. -Offer cessation resources Maintenance issues - - DVT prophylaxis -mechanical - GI prophylaxis -PPI - Nutrition -clear liquids - Frausto catheter -not indicated CODE STATUS -full code Admission justification -this patient will be admitted for inpatient services and is medically appropriate meeting medical necessity for inpatient admission as outlined in my documentation. I reasonably expect the patient will require inpatient services that span a period time over 2 midnights. I reasonably expect this patient to be discharged or transferred within 96 hours [facility]. Disposition -I would anticipate discharge to home after the hospital stay Primary care physician -none Lazaro Rudolph M.D. - Mortality Measure Prognosis:: Good
[2019-07-02] MEDS ORDERED: NS + KCl 20mEq/L 1,000 ML IV SCH (09:17)
[2019-07-02] MEDS ORDERED: Ondansetron 4 MG Tab.DIS PO PRN (09:17)
[2019-07-02] MEDS ORDERED: HYDROmorphone 1 MG/ML Syringe IVPUSH PRN (09:17)
[2019-07-02] MEDS ORDERED: Magnesium Hydroxide 400 MG/5 ML Susp 30 ML Cup PO PRN (09:17)
[2019-07-02] MEDS: LORazepam 2 MG/ML SDV IVPUSH PRN ×3 (09:34→21:12)
[2019-07-02] MEDS: Dextrose 5%-0.9% NaCl with KCl 1,000 ML IV SCH ×2 (09:53→17:34)
[2019-07-02] MEDS: Ondansetron 4 MG/2 ML SDV IV PRN ×2 (11:44→17:33)
[2019-07-02] MEDS ORDERED: Potassium Chloride 20 MEQ Tab.ER PO ONE (12:00)
[2019-07-02] MEDS: Pantoprazole 40 MG Tab.CR PO SCH (14:28)
[2019-07-02] MEDS: Potassium Chloride 20 MEQ, Lidocaine 1% 2 ML in Sodium Chloride 0.9% 100 ML IV SCH ×2 (15:59→18:05)
[2019-07-02] MEDS: oxyCODONE 5 MG Tab PO PRN (21:12)
[2019-07-02] MEDS: Melatonin 3 MG Tab PO SCH (21:21)
[2019-07-02] MEDS: Potassium Chloride 20 MEQ in Premix Bag 1 BAG IV SCH (23:15)
[2019-07-03] MEDS: Potassium Chloride 20 MEQ in Premix Bag 1 BAG IV SCH (01:15)
[2019-07-03] MEDS: Dextrose 5%-0.9% NaCl with KCl 1,000 ML IV SCH (01:50)
[2019-07-03 03:16] LABS: HEMOGLOBIN A1C 13.2 % (4.5-6.2)
[2019-07-03] MEDS: oxyCODONE 5 MG Tab PO PRN ×2 (06:05→19:33)
[2019-07-03] MEDS: Pantoprazole 40 MG Tab.CR PO SCH (07:05)
[2019-07-03] MEDS: Insulin Glargine,Human Rec. Analog 100 Units/ML 3 ML Pen SUBCUT SCH ×2 (09:59→21:17)
[2019-07-03] MEDS: Potassium Chloride 20 MEQ, Lidocaine 1% 2 ML in Sodium Chloride 0.9% 100 ML IV SCH ×2 (10:08→12:38)
[2019-07-03] MEDS: Insulin Lispro 100 Unit/ML 3 ML KwikPen SUBCUT SCH ×4 (11:39→21:17)
[2019-07-03] MEDS: Acetaminophen 325 MG Tab PO PRN (12:22)
--- NOTE | 2019-07-03 13:40 | PCM.PN ---
- General Info Date of Service: 07/03/19 Subjective Update: There were no acute events overnight. No significant nausea or abdominal pain this morning. She did have some heartburn after eating. Overnight her anion gap slowly decreased and finally normalized this morning. Blood sugars have been stable around 200. She feels tired but otherwise feels better. Kidney function has been stable. Tachycardia has improved. Potassium remains mildly low but has been improving with supplementation. Functional Status: Reports: Pain Controlled, Tolerating Diet - Review of Systems General: Denies: Fever - Patient Data Vitals - Most Recent: Last Vital Signs Temp 36.4 C 07/03/19 12:00 Pulse 101 H 07/03/19 12:00 Resp 20 07/03/19 12:00 BP 139/93 H 07/03/19 12:00 Pulse Ox 100 07/03/19 12:53 Weight - Most Recent: 92.986 kg I&O - Last 24 Hours: Intake & Output 07/02/19 07/03/19 07/03/19 22:59 06:59 14:59 Intake Total 2563 1700 1224 Output Total 1900 700 Balance 663 1700 524 Lab Results Last 24 Hours: Laboratory Results - last 24 hr 07/02/19 07/02/19 07/02/19 Range/Units 14:00 18:08 22:00 WBC (4.5-11.0) K/uL RBC (3.30-5.50) M/uL Hgb (12.0-15.0) g/dL Hct (36.0-48.0) % MCV (80-98) fL MCH (27-31) pg MCHC (32-36) % Plt Count (150-400) K/uL Sodium 138 L 144 141 (140-148) mmol/L Potassium 3.6 3.7 3.3 L (3.6-5.2) mmol/L Chloride 110 H 113 H 111 H (100-108) mmol/L Carbon Dioxide 7 L 10 L 14 L (21-32) mmol/L Anion Gap 24.6 H 24.7 H 19.3 H (5.0-14.0) mmol/L BUN 7 7 4 L (7-18) mg/dL Creatinine 0.8 0.8 0.7 (0.6-1.0) mg/dL Est Cr Clr Drug Dosing 111.19 111.19 127.08 mL/min Estimated GFR (MDRD) > 60 > 60 > 60 (>60) Glucose 210 H 246 H 204 H (74-106) mg/dL Hemoglobin A1c (4.5-6.2) % Calcium 7.6 L 7.6 L 7.6 L (8.5-10.1) mg/dL Total Bilirubin (0.2-1.0) mg/dL AST (15-37) U/L ALT (12-78) U/L Alkaline Phosphatase (46-116) U/L Total Protein (6.4-8.2) g/dL Albumin (3.4-5.0) g/dL Globulin (2.3-3.5) g/dL Albumin/Globulin Ratio (1.2-2.2) 07/03/19 07/03/19 07/03/19 Range/Units 02:00 05:11 06:04 WBC 7.3 (4.5-11.0) K/uL RBC 4.33 (3.30-5.50) M/uL Hgb 11.6 L D (12.0-15.0) g/dL Hct 36.1 (36.0-48.0) % MCV 83 (80-98) fL MCH 27 (27-31) pg MCHC 32 (32-36) % Plt Count 229 (150-400) K/uL Sodium 138 L (140-148) mmol/L Potassium 3.6 (3.6-5.2) mmol/L Chloride 108 (100-108) mmol/L Carbon Dioxide 17 L (21-32) mmol/L Anion Gap 16.6 H (5.0-14.0) mmol/L BUN 4 L (7-18) mg/dL Creatinine 0.7 (0.6-1.0) mg/dL Est Cr Clr Drug Dosing 127.08 mL/min Estimated GFR (MDRD) > 60 (>60) Glucose 192 H (74-106) mg/dL Hemoglobin A1c 13.2 H (4.5-6.2) % Calcium 7.5 L (8.5-10.1) mg/dL Total Bilirubin (0.2-1.0) mg/dL AST (15-37) U/L ALT (12-78) U/L Alkaline Phosphatase (46-116) U/L Total Protein (6.4-8.2) g/dL Albumin (3.4-5.0) g/dL Globulin (2.3-3.5) g/dL Albumin/Globulin Ratio (1.2-2.2) 07/03/19 Range/Units 06:04 WBC (4.5-11.0) K/uL RBC (3.30-5.50) M/uL Hgb (12.0-15.0) g/dL Hct (36.0-48.0) % MCV (80-98) fL MCH (27-31) pg MCHC (32-36) % Plt Count (150-400) K/uL Sodium 138 L (140-148) mmol/L Potassium 3.3 L (3.6-5.2) mmol/L Chloride 108 (100-108) mmol/L Carbon Dioxide 20 L (21-32) mmol/L Anion Gap 13.3 (5.0-14.0) mmol/L BUN 3 L (7-18) mg/dL Creatinine 0.6 (0.6-1.0) mg/dL Est Cr Clr Drug Dosing 148.26 mL/min Estimated GFR (MDRD) > 60 (>60) Glucose 185 H (74-106) mg/dL Hemoglobin A1c (4.5-6.2) % Calcium 7.7 L (8.5-10.1) mg/dL Total Bilirubin 0.4 (0.2-1.0) mg/dL AST 13 L (15-37) U/L ALT 14 (12-78) U/L Alkaline Phosphatase 98 (46-116) U/L Total Protein 5.5 L (6.4-8.2) g/dL Albumin 2.6 L (3.4-5.0) g/dL Globulin 2.9 (2.3-3.5) g/dL Albumin/Globulin Ratio 0.9 L (1.2-2.2) Ramses Results Last 24 Hours: Microbiology 07/02/19 05:39 Aerobic Blood Culture - Preliminary Blood - Venous - Lab Draw NO GROWTH AFTER 1 DAY Anaerobic Blood Culture - Preliminary NO GROWTH AFTER 1 DAY 07/02/19 05:30 Aerobic Blood Culture - Preliminary Blood - Venous NO GROWTH AFTER 1 DAY Anaerobic Blood Culture - Preliminary NO GROWTH AFTER 1 DAY Med Orders - Current: Current Medications Acetaminophen (Tylenol) 650 mg PO Q4H PRN PRN Reason: Pain (Mild 1-3)/fever Last Admin: 07/03/19 12:22 Dose: 650 mg Potassium Chloride 20 meq/Lidocaine HCl 2 ml/ Sodium Chloride 112 mls @ 56 mls/ hr IV Q2H [facility] Stop: 07/03/19 13:59 Last Admin: 07/03/19 12:38 Dose: 56 mls/hr Insulin Glargine (Lantus Solostar) 50 units SUBCUT BID [facility] Last Admin: 07/03/19 09:59 Dose: 50 units Insulin Human Lispro (Humalog) 0 unit SUBCUT QIDACANDBED [facility]; Protocol Last Admin: 07/03/19 11:39 Dose: 6 units Lorazepam (Ativan) 0.5 mg IVPUSH Q4H PRN PRN Reason: Nausea/Vomiting Last Admin: 07/02/19 21:12 Dose: 0.5 mg Magnesium Hydroxide (Milk Of Magnesia) 30 ml PO Q12H PRN PRN Reason: Constipation Melatonin (Melatonin) 9 mg PO BEDTIME [facility] Last Admin: 07/02/19 21:21 Dose: 9 mg Ondansetron HCl (Zofran Odt) 4 mg PO Q6H PRN PRN Reason: Nausea able to take PO Ondansetron HCl (Zofran) 4 mg IV Q6H PRN PRN Reason: Nausea/Vomiting Last Admin: 07/02/19 17:33 Dose: 4 mg Oxycodone HCl (Oxycodone) 5 mg PO Q4H PRN PRN Reason: Pain (moderate 4-6) Last Admin: 07/03/19 06:05 Dose: 5 mg Pantoprazole Sodium (Protonix) 40 mg PO ACBREAKFAST [facility] Last Admin: 07/03/19 07:05 Dose: 40 mg Senna/Docusate Sodium (Senna Plus) 1 tab PO BID PRN PRN Reason: Constipation Sodium Chloride (Saline Flush) 10 ml FLUSH ASDIRECTED PRN PRN Reason: Keep Vein Open Last Admin: 07/02/19 05:44 Dose: 10 ml Discontinued Medications Fentanyl (Sublimaze) 50 mcg IVPUSH ONETIME ONE Stop: 07/02/19 05:22 Last Admin: 07/02/19 05:40 Dose: 50 mcg Hydromorphone HCl (Dilaudid) 0.5 mg IVPUSH ONETIME ONE Stop: 07/02/19 07:25 Last Admin: 07/02/19 10:38 Dose: Not Given Hydromorphone HCl (Dilaudid) 0.5 mg IVPUSH Q2H PRN PRN Reason: Pain (severe 7-10) Last Admin: 07/02/19 09:34 Dose: 0.5 mg Insulin Regular in 0.9 % NACL (Myxredlin 100 Unit/100 Ml) 100 mls @ 11.748 mls/ hr IV ASDIRECTED [facility]; Protocol Last Infusion: 07/02/19 21:59 Dose: 0.02 units/kg/hr, 2 mls/hr Sodium Chloride (Normal Saline) 1,000 mls @ 999 mls/hr IV ASDIRECTED [facility] Last Admin: 07/02/19 05:37 Dose: 999 mls/hr Sodium Chloride (Normal Saline) 1,000 mls @ 999 mls/hr IV ASDIRECTED [facility] Last Admin: 07/02/19 08:22 Dose: 999 mls/hr Insulin Regular in 0.9 % NACL (Myxredlin 100 Unit/100 Ml) 100 mls @ 8.392 mls/ hr IV ASDIRECTED [facility]; Protocol Last Infusion: 07/03/19 08:21 Dose: 0.02 units/kg/hr, 2 mls/hr Potassium Chloride/Sodium Chloride (Normal Saline With 20 Meq Kcl) 1,000 mls @ 125 mls/hr IV ASDIRECTED [facility] Potassium Chloride/Dextrose/Sod Cl (D5 Ns With 20 Meq Kcl) 1,000 mls @ 125 mls/ hr IV ASDIRECTED [facility] Last Admin: 07/03/19 01:50 Dose: 125 mls/hr Potassium Chloride 20 meq/Lidocaine HCl 2 ml/ Sodium Chloride 112 mls @ 56 mls/ hr IV Q2H [facility] Stop: 07/02/19 19:59 Last Admin: 07/02/19 18:05 Dose: 56 mls/hr Potassium Chloride 20 meq/ (Premix) 100 mls @ 50 mls/hr IV Q2H [facility] Stop: 07/03/19 02:59 Last Admin: 07/03/19 01:15 Dose: 50 mls/hr Lidocaine HCl (Xylocaine-Mpf 1%) 5 ml INJECT ONETIME ONE Stop: 07/02/19 22:43 Last Admin: 07/02/19 23:15 Dose: 5 ml Ondansetron HCl (Zofran) 4 mg IVPUSH ONETIME ONE Stop: 07/02/19 05:15 Last Admin: 07/02/19 05:36 Dose: 4 mg Potassium Chloride (Klor-Con M20) 40 meq PO ONETIME ONE Stop: 07/02/19 12:01 Last Admin: 07/02/19 14:28 Dose: Not Given - Exam Quality Assessment: No: Supplemental Oxygen General: Alert, Oriented, Cooperative, No Acute Distress HEENT: Pupils Equal Lungs: Normal Respiratory Effort Cardiovascular: Regular Rhythm, Tachycardia GI/Abdominal Exam: Soft, No Distention Extremities: No Pedal Edema Psy/Mental Status: Alert, Normal Affect Sepsis Event Note - Evaluation Sepsis Screening Result: No Definite Risk - Focused Exam Vital Signs: Vital Signs Temp Pulse Resp BP Pulse Ox 07/03/19 12:53 100 07/03/19 12:00 36.4 C 101 H 20 139/93 H 100 07/03/19 10:00 101 H 17 98 07/03/19 09:17 99 07/03/19 08:40 37.0 C 97 17 113/56 L 98 07/03/19 08:00 36.7 C 99 16 113/71 99 07/03/19 07:00 36.9 C 96 17 113/71 98 07/03/19 06:00 16 110/72 98 07/03/19 05:00 16 119/68 99 07/03/19 04:00 36.3 C 17 110/71 99 07/03/19 03:00 17 129/83 98 07/03/19 02:00 14 113/73 99 Date Exam was Performed: 07/03/19 Time Exam was Performed: 13:59 - Problem List & Annotations (1) Diabetic ketoacidosis SNOMED Code(s): 363068898, 917166055 Code(s): E13.10 - OTH DIABETES MELLITUS WITH KETOACIDOSIS WITHOUT COMA Status: Acute Current Visit: Yes Qualifiers: Diabetes mellitus type: type 1 Diabetes mellitus complication detail: without coma Qualified Code(s): E10.10 - Type 1 diabetes mellitus with ketoacidosis without coma (2) High anion gap metabolic acidosis SNOMED Code(s): 93326928 Code(s): E87.2 - ACIDOSIS Status: Acute Current Visit: Yes (3) Methamphetamine abuse SNOMED Code(s): 017086044 Code(s): F15.10 - OTHER STIMULANT ABUSE, UNCOMPLICATED Status: Chronic Current Visit: No - Problem List Review Problem List Initiated/Reviewed/Updated: Yes - My Orders Last 24 Hours: My Active Orders 07/02/19 21:00 Melatonin 9 mg PO BEDTIME 07/03/19 08:38 Blood Glucose Check, Bedside [RC] QIDACANDBED Communication Order [RC] PRN Communication Order [RC] PRN 07/03/19 08:39 Convert IV to Saline Lock [OM.PC] Routine 07/03/19 09:00 Insulin Glarg,Human.Rec.Analog [LantUS Solostar] 50 units SUBCUT BID 07/03/19 10:00 Potassium Chloride 20 meq Lidocaine 1% [Xylocaine 1%] 2 ml Sodium Chloride 0.9 % [Normal Saline] 100 ml IV Q2H 07/03/19 11:00 Insulin Lispro [HumaLOG] See Protocol SUBCUT QIDACANDBED 07/03/19 13:39 Communication Order [RC] PRN Communication Order [RC] PRN 07/03/19 17:00 Insulin Lispro [HumaLOG] 10 unit SUBCUT TIDMEALS 07/03/19 Breakfast Consistent Carbohydrate Diet [DIET] 07/04/19 05:00 BASIC METABOLIC PANEL,BMP [CHEM] Timed - Plan Plan:: ASSESSMENT AND PLAN - Diabetic ketoacidosis-she is off the insulin drip as of this morning. Anion gap has normalized. Bicarb is up to 20. Symptomatically she is feeling better. Tachycardia has been improving. Hemoglobin A1c was greater than 13. -Discontinue insulin drip -Start Levemir twice daily -Short acting insulin 10 units with meals -Medium dose sliding scale -BMP in the morning -Diabetic education Anion gap metabolic acidosis-secondary to DKA. No evidence for kidney failure at this time. Anion gap is normal. -Management as above Methamphetamine abuse-patient reports using the methamphetamine to help with her abdominal pain and myalgias. She does not believe that she has a problem. She does not report regular use of methamphetamines but her very poor dentition would suggest otherwise. There will need to be more discussions with her about her methamphetamine use when she is feeling better after diabetic ketoacidosis has resolved. -Offer cessation resources Maintenance issues - - DVT prophylaxis -mechanical - GI prophylaxis -PPI - Nutrition -consistent carbohydrate Disposition -I would anticipate discharge to home after the hospital stay Primary care physician -yusef Rudolph M.D.
[2019-07-03] MEDS: Melatonin 3 MG Tab PO SCH (21:18)
[2019-07-04] MEDS: oxyCODONE 5 MG Tab PO PRN ×2 (02:27→07:07)
[2019-07-04] MEDS: Acetaminophen 325 MG Tab PO PRN ×2 (02:27→07:07)
[2019-07-04] MEDS ORDERED: Potassium Chloride 20 MEQ Tab.ER PO ONE ×2 (06:44→09:00)
[2019-07-04] MEDS: Pantoprazole 40 MG Tab.CR PO SCH (07:29)
[2019-07-04] MEDS: Insulin Lispro 100 Unit/ML 3 ML KwikPen SUBCUT SCH ×2 (07:57→07:59)
--- NOTE | 2019-07-04 08:59 | PCM.DCSUM1 ---
Discharge Summary - Hospital Course Brief History: 28-year-old female with history of insulin-dependent diabetes mellitus who presented with abdominal pain, nausea and vomiting. She is admitted for management of diabetic ketoacidosis with high anion gap metabolic acidosis. Diagnosis: Stroke: No - Discharge Data Discharge Date: 07/04/19 Discharge Disposition: Home, Self-Care 01 Condition: Good - Referral to Home Health Primary Care Physician: PCP None - Discharge Diagnosis/Problem(s) (1) Diabetic ketoacidosis SNOMED Code(s): 961583841, 360090381 ICD Code: E13.10 - OTH DIABETES MELLITUS WITH KETOACIDOSIS WITHOUT COMA Status: Acute Qualifiers: Diabetes mellitus type: type 1 Diabetes mellitus complication detail: without coma Qualified Code(s): E10.10 - Type 1 diabetes mellitus with ketoacidosis without coma (2) High anion gap metabolic acidosis SNOMED Code(s): 74490318 ICD Code: E87.2 - ACIDOSIS Status: Acute (3) Methamphetamine abuse SNOMED Code(s): 640808887 ICD Code: F15.10 - OTHER STIMULANT ABUSE, UNCOMPLICATED Status: Chronic - Patient Summary/Data Hospital Course: Lori presented to the emergency room with nausea, vomiting and diffuse myalgias. Work-up in the emergency room suggested severe diabetic ketoacidosis with a pH of 7 and a bicarb level of around 7. She had moderate hyperglycemia. She did also admit to recent methamphetamine use to help with her diffuse myalgias. She was started on an insulin drip and admitted to the hospital for further management. Over the next 24 hours we did see a slow but steady improvement in her elevated anion gap and bicarb levels. About 24 hours after admission her levels did normalize. She did require some potassium supplementation along the way. Her blood sugar levels improved fairly quickly and she did require a dextrose infusion to complete the treatment for diabetic ketoacidosis. Once her anion gap and bicarbonate levels were normal we did transition her to subcutaneous insulin. She tolerated her diet well. Blood sugars have been fairly well controlled using her usual supplemental insulin. I did check a hemoglobin A1c which was elevated at more than 13. The patient reported that she had been out of medications for about a week but I suspect that she has not been doing very well with her diabetes care even prior to this. From the ketoacidosis standpoint she is doing well and is safe for hospital discharge. We did provide refills of her long and short acting insulin which a family member picked up for her the day prior to discharge. She will be scheduling a follow-up with a new primary care in the next 1 to 2 weeks. She does continue to endorse some epigastric and chest discomfort which I suspect is muscular and related to her recent retching and vomiting. There was no evidence for acute coronary syndrome and her vital signs have all been stable. We did also discuss her methamphetamine use. She does not feel that she has a problem with methamphetamine at this time and uses it only sporadically when she has significant pain issues. She was not interested in any sort of treatment or cessation information. - Patient Instructions Diet: Diabetic Diet Activity: As Tolerated Showering/Bathing: May Shower Notify Provider of: Fever, Increased Pain, Nausea and/or Vomiting Other/Special Instructions: 1. You were in the hospital for management of diabetic ketoacidosis. Your condition has been improving with IV fluids and IV insulin. We have transitioned you back to her usual doses of insulin including both long and short acting versions. I strongly recommend that you adhere to your insulin regimen to avoid further episodes of diabetic ketoacidosis. Over the long-term if your blood sugars are not well controlled you can have difficulties with vision, with your heart, with blood vessels and with your kidneys. 2. Continue your usual home medications as previously prescribed. 3. Follow up with your primary care in 1 to 2 weeks. 4. I would strongly advise you to completely abstain from using methamphetamines. These have significant adverse effects on your body over both the short and long-term. If you have any interest in cessation resources you may contact your primary care provider. - Discharge Plan *PRESCRIPTION DRUG MONITORING PROGRAM REVIEWED*: Not Applicable *COPY OF PRESCRIPTION DRUG MONITORING REPORT IN PATIENT SRI: Not Applicable Prescriptions/Med Rec: Insulin Aspart [NovoLOG] 15 unit SUBCUT TIDAC #5 pen Insulin Detemir [Levemir] 50 unit SUBCUT BID #5 pen Home Medications: Home Meds Insulin Aspart [Novolog Flexpen] 15 unit SQ TIDAC 03/13/14 [History] Insulin Detemir [Levemir] 50 unit SQ BID 03/13/14 [History] Insulin Aspart [NovoLOG] 15 unit SUBCUT TIDAC #5 pen 07/03/19 [Rx] Insulin Detemir [Levemir] 50 unit SUBCUT BID #5 pen 07/03/19 [Rx] Oxygen Therapy Mode: Room Air Patient Handouts: Preventing Diabetic Ketoacidosis Referrals: PCP,None [Primary Care Provider] - (f/u with your primary care in the next 1-2 weeks or sooner if needed ) - Discharge Summary/Plan Comment DC Time >30 min.: No - Patient Data Vitals - Most Recent: Last Vital Signs Temp 35.5 C L 07/04/19 06:57 Pulse 81 07/04/19 06:57 Resp 16 07/04/19 06:57 BP 115/70 07/04/19 06:57 Pulse Ox 97 07/04/19 06:57 Weight - Most Recent: 92.986 kg I&O - Last 24 hours: Intake & Output 07/03/19 07/04/19 07/04/19 22:59 06:59 14:59 Intake Total 1200 Balance 1200 Lab Results - Last 24 hrs: Laboratory Results - last 24 hr 07/04/19 Range/Units 05:30 Sodium 140 (140-148) mmol/L Potassium 3.0 L (3.6-5.2) mmol/L Chloride 107 (100-108) mmol/L Carbon Dioxide 25 (21-32) mmol/L Anion Gap 11.0 (5.0-14.0) mmol/L BUN 5 L D (7-18) mg/dL Creatinine 0.5 L (0.6-1.0) mg/dL Est Cr Clr Drug Dosing 177.91 mL/min Estimated GFR (MDRD) > 60 (>60) Glucose 192 H (74-106) mg/dL Calcium 7.6 L (8.5-10.1) mg/dL [facility] Results - Last 24 hrs: Microbiology 07/02/19 05:39 Aerobic Blood Culture - Preliminary Blood - Venous - Lab Draw NO GROWTH AFTER 2 DAYS Anaerobic Blood Culture - Preliminary NO GROWTH AFTER 2 DAYS 07/02/19 05:30 Aerobic Blood Culture - Preliminary Blood - Venous NO GROWTH AFTER 2 DAYS Anaerobic Blood Culture - Preliminary NO GROWTH AFTER 2 DAYS Med Orders - Current: Current Medications Acetaminophen (Tylenol) 650 mg PO Q4H PRN PRN Reason: Pain (Mild 1-3)/fever Last Admin: 07/04/19 07:07 Dose: 650 mg Insulin Glargine (Lantus Solostar) 50 units SUBCUT BID [facility] Last Admin: 07/03/19 21:17 Dose: 50 units Insulin Human Lispro (Humalog) 0 unit SUBCUT QIDACANDBED [facility]; Protocol Last Admin: 07/04/19 07:57 Dose: 2 units Insulin Human Lispro (Humalog) 10 unit SUBCUT TIDMEALS [facility] Last Admin: 07/04/19 07:59 Dose: 10 units Lorazepam (Ativan) 0.5 mg IVPUSH Q4H PRN PRN Reason: Nausea/Vomiting Last Admin: 07/02/19 21:12 Dose: 0.5 mg Magnesium Hydroxide (Milk Of Magnesia) 30 ml PO Q12H PRN PRN Reason: Constipation Melatonin (Melatonin) 9 mg PO BEDTIME [facility] Last Admin: 07/03/19 21:18 Dose: 9 mg Ondansetron HCl (Zofran Odt) 4 mg PO Q6H PRN PRN Reason: Nausea able to take PO Ondansetron HCl (Zofran) 4 mg IV Q6H PRN PRN Reason: Nausea/Vomiting Last Admin: 07/02/19 17:33 Dose: 4 mg Oxycodone HCl (Oxycodone) 5 mg PO Q4H PRN PRN Reason: Pain (moderate 4-6) Last Admin: 07/04/19 07:07 Dose: 5 mg Pantoprazole Sodium (Protonix) 40 mg PO ACBREAKFAST [facility] Last Admin: 07/04/19 07:29 Dose: 40 mg Potassium Chloride (Klor-Con M20) 40 meq PO ONETIME ONE Stop: 07/04/19 09:01 Senna/Docusate Sodium (Senna Plus) 1 tab PO BID PRN PRN Reason: Constipation Sodium Chloride (Saline Flush) 10 ml FLUSH ASDIRECTED PRN PRN Reason: Keep Vein Open Last Admin: 07/02/19 05:44 Dose: 10 ml Discontinued Medications Fentanyl (Sublimaze) 50 mcg IVPUSH ONETIME ONE Stop: 07/02/19 05:22 Last Admin: 07/02/19 05:40 Dose: 50 mcg Hydromorphone HCl (Dilaudid) 0.5 mg IVPUSH ONETIME ONE Stop: 07/02/19 07:25 Last Admin: 07/02/19 10:38 Dose: Not Given Hydromorphone HCl (Dilaudid) 0.5 mg IVPUSH Q2H PRN PRN Reason: Pain (severe 7-10) Last Admin: 07/02/19 09:34 Dose: 0.5 mg Insulin Regular in 0.9 % NACL (Myxredlin 100 Unit/100 Ml) 100 mls @ 11.748 mls/ hr IV ASDIRECTED [facility]; Protocol Last Infusion: 07/02/19 21:59 Dose: 0.02 units/kg/hr, 2 mls/hr Sodium Chloride (Normal Saline) 1,000 mls @ 999 mls/hr IV ASDIRECTED [facility] Last Admin: 07/02/19 05:37 Dose: 999 mls/hr Sodium Chloride (Normal Saline) 1,000 mls @ 999 mls/hr IV ASDIRECTED [facility] Last Admin: 07/02/19 08:22 Dose: 999 mls/hr Insulin Regular in 0.9 % NACL (Myxredlin 100 Unit/100 Ml) 100 mls @ 8.392 mls/ hr IV ASDIRECTED [facility]; Protocol Last Infusion: 07/03/19 08:21 Dose: 0.02 units/kg/hr, 2 mls/hr Potassium Chloride/Sodium Chloride (Normal Saline With 20 Meq Kcl) 1,000 mls @ 125 mls/hr IV ASDIRECTED [facility] Potassium Chloride/Dextrose/Sod Cl (D5 Ns With 20 Meq Kcl) 1,000 mls @ 125 mls/ hr IV ASDIRECTED [facility] Last Admin: 07/03/19 01:50 Dose: 125 mls/hr Potassium Chloride 20 meq/Lidocaine HCl 2 ml/ Sodium Chloride 112 mls @ 56 mls/ hr IV Q2H [facility] Stop: 07/02/19 19:59 Last Admin: 07/02/19 18:05 Dose: 56 mls/hr Potassium Chloride 20 meq/ (Premix) 100 mls @ 50 mls/hr IV Q2H [facility] Stop: 07/03/19 02:59 Last Admin: 07/03/19 01:15 Dose: 50 mls/hr Potassium Chloride 20 meq/Lidocaine HCl 2 ml/ Sodium Chloride 112 mls @ 56 mls/ hr IV Q2H [facility] Stop: 07/03/19 13:59 Last Admin: 07/03/19 12:38 Dose: 56 mls/hr Lidocaine HCl (Xylocaine-Mpf 1%) 5 ml INJECT ONETIME ONE Stop: 07/02/19 22:43 Last Admin: 07/02/19 23:15 Dose: 5 ml Ondansetron HCl (Zofran) 4 mg IVPUSH ONETIME ONE Stop: 07/02/19 05:15 Last Admin: 07/02/19 05:36 Dose: 4 mg Potassium Chloride (Klor-Con M20) 40 meq PO ONETIME ONE Stop: 07/02/19 12:01 Last Admin: 07/02/19 14:28 Dose: Not Given - Exam Quality Assessment: Denies: Supplemental Oxygen General: Reports: Alert, Oriented, Cooperative, No Acute Distress HEENT: Reports: Other (poor dentition) Cardiovascular: Reports: Regular Rate, Regular Rhythm GI/Abdominal Exam: Soft, No Distention Extremities: No Pedal Edema Psy/Mental Status: Reports: Alert, Normal Affect
[2019-07-04] MEDS: Insulin Glargine,Human Rec. Analog 100 Units/ML 3 ML Pen SUBCUT SCH (09:35)
[2019-07-04 09:46] VITALS: BP 83/66; PULSE 85
== END 2019-07-04 10:20 | disposition home or self-care (01) | DRG 639 ==
LOC: JP.ED 05:03 → JP.ICU 07:26 → JP.MS 07-03 14:41
PROVIDERS: ADMIT Internal Medicine; ATTEND Internal Medicine
DX: E10.10 Type 1 diabetes mellitus with ketoacidosis without coma (principal); F15.10 Other stimulant abuse, uncomplicated; F17.200 Nicotine dependence, unspecified, uncomplicated; M25.562 Pain in left knee; G89.29 Other chronic pain; D64.9 Anemia, unspecified; Z90.49 Acquired absence of other specified parts of digestive tract; Z88.6 Allergy status to analgesic agent
CPT/HCPCS: 36415; 36600; 80048; 80053; 80305-QW; 81001; 82009; 82803; 82947; 82962; 83036; 83605; 83735; 84100; 84132; 85025; 85027; 87040; 96361; 96374; 96375; 99221-AI; 99231; 99238; 99285; 99285-25; A9270-GY; J1170; J1815; J1815-GY; J2001; J2060; J2405; J3010; J3480; J7030; J7050

== ENCOUNTER 2019-10-25 16:49 | Inpatient (IN) | payer MEDICAID ==
[2019-10-25] MEDS ORDERED: Lactated Ringers 1,000 ML IV ONE (16:56)
[2019-10-25] MEDS ORDERED: Metoclopramide 10 MG/2 ML SDV IVPUSH ONE (16:57)
--- NOTE | 2019-10-25 17:11 | EDM.PDOC ---
ED HPI GENERAL MEDICAL PROBLEM - General Chief Complaint: Gastrointestinal Problem Stated Complaint: VOMITING, HIGH BLOOD SUGARS Time Seen by Provider: 10/25/19 16:55 Source of Information: Reports: Patient, Old Records History Limitations: Reports: No Limitations - History of Present Illness INITIAL COMMENTS - FREE TEXT/NARRATIVE: 29 yo NA female from [place] with DM presents with onset yesterday of polyuria and today nausea and vomiting. She is on injectable insulin, but does not use a glucose meter. Her primary is in [place]. She has a pHx of MRSA infections. Was here just a few months ago for DKA. Denies any hematemesis or melena and no abdominal distention. No fever or chest pain. Says she thinks her children got into her insulin so she ran out recently. Onset: Gradual Onset Date: 10/24/19 Duration: Day(s): (1.5), Getting Worse Location: Reports: Abdomen Quality: Reports: Other (mild) Severity: Mild Improves with: Reports: None Worsens with: Reports: Other (repetitive vomiting) Context: Reports: Other (See HPI) Associated Symptoms: Reports: Nausea/Vomiting. Denies: Fever/Chills Treatments BAGEL MAKER: Reports: Other (see below) (none) - Related Data Allergies Allergy/AdvReac Type Severity Reaction Status Date / Time ibuprofen Allergy Unknown Swelling Verified 07/02/19 05:13 Home Meds: Home Meds Insulin Aspart [Novolog Flexpen] 15 unit SQ TIDAC 03/13/14 [History] Insulin Detemir [Levemir] 50 unit SQ BID 03/13/14 [History] Insulin Aspart [NovoLOG] 15 unit SUBCUT TIDAC #5 pen 07/03/19 [Rx] Insulin Detemir [Levemir] 50 unit SUBCUT BID #5 pen 07/03/19 [Rx] Past Medical History Gastrointestinal History: Reports: Cholelithiasis, Other (See Below) Other Gastrointestinal History: 90# weight loss in past year Musculoskeletal History: Reports: Other (See Below) Other Musculoskeletal History: chronic left knee pain Psychiatric History: Reports: Addiction Endocrine/Metabolic History: Reports: Diabetes, Type I, IDDM Hematologic History: Reports: Anemia Dermatologic History: Reports: Other (See Below) Other Dermatologic History: boils on buttock and abdomin - Infectious Disease History Infectious Disease History: Reports: Chicken Pox - Past Surgical History GI Surgical History: Reports: Cholecystectomy Social & Family History - Family History Family Medical History: Noncontributory - Caffeine Use Caffeine Use: Reports: Coffee - Living Situation & Occupation Living situation: Reports: Single ED ROS GENERAL - Review of Systems Review Of Systems: See Below Constitutional: Reports: Malaise HEENT: Reports: No Symptoms Respiratory: Reports: No Symptoms Cardiovascular: Reports: Lightheadedness Endocrine: Reports: High Glucose (assumed by patient as she does not actually check it. ) GI/Abdominal: Reports: Abdominal Pain (minimal), Nausea, Vomiting. Denies: Black Stool, Bloody Stool, Constipation, Diarrhea, Distension, Flatus, Hematemesis, Hematochezia, Melena : Reports: Frequency Musculoskeletal: Reports: No Symptoms Skin: Reports: Other (truncal wounds from drainage of MRSA abscesses) Neurological: Reports: No Symptoms ED EXAM, GI/ABD - Physical Exam Exam: See Below Exam Limited By: No Limitations General Appearance: Alert, WD/WN, Mild Distress Eyes: Bilateral: Normal Appearance Ears: Normal External Exam, Normal Canal, Hearing Grossly Normal Nose: Normal Inspection, No Blood Throat/Mouth: Normal Lips, Normal Oropharynx, Normal Voice, No Airway Compromise, Other (mildly dry oral mucosa). No: Normal Teeth (poor dentitian) Head: Atraumatic, Normocephalic Neck: Normal Inspection Respiratory/Chest: No Respiratory Distress, Lungs Clear, Normal Breath Sounds, No Accessory Muscle Use Cardiovascular: Regular Rate, Rhythm GI/Abdominal Exam: Normal Bowel Sounds, Soft, Non-Tender, No Distention, Other (striae) Back Exam: Normal Inspection. No: CVA Tenderness (R), CVA Tenderness (L) Extremities: Normal Inspection, Normal Range of Motion, Non-Tender, No Pedal Edema. No: Pedal Edema Neurological: Alert, Oriented, CN II-XII Intact, Normal Cognition, No Motor/Sensory Deficits Psychiatric: Normal Affect, Normal Mood Skin Exam: Warm, Dry, Intact, Normal Color, No Rash Course - Vital Signs Text/Narrative:: Dr. Rudolph called @ 9055h Last Recorded V/S: Last Vital Signs Temp 36.3 C 10/25/19 17:16 Pulse 126 H 10/25/19 17:16 Resp 13 10/25/19 17:16 BP 107/52 L 08/16/20 17:16 Pulse Ox 100 10/25/19 17:16 - Orders/Labs/Meds Orders: Active Orders 24 hr Category Date Time Status BASIC METABOLIC PANEL,BMP [CHEM] Stat Lab 10/25/19 16:56 Ordered DRUG SCREEN, URINE [URCHEM] Stat Lab 10/25/19 16:57 Ordered UA W/MICROSCOPIC [URIN] Stat Lab 10/25/19 16:56 Ordered Lactated Ringers [Ringers, Lactated] 1,000 ml Med 10/25/19 16:56 Active IV BOLUS Medication Orders Lactated Ringer's (Ringers, Lactated) 1,000 mls @ 1,000 mls/hr IV BOLUS ONE Stop: 10/25/19 17:55 Labs: Laboratory Tests 10/25/19 10/25/19 Range/Units 17:09 17:09 WBC 11.7 H (4.5-11.0) K/uL RBC 5.87 H (3.30-5.50) M/uL Hgb 14.9 D (12.0-15.0) g/dL Hct 49.9 H (36.0-48.0) % MCV 85 (80-98) fL MCH 25 L (27-31) pg MCHC 30 L (32-36) % Plt Count 427 H (150-400) K/uL VBG pH 7.142 L (7.350-7.450) Meds: Medications Generic Name Dose Route Start Last Admin Trade Name Freq PRN Reason Stop Dose Admin Lactated Ringer's 1,000 mls @ 1,000 mls/hr 10/25/19 16:56 Ringers, Lactated IV 10/25/19 17:55 BOLUS ONE Discontinued Medications Generic Name Dose Route Start Last Admin Trade Name Freq PRN Reason Stop Dose Admin Metoclopramide HCl 10 mg 10/25/19 16:57 Reglan IVPUSH 10/25/19 16:58 ONETIME ONE Departure - Departure Time of Disposition: 17:45 Disposition: Admitted As Inpatient 64 Condition: Poor Clinical Impression: DKA (diabetic ketoacidoses) Qualifiers: Diabetes mellitus type: type 1 Diabetes mellitus complication detail: without coma Qualified Code(s): E10.10 - Type 1 diabetes mellitus with ketoacidosis without coma - Discharge Information *PRESCRIPTION DRUG MONITORING PROGRAM REVIEWED*: No *COPY OF PRESCRIPTION DRUG MONITORING REPORT IN PATIENT SRI: No Referrals: PCP,None [Primary Care Provider] - Forms: ED Department Discharge Sepsis Event Note (ED) - Focused Exam Vital Signs: Vital Signs Temp Pulse Resp BP Pulse Ox 10/25/19 17:16 36.3 C 126 H 13 107/52 L 100 10/25/19 16:58 36.3 C 126 H 13 107/52 L 100 - My Orders Last 24 Hours: My Active Orders 10/25/19 16:56 BASIC METABOLIC PANEL,BMP [CHEM] Stat UA W/MICROSCOPIC [URIN] Stat Lactated Ringers [Ringers, Lactated] 1,000 ml IV BOLUS 10/25/19 16:57 DRUG SCREEN, URINE [URCHEM] Stat - Assessment/Plan Last 24 Hours: My Active Orders 10/25/19 16:56 BASIC METABOLIC PANEL,BMP [CHEM] Stat UA W/MICROSCOPIC [URIN] Stat Lactated Ringers [Ringers, Lactated] 1,000 ml IV BOLUS 10/25/19 16:57 DRUG SCREEN, URINE [URCHEM] Stat
[2019-10-25] MEDS ORDERED: HYDROmorphone 0.5 MG/0.5 ML Syringe IVPUSH ONE (17:48)
--- NOTE | 2019-10-25 18:14 | PCM.HP.2 ---
H&P History of Present Illness - General Date of Service: 10/25/19 Admit Problem/Dx: Admission Diagnosis/Problem Admission Diagnosis/Problem Diabetic ketoacidosis without coma Source of Information: Patient, Provider History Limitations: Reports: No Limitations - History of Present Illness Initial Comments - Free Text/Narative: CC: I keep puking up HPI: Lori presents to the emergency room today with abdominal pain, nausea and vomiting. Symptoms started yesterday and have progressed over that time. She describes her abdominal pain as achy generalized pain. Pain has been relatively constant but does get worse when she vomits. She did not take anything at home to make the pain better. Pain is slowly been getting worse. She has had multiple episodes of nausea with vomiting and has been unable to keep down any food and only small quantities of liquid. She reports that she ran out of her insulin a couple of days ago. She thought she had enough to get through until her appointment 2 days from now but came up several days short. Yesterday she had polyuria but today her urine output seems to be less than usual. No complaints of shortness of breath or fever but she does report a mild cough. No change in bowel habits. No obvious sick contacts. She does have several open abdominal wounds from abscess debridement and these are healing. She is getting daily wound care from home care. She is not currently on antibiotics. Work-up in the emergency room revealed evidence for diabetic ketoacidosis with a pH of 7.1 on venous blood gases. Blood sugar is nearly 400. Anion gap is 30 and her bicarb is only 8. She has received IV fluids and a dose of metoclopramide. She is going to be admitted for management of diabetic ketoacidosis. Abdomen Pain Score (Numeric/FACES): 7 - Related Data Allergies/Adverse Reactions: Allergies Allergy/AdvReac Type Severity Reaction Status Date / Time ibuprofen Allergy Unknown Swelling Verified 10/25/19 19:36 Home Medications: Home Meds Insulin Aspart [Novolog Flexpen] 5 - 15 unit SQ TIDAC 03/13/14 [History] Insulin Detemir [Levemir] 30 unit SQ ACBREAKFAST 03/13/14 [History] Insulin Detemir [Levemir] 40 units SQ ACDINNER 10/25/19 [History] Past Medical History Gastrointestinal History: Reports: Cholelithiasis, Other (See Below) Other Gastrointestinal History: 90# weight loss in past year Musculoskeletal History: Reports: Other (See Below) Other Musculoskeletal History: chronic left knee pain Psychiatric History: Reports: Addiction Endocrine/Metabolic History: Reports: Diabetes, Type I, IDDM Hematologic History: Reports: Anemia Dermatologic History: Reports: Other (See Below) Other Dermatologic History: boils on buttock and abdomin - Infectious Disease History Infectious Disease History: Reports: Chicken Pox, MRSA Other Infectious Disease History: MRSA HX OF IN ABD. WOUND - Past Surgical History GI Surgical History: Reports: Cholecystectomy Endocrine Surgical History: Reports: None Musculoskeletal Surgical History: Reports: None Dermatological Surgical History: Reports: None Social & Family History - Family History Family Medical History: Noncontributory - Tobacco Use Smoking Status *Q: Current Every Day Smoker Years of Tobacco use: 10 Packs/Tins Daily: 2 - Caffeine Use Caffeine Use: Reports: None - Recreational Drug Use Recreational Drug Use: Yes Recreational Drug Type: Reports: Marijuana/Hashish - Living Situation & Occupation Living situation: Reports: Single H&P Review of Systems - Review of Systems: Review Of Systems: See Below Free Text/Narrative: A complete 12 point review of systems was obtained. Pertinent positives and negatives are noted in the history of present illness. All other systems were reviewed and were negative except as noted. Exam - Exam Exam: See Below - Vital Signs Vital Signs: Last Vital Signs Temp 36.3 C 10/25/19 17:17 Pulse 125 H 10/25/19 17:58 Resp 16 10/25/19 17:58 BP 131/91 H 10/25/19 17:58 Pulse Ox 99 10/25/19 17:58 Weight: 90.718 kg - Exam Quality Assessment: No: Supplemental Oxygen General: Alert, Oriented, Cooperative. No: Mild Distress HEENT: Conjunctiva Clear, Other (very poor dentition, missing multiple teeth ). No: Mucosa Moist & [place] (dry) Neck: Supple, Trachea Midline. No: Lymphadenopathy Lungs: Clear to Auscultation, Normal Respiratory Effort Cardiovascular: Regular Rhythm, Tachycardia. No: Systolic Murmur GI/Abdominal Exam: Normal Bowel Sounds, Soft, No Distention, Tender (moderate diffuse). No: Guarding Extremities: No Pedal Edema. No: Increased Warmth Skin: Warm, Dry, Wound (four sites on her abdomen are covered by adherent dressings. No surrounding erythema ) Neuro Extensive - Mental Status: Alert, Oriented x3, Nl Response to Commands Neuro Extensive - Motor, Sensory, Reflexes: No: Dysarthria, Abnormal Motor, Tremor Psychiatric: Alert, Normal Affect - Patient Data Lab Results Last 24 hrs: Laboratory Results - last 24 hr 10/25/19 10/25/19 10/25/19 Range/Units 17:09 17:09 17:09 WBC 11.7 H (4.5-11.0) K/uL RBC 5.87 H (3.30-5.50) M/uL Hgb 14.9 D (12.0-15.0) g/dL Hct 49.9 H (36.0-48.0) % MCV 85 (80-98) fL MCH 25 L (27-31) pg MCHC 30 L (32-36) % Plt Count 427 H (150-400) K/uL VBG pH 7.142 L (7.350-7.450) Sodium 135 L (140-148) mmol/L Potassium 4.4 (3.6-5.2) mmol/L Chloride 99 L (100-108) mmol/L Carbon Dioxide 8 L D (21-32) mmol/L Anion Gap 32.4 H (5.0-14.0) mmol/L BUN 20 H D (7-18) mg/dL Creatinine 0.9 D (0.6-1.0) mg/dL Est Cr Clr Drug Dosing 97.94 mL/min Estimated GFR (MDRD) > 60 (>60) Glucose 370 H (74-106) mg/dL Calcium 8.7 (8.5-10.1) mg/dL Result Diagrams: 10/27/19 05:00 10/27/19 05:00 Sepsis Event Note - Evaluation Sepsis Screening Result: No Definite Risk - Focused Exam Vital Signs: Vital Signs Temp Pulse Resp BP Pulse Ox 10/25/19 17:58 125 H 16 131/91 H 99 10/25/19 17:17 36.3 C 126 H 13 107/52 L 100 10/25/19 17:16 36.3 C 126 H 13 107/52 L 100 10/25/19 16:58 36.3 C 126 H 13 107/52 L 100 *Q Meaningful Use (ADM) - VTE Risk Assess *Q Each Risk Factor Represents 1 Point: Obesity ( BMI > 25 kg/m2) Total Score 1 Point Risk Factors: 1 Each Risk Factor Represents 2 Points: None Total Score 2 Point Risk Factors: 0 Each Risk Factor Represents 3 Points: None Total Score 3 Point Risk Factors: 0 Each Risk Factor Represents 5 Points: None Total Score 5 Point Risk Factors: 0 Venous Thromboembolism Risk Factor Score *Q: 1 - Problem List (1) Diabetic ketoacidosis SNOMED Code(s): 918443085, 571972271 ICD Code: E13.10 - OTH DIABETES MELLITUS WITH KETOACIDOSIS WITHOUT COMA Status: Acute Qualifiers: Diabetes mellitus type: type 1 Diabetes mellitus complication detail: without coma Qualified Code(s): E10.10 - Type 1 diabetes mellitus with ketoacidosis without coma (2) High anion gap metabolic acidosis SNOMED Code(s): 34679184 ICD Code: E87.2 - ACIDOSIS Status: Acute Problem List Initiated/Reviewed/Updated: Yes Orders Last 24hrs: Active Orders 24 hr Category Date Time Status Patient Status Manage Transfer [TRANSFER] Routine ADT 10/25/19 18:03 Ordered DRUG SCREEN, URINE [URCHEM] Stat Lab 10/25/19 16:57 Ordered UA W/MICROSCOPIC [URIN] Stat Lab 10/25/19 16:56 Ordered Resuscitation Status Routine Resus Stat 10/25/19 18:04 Ordered Assessment/Plan Comment:: ASSESSMENT AND PLAN - Diabetic ketoacidosis without coma-progressive symptoms over 24 to 48 hours. Patient ran out of insulin. No evidence for infection. She has associated abdominal pain with nausea and vomiting. Kidney function normal. -Low-dose insulin drip -Normal saline infusion -I anticipate she will need dextrose containing solution to keep her blood sugars in the normal range for her anion gap closes -BMP every 4 hours until her anion gap is normal -Transition to subcutaneous insulin once anion gap normal -Diabetes education High anion gap metabolic acidosis-secondary to DKA. -Management as above Recent abdominal abscesses-not currently on antibiotics. She is receiving daily wound care. Maintenance issues - - DVT prophylaxis -SCDs - GI prophylaxis -one-time dose of PPI tonight - Nutrition -clear liquids - Frausto catheter -not indicated CODE STATUS -full code Admission justification -this patient will be admitted for inpatient services and is medically appropriate meeting medical necessity for inpatient admission as outlined in my documentation. I reasonably expect the patient will require inpatient services that span a period time over 2 midnights. I reasonably expect this patient to be discharged or transferred within 96 hours [facility]. Disposition -I would anticipate discharge home after the hospital stay Primary care physician -[facility] in [place] Lazaro Rudolph M.D. - Mortality Measure Prognosis:: Good
[2019-10-25] MEDS ORDERED: Melatonin 3 MG Tab PO PRN (18:30)
[2019-10-25] MEDS ORDERED: Sodium Chloride 0.9% 1,000 ML IV SCH (18:30)
[2019-10-25] MEDS ORDERED: Magnesium Hydroxide 400 MG/5 ML Susp 30 ML Cup PO PRN (18:30)
[2019-10-25] MEDS ORDERED: Sodium Chloride 0.9% 500 ML IV SCH (18:30)
[2019-10-25] MEDS ORDERED: Acetaminophen 325 MG Tab PO PRN (18:30)
[2019-10-25] MEDS ORDERED: Ondansetron 4 MG Tab.DIS PO PRN (18:30)
[2019-10-25] MEDS ORDERED: Insulin Regular in 0.9 % NACL 100 ML IV SCH (18:30)
[2019-10-25] MEDS ORDERED: LORazepam 2 MG/ML SDV IVPUSH PRN (18:30)
[2019-10-25] MEDS ORDERED: Ondansetron 4 MG/2 ML SDV IV PRN (18:30)
[2019-10-25] MEDS ORDERED: Pantoprazole 40 MG Vial IVPUSH ONE (20:00)
[2019-10-25] MEDS: HYDROmorphone 1 MG/ML Syringe IVPUSH PRN ×2 (20:19→23:06)
[2019-10-25] MEDS: Dextrose 5%-0.9% NaCl with KCl 1,000 ML IV SCH (22:28)
[2019-10-26] MEDS: HYDROmorphone 1 MG/ML Syringe IVPUSH PRN (01:54)
[2019-10-26] MEDS: Dextrose 5%-0.9% NaCl with KCl 1,000 ML IV SCH ×2 (06:23→14:19)
[2019-10-26] MEDS: oxyCODONE 5 MG Tab PO PRN ×4 (08:10→21:15)
[2019-10-26] MEDS: Insulin Glargine,Human Rec. Analog 100 Units/ML 3 ML Pen SUBCUT SCH (10:34)
--- NOTE | 2019-10-26 13:07 | PCM.PN ---
- General Info Date of Service: 10/26/19 Subjective Update: Ms. Gómez is a 29-year-old woman who was admitted through the emergency department last night with diabetic ketoacidosis. She had experienced nausea and vomiting and ran out of her long-acting insulin. She has been treated with continuous infusion of IV insulin since last night. Blood glucose levels have improved and there has been improvement in her ketoacidosis although not resolved totally. She is feeling well and denies significant pain. Functional Status: Reports: Tolerating Diet, Ambulating, Urinating - Review of Systems General: Reports: No Symptoms Pulmonary: Reports: No Symptoms Cardiovascular: Reports: No Symptoms Gastrointestinal: Reports: No Symptoms - Patient Data Vitals - Most Recent: Last Vital Signs Temp 97.1 F 10/26/19 11:58 Pulse 104 H 10/26/19 11:58 Resp 20 10/26/19 11:58 BP 110/67 10/26/19 11:58 Pulse Ox 98 10/26/19 11:58 Weight - Most Recent: 178 lb 8 oz I&O - Last 24 Hours: Intake & Output 10/25/19 10/26/19 10/26/19 22:59 06:59 14:59 Intake Total 3627 400 Output Total 900 Balance 2727 400 Lab Results Last 24 Hours: Laboratory Results - last 24 hr 10/25/19 10/25/19 10/25/19 Range/Units 17:09 17:09 17:09 WBC 11.7 H (4.5-11.0) K/uL RBC 5.87 H (3.30-5.50) M/uL Hgb 14.9 D (12.0-15.0) g/dL Hct 49.9 H (36.0-48.0) % MCV 85 (80-98) fL MCH 25 L (27-31) pg MCHC 30 L (32-36) % Plt Count 427 H (150-400) K/uL VBG pH 7.142 L (7.350-7.450) Sodium 135 L (140-148) mmol/L Potassium 4.4 (3.6-5.2) mmol/L Chloride 99 L (100-108) mmol/L Carbon Dioxide 8 L D (21-32) mmol/L Anion Gap 32.4 H (5.0-14.0) mmol/L BUN 20 H D (7-18) mg/dL Creatinine 0.9 D (0.6-1.0) mg/dL Est Cr Clr Drug Dosing 97.94 mL/min Estimated GFR (MDRD) > 60 (>60) Glucose 370 H (74-106) mg/dL Calcium 8.7 (8.5-10.1) mg/dL Magnesium (1.8-2.4) mg/dL Urine Color (YELLOW) Urine Appearance (CLEAR) Urine pH (5.0-8.0) Ur Specific [place] (1.008-1.030) Urine Protein (NEGATIVE) mg/dL Urine Glucose (UA) (NEGATIVE) mg/dL Urine Ketones (NEGATIVE) mg/dL Urine Occult Blood (NEGATIVE) Urine Nitrite (NEGATIVE) Urine Bilirubin (NEGATIVE) Urine Urobilinogen (0.2-1.0) EU/dL Ur Leukocyte Esterase (NEGATIVE) Urine RBC (0-5) Urine WBC (0-5) Ur Epithelial Cells Amorphous Sediment Urine Bacteria Urine Mucus Urine Opiates Screen (NEGATIVE) Ur Oxycodone Screen (NEGATIVE) Urine Methadone Screen (NEGATIVE) Ur Propoxyphene Screen (NEGATIVE) Ur Barbiturates Screen (NEGATIVE) Ur Tricyclics Screen (NEGATIVE) Ur Phencyclidine Scrn (NEGATIVE) Ur Amphetamine Screen (NEGATIVE) U Methamphetamines Scrn (NEGATIVE) Urine MDMA Screen (NEGATIVE) U Benzodiazepines Scrn (NEGATIVE) U Cocaine Metab Screen (NEGATIVE) U Marijuana (THC) Screen (NEGATIVE) 10/25/19 10/25/19 10/25/19 Range/Units 21:00 23:00 23:00 WBC (4.5-11.0) K/uL RBC (3.30-5.50) M/uL Hgb (12.0-15.0) g/dL Hct (36.0-48.0) % MCV (80-98) fL MCH (27-31) pg MCHC (32-36) % Plt Count (150-400) K/uL VBG pH (7.350-7.450) Sodium 139 L (140-148) mmol/L Potassium 3.9 (3.6-5.2) mmol/L Chloride 106 (100-108) mmol/L Carbon Dioxide 11 L (21-32) mmol/L Anion Gap 25.9 H (5.0-14.0) mmol/L BUN 16 (7-18) mg/dL Creatinine 0.9 (0.6-1.0) mg/dL Est Cr Clr Drug Dosing 97.94 mL/min Estimated GFR (MDRD) > 60 (>60) Glucose 277 H (74-106) mg/dL Calcium 8.2 L (8.5-10.1) mg/dL Magnesium (1.8-2.4) mg/dL Urine Color Yellow (YELLOW) Urine Appearance Clear (CLEAR) Urine pH 5.5 (5.0-8.0) Ur Specific [place] >= 1.030 (1.008-1.030) Urine Protein 100 H (NEGATIVE) mg/dL Urine Glucose (UA) 500 H (NEGATIVE) mg/dL Urine Ketones >=160 H (NEGATIVE) mg/dL Urine Occult Blood Negative (NEGATIVE) Urine Nitrite Negative (NEGATIVE) Urine Bilirubin Small H (NEGATIVE) Urine Urobilinogen 0.2 (0.2-1.0) EU/dL Ur Leukocyte Esterase Negative (NEGATIVE) Urine RBC 0-5 (0-5) Urine WBC 0-5 (0-5) Ur Epithelial Cells Moderate Amorphous Sediment Not seen Urine Bacteria Few Urine Mucus Not seen Urine Opiates Screen Negative (NEGATIVE) Ur Oxycodone Screen Negative (NEGATIVE) Urine Methadone Screen Negative (NEGATIVE) Ur Propoxyphene Screen Negative (NEGATIVE) Ur Barbiturates Screen Negative (NEGATIVE) Ur Tricyclics Screen Negative (NEGATIVE) Ur Phencyclidine Scrn Negative (NEGATIVE) Ur Amphetamine Screen Negative (NEGATIVE) U Methamphetamines Scrn Negative (NEGATIVE) Urine MDMA Screen Negative (NEGATIVE) U Benzodiazepines Scrn Negative (NEGATIVE) U Cocaine Metab Screen Negative (NEGATIVE) U Marijuana (THC) Screen Negative (NEGATIVE) 10/26/19 10/26/19 10/26/19 Range/Units 01:00 05:55 05:55 WBC 9.0 (4.5-11.0) K/uL RBC 4.63 (3.30-5.50) M/uL Hgb 12.0 D (12.0-15.0) g/dL Hct 38.4 (36.0-48.0) % MCV 83 (80-98) fL MCH 26 L (27-31) pg MCHC 31 L (32-36) % Plt Count 344 (150-400) K/uL VBG pH (7.350-7.450) Sodium 135 L 135 L (140-148) mmol/L Potassium 3.8 3.8 (3.6-5.2) mmol/L Chloride 105 105 (100-108) mmol/L Carbon Dioxide 15 L 17 L (21-32) mmol/L Anion Gap 18.8 H 16.8 H (5.0-14.0) mmol/L BUN 13 11 (7-18) mg/dL Creatinine 0.7 0.7 (0.6-1.0) mg/dL Est Cr Clr Drug Dosing 125.92 125.92 mL/min Estimated GFR (MDRD) > 60 > 60 (>60) Glucose 221 H 193 H (74-106) mg/dL Calcium 7.8 L 7.9 L (8.5-10.1) mg/dL Magnesium 1.5 L (1.8-2.4) mg/dL Urine Color (YELLOW) Urine Appearance (CLEAR) Urine pH (5.0-8.0) Ur Specific [place] (1.008-1.030) Urine Protein (NEGATIVE) mg/dL Urine Glucose (UA) (NEGATIVE) mg/dL Urine Ketones (NEGATIVE) mg/dL Urine Occult Blood (NEGATIVE) Urine Nitrite (NEGATIVE) Urine Bilirubin (NEGATIVE) Urine Urobilinogen (0.2-1.0) EU/dL Ur Leukocyte Esterase (NEGATIVE) Urine RBC (0-5) Urine WBC (0-5) Ur Epithelial Cells Amorphous Sediment Urine Bacteria Urine Mucus Urine Opiates Screen (NEGATIVE) Ur Oxycodone Screen (NEGATIVE) Urine Methadone Screen (NEGATIVE) Ur Propoxyphene Screen (NEGATIVE) Ur Barbiturates Screen (NEGATIVE) Ur Tricyclics Screen (NEGATIVE) Ur Phencyclidine Scrn (NEGATIVE) Ur Amphetamine Screen (NEGATIVE) U Methamphetamines Scrn (NEGATIVE) Urine MDMA Screen (NEGATIVE) U Benzodiazepines Scrn (NEGATIVE) U Cocaine Metab Screen (NEGATIVE) U Marijuana (THC) Screen (NEGATIVE) Med Orders - Current: Current Medications Acetaminophen (Tylenol) 650 mg PO Q4H PRN PRN Reason: Pain (Mild 1-3)/fever Hydromorphone HCl (Dilaudid) 0.5 mg IVPUSH Q2H PRN PRN Reason: Pain (severe 7-10) Last Admin: 10/26/19 01:54 Dose: 0.5 mg Documented by: Insulin Regular in 0.9 % NACL (Myxredlin 100 Unit/100 Ml) 100 mls @ 9.072 mls/hr IV ASDIRECTED [facility]; Protocol Last Infusion: 10/26/19 12:01 Dose: 0.03 units/kg/hr, 3 mls/hr Documented by: Potassium Chloride/Dextrose/Sod Cl (D5 Ns With 20 Meq Kcl) 1,000 mls @ 125 mls/hr IV ASDIRECTED [facility] Last Admin: 10/26/19 06:23 Dose: 125 mls/hr Documented by: Insulin Glargine (Lantus Solostar) 30 units SUBCUT DAILY [facility] Last Admin: 10/26/19 10:34 Dose: 30 units Documented by: Lorazepam (Ativan) 0.5 mg IVPUSH Q4H PRN PRN Reason: Nausea/Vomiting Magnesium Hydroxide (Milk Of Magnesia) 30 ml PO Q12H PRN PRN Reason: Constipation Melatonin (Melatonin) 9 mg PO BEDTIME PRN PRN Reason: Sleep Ondansetron HCl (Zofran) 4 mg IV Q6H PRN PRN Reason: Nausea/Vomiting Ondansetron HCl (Zofran Odt) 4 mg PO Q6H PRN PRN Reason: Nausea able to take PO Oxycodone HCl (Oxycodone) 5 - 10 mg PO Q4H PRN PRN Reason: Pain Last Admin: 10/26/19 12:58 Dose: 10 mg Documented by: Senna/Docusate Sodium (Senna Plus) 1 tab PO BID PRN PRN Reason: Constipation Discontinued Medications Hydromorphone HCl (Dilaudid) 0.5 mg IVPUSH ONETIME ONE Stop: 10/25/19 17:49 Last Admin: 10/25/19 17:55 Dose: 0.5 mg Documented by: Lactated Ringer's (Ringers, Lactated) 1,000 mls @ 1,000 mls/hr IV BOLUS ONE Stop: 10/25/19 17:55 Last Admin: 10/25/19 17:31 Dose: 1,000 mls/hr Documented by: Sodium Chloride (Normal Saline) 1,000 mls @ 125 mls/hr IV ASDIRECTED [facility] Last Admin: 10/25/19 20:22 Dose: 125 mls/hr Documented by: Sodium Chloride (Normal Saline) 500 mls @ 500 mls/hr IV ASDIRECTED [facility] Stop: 10/25/19 19:31 Last Admin: 10/25/19 19:11 Dose: 500 mls/hr Documented by: Metoclopramide HCl (Reglan) 10 mg IVPUSH ONETIME ONE Stop: 10/25/19 16:58 Last Admin: 10/25/19 17:31 Dose: 10 mg Documented by: Pantoprazole Sodium (Protonix Iv) 40 mg IVPUSH ONETIME ONE Stop: 10/25/19 20:01 Last Admin: 10/25/19 19:11 Dose: 40 mg Documented by: - Exam Quality Assessment: DVT Prophylaxis General: Alert, Oriented, Cooperative, No Acute Distress Lungs: Clear to Auscultation, Normal Respiratory Effort Cardiovascular: Regular Rate, Regular Rhythm, No Murmurs GI/Abdominal Exam: Soft, Non-Tender, No Organomegaly, No Distention Extremities: Non-Tender, No Pedal Edema Sepsis Event Note - Evaluation Sepsis Screening Result: No Definite Risk - Focused Exam Vital Signs: Vital Signs Temp Pulse Resp BP Pulse Ox 10/26/19 11:58 97.1 F 104 H 20 110/67 98 10/26/19 11:00 109 H 18 109/59 L 96 10/26/19 08:00 97.1 F 11 L 99/58 L 99 10/26/19 06:00 99 14 99/62 98 10/26/19 04:00 102 H 15 98/57 L 98 10/26/19 02:00 106 H 11 L 101/60 98 - Problem List Review Problem List Initiated/Reviewed/Updated: Yes - My Orders Last 24 Hours: My Active Orders 10/26/19 10:15 Insulin Glarg,Human.Rec.Analog [LantUS Solostar] 30 units SUBCUT DAILY 10/26/19 Lunch Consistent Carbohydrate Diet [DIET] 10/26/19 12:59 BASIC METABOLIC PANEL,BMP [CHEM] Stat MAGNESIUM [CHEM] Stat 10/27/19 05:00 BASIC METABOLIC PANEL,BMP [CHEM] Timed CBC WITH AUTO DIFF [HEME] Timed MAGNESIUM [CHEM] Timed - Plan Plan:: ASSESSMENT AND PLAN - Diabetic ketoacidosis without coma-proved from admission but not totally resolved -Low-dose insulin drip -Normal saline infusion -I anticipate she will need dextrose containing solution to keep her blood sugars in the normal range for her anion gap closes -BMP every 4 hours until her anion gap is normal -Restart long-acting insulin -Diabetes education High anion gap metabolic acidosis-improving with management of ketoacidosis -Management as above Recent abdominal abscesses-not currently on antibiotics. She is receiving daily wound care. Maintenance issues - - DVT prophylaxis -SCDs - GI prophylaxis -one-time dose of PPI tonight - Nutrition -clear liquids - Frausto catheter -not indicated CODE STATUS -full code Admission justification -this patient will be admitted for inpatient services and is medically appropriate meeting medical necessity for inpatient admission as outlined in my documentation. I reasonably expect the patient will require inpatient services that span a period time over 2 midnights. I reasonably expect this patient to be discharged or transferred within 96 hours [facility] Disposition -I would anticipate discharge home after the hospital stay Primary care physician -[facility] in [place]
[2019-10-26 17:38] VITALS: PULSE 96
[2019-10-26] MEDS ORDERED: 50% Dextrose in Water 50 ML Syringe IV PRN (18:00)
[2019-10-26] MEDS ORDERED: Glucose Gel 15 GM in 37.5 GM Tube PO PRN (18:00)
[2019-10-26] MEDS: Insulin Lispro 100 Unit/ML 3 ML KwikPen SUBCUT SCH (20:36)
[2019-10-26] MEDS ORDERED: Insulin Glargine,Human Rec. Analog 100 Units/ML 3 ML Pen SUBCUT SCH (21:00)
[2019-10-27] MEDS: oxyCODONE 5 MG Tab PO PRN ×2 (01:35→07:22)
[2019-10-27] MEDS: Insulin Lispro 100 Unit/ML 3 ML KwikPen SUBCUT SCH (08:40)
[2019-10-27] MEDS: Insulin Glargine,Human Rec. Analog 100 Units/ML 3 ML Pen SUBCUT SCH (08:42)
[2019-10-27] MEDS ORDERED: Magnesium Oxide 400 MG Tab PO SCH (09:00)
[2019-10-27] MEDS ORDERED: Potassium Chloride 20 MEQ Tab.ER PO ONE (09:15)
--- NOTE | 2019-10-27 09:52 | PCM.DCSUM1 ---
Discharge Summary - Hospital Course Brief History: Ms. Gómez is a 29-year-old woman with known type 1 diabetes mellitus. She was admitted through the emergency department with weakness, nausea, and abdominal pain, secondary to diabetic ketoacidosis. - Discharge Data Discharge Date: 10/27/19 Discharge Disposition: Home, Self-Care 01 Condition: Good - Referral to Home Health Primary Care Physician: PCP None - Discharge Diagnosis/Problem(s) (1) Diabetic ketoacidosis SNOMED Code(s): 198670788, 697044102 ICD Code: E13.10 - OTH DIABETES MELLITUS WITH KETOACIDOSIS WITHOUT COMA Status: Acute Current Visit: Yes Qualifiers: Diabetes mellitus type: type 1 Diabetes mellitus complication detail: without coma Qualified Code(s): E10.10 - Type 1 diabetes mellitus with ket oacidosis without coma (2) Methamphetamine abuse SNOMED Code(s): 356789150 ICD Code: F15.10 - OTHER STIMULANT ABUSE, UNCOMPLICATED Status: Chronic Current Visit: No (3) Type 1 diabetes mellitus SNOMED Code(s): 56022214 ICD Code: E10.9 - TYPE 1 DIABETES MELLITUS WITHOUT COMPLICATIONS Status: Chronic Current Visit: No - Patient Summary/Data Hospital Course: Ms. Gómez presented to the emergency room with abdominal pain, nausea and vomiting. Symptoms started yesterday and have progressed over that time. She describes her abdominal pain as achy generalized pain. Pain has been relatively constant but does get worse when she vomits. She did not take anything at home to make the pain better. Pain is slowly been getting worse. She has had multiple episodes of nausea with vomiting and has been unable to keep down any food and only small quantities of liquid. She reports that she ran out of her insulin a couple of days ago. She thought she had enough to get through until her appointment 2 days from now but came up several days short. Yesterday she had polyuria but they have admission her urine output seems to be less than usual. No complaints of shortness of breath or fever but she does report a mild cough. She does have several open abdominal wounds from abscess debridement and these are healing. She is getting daily wound care from home care. She is not currently on antibiotics. Work-up in the emergency room revealed evidence for diabetic ketoacidosis with a pH of 7.1 on venous blood gases. Blood sugar is nearly 400. Anion gap is 30 and her bicarb is only 8. She has received IV fluids and a dose of metoclopramide. She was going to be admitted for management of diabetic ketoacidosis. She received IV insulin bolus in the emergency department and was started on a continuous infusion of IV insulin per ketoacidosis protocol. She also received vigorous IV fluid replacement per protocol and management of electrolytes with electrolyte replacement as needed. Over the first 24 hours of hospitalization ketoacidosis resolved, she was transitioned back to her usual dose of long-acting insulin with sliding scale Humalog. She remained stable until the morning of discharge. Activity will be as tolerated and she will remain on a consistent carbohydrate diet. She has a f ollow-up appointment with her primary care provider later this afternoon and endocrinology tomorrow. - Patient Instructions Diet: Diabetic Diet Activity: As Tolerated Other/Special Instructions: Patient already has scheduled appointment with primary care provider later today and endocrinology tomorrow. - Discharge Plan *PRESCRIPTION DRUG MONITORING PROGRAM REVIEWED*: No *COPY OF PRESCRIPTION DRUG MONITORING REPORT IN PATIENT SRI: No Home Medications: Home Meds Insulin Aspart [Novolog Flexpen] 5 - 15 unit SQ TIDAC 03/13/14 [History] Insulin Detemir [Levemir] 30 unit SQ ACBREAKFAST 03/13/14 [History] Insulin Detemir [Levemir] 40 units SQ ACDINNER 10/25/19 [History] Referrals: Jake Hi DO [Ordering Only Provider] - - Discharge Summary/Plan Comment DC Time >30 min.: No - Patient Data Vitals - Most Recent: Last Vital Signs Temp 98 F 10/27/19 04:00 Pulse 96 10/26/19 17:38 Resp 12 10/27/19 05:52 BP 96/57 L 10/27/19 05:52 Pulse Ox 99 10/27/19 05:52 Weight - Most Recent: 178 lb 7.991 oz I&O - Last 24 hours: Intake & Output 10/26/19 10/27/19 10/27/19 22:59 06:59 14:59 Intake Total 720 Output Total 400 Balance 320 Lab Results - Last 24 hrs: Laboratory Results - last 24 hr 10/26/19 10/26/19 10/27/19 Range/Units 12:59 16:53 05:00 WBC 9.5 (4.5-11.0) K/uL RBC 4.29 (3.30-5.50) M/uL Hgb 11.1 L (12.0-15.0) g/dL Hct 35.7 L (36.0-48.0) % MCV 83 (80-98) fL MCH 26 L (27-31) pg MCHC 31 L (32-36) % Plt Count 311 (150-400) K/uL Neut % (Auto) 54 (36-66) % Lymph % (Auto) 35 (24-44) % [place] % (Auto) 11 H (2-6) % Eos % (Auto) 1 L (2-4) % Baso % (Auto) 0 (0-1) % Sodium 136 L 140 (140-148) mmol/L Potassium 3.9 4.0 (3.6-5.2) mmol/L Chloride 108 110 H (100-108) mmol/L Carbon Dioxide 19 L 23 (21-32) mmol/L Anion Gap 12.9 11.0 (5.0-14.0) mmol/L BUN 7 7 (7-18) mg/dL Creatinine 0.9 0.8 (0.6-1.0) mg/dL Est Cr Clr Drug Dosing 97.94 110.18 mL/min Estimated GFR (MDRD) > 60 > 60 (>60) Glucose 345 H 248 H (74-106) mg/dL Calcium 7.7 L 7.7 L (8.5-10.1) mg/dL Magnesium 1.6 L 1.7 L (1.8-2.4) mg/dL 10/27/19 Range/Units 05:00 WBC (4.5-11.0) K/uL RBC (3.30-5.50) M/uL Hgb (12.0-15.0) g/dL Hct (36.0-48.0) % MCV (80-98) fL MCH (27-31) pg MCHC (32-36) % Plt Count (150-400) K/uL Neut % (Auto) (36-66) % Lymph % (Auto) (24-44) % [place] % (Auto) (2-6) % Eos % (Auto) (2-4) % Baso % (Auto) (0-1) % Sodium 141 (140-148) mmol/L Potassium 3.4 L (3.6-5.2) mmol/L Chloride 109 H (100-108) mmol/L Carbon Dioxide 25 (21-32) mmol/L Anion Gap 10.4 (5.0-14.0) mmol/L BUN 4 L (7-18) mg/dL Creatinine 0.4 L (0.6-1.0) mg/dL Est Cr Clr Drug Dosing 220.37 mL/min Estimated GFR (MDRD) > 60 (>60) Glucose 72 L (74-106) mg/dL Calcium 7.9 L (8.5-10.1) mg/dL Magnesium 1.7 L (1.8-2.4) mg/dL Med Orders - Current: Current Medications Acetaminophen (Tylenol) 650 mg PO Q4H PRN PRN Reason: Pain (Mild 1-3)/fever Dextrose (Glutose 15) 15 gm PO ONETIME PRN PRN Reason: Hypoglycemia Dextrose/Water (Dextrose 50% In Water) 50 ml IV ONETIME PRN PRN Reason: Hypoglycemia Hydromorphone HCl (Dilaudid) 0.5 mg IVPUSH Q2H PRN PRN Reason: Pain (severe 7-10) Last Admin: 10/26/19 01:54 Dose: 0.5 mg Documented by: Insulin Glargine (Lantus Solostar) 30 units SUBCUT DAILY [facility] Last Admin: 10/27/19 08:42 Dose: 30 units Documented by: Insulin Glargine (Lantus Solostar) 40 units SUBCUT BEDTIME [facility] Insulin Human Lispro (Humalog) 0 unit SUBCUT QIDACANDBED [facility]; Protocol Last Admin: 10/27/19 08:40 Dose: 2 units Documented by: Lorazepam (Ativan) 0.5 mg IVPUSH Q4H PRN PRN Reason: Nausea/Vomiting Magnesium Hydroxide (Milk Of Magnesia) 30 ml PO Q12H PRN PRN Reason: Constipation Magnesium Oxide (Magnesium Oxide) 400 mg PO BID [facility] Melatonin (Melatonin) 9 mg PO BEDTIME PRN PRN Reason: Sleep Ondansetron HCl (Zofran) 4 mg IV Q6H PRN PRN Reason: Nausea/Vomiting Ondansetron HCl (Zofran Odt) 4 mg PO Q6H PRN PRN Reason: Nausea able to take PO Oxycodone HCl (Oxycodone) 5 - 10 mg PO Q4H PRN PRN Reason: Pain Last Admin: 10/27/19 07:22 Dose: 10 mg Documented by: Senna/Docusate Sodium (Senna Plus) 1 tab PO BID PRN PRN Reason: Constipation Discontinued Medications Hydromorphone HCl (Dilaudid) 0.5 mg IVPUSH ONETIME ONE Stop: 10/25/19 17:49 Last Admin: 10/25/19 17:55 Dose: 0.5 mg Documented by: Lactated Ringer's (Ringers, Lactated) 1,000 mls @ 1,000 mls/hr IV BOLUS ONE Stop: 10/25/19 17:55 Last Admin: 10/25/19 17:31 Dose: 1,000 mls/hr Documented by: Insulin Regular in 0.9 % NACL (Myxredlin 100 Unit/100 Ml) 100 mls @ 9.072 mls/hr IV ASDIRECTED [facility]; Protocol Last Infusion: 10/26/19 15:22 Dose: 0.03 units/kg/hr, 2.5 mls/hr Documented by: Sodium Chloride (Normal Saline) 1,000 mls @ 125 mls/hr IV ASDIRECTED [facility] Last Admin: 10/25/19 20:22 Dose: 125 mls/hr Documented by: Sodium Chloride (Normal Saline) 500 mls @ 500 mls/hr IV ASDIRECTED [facility] Stop: 10/25/19 19:31 Last Admin: 10/25/19 19:11 Dose: 500 mls/hr Documented by: Potassium Chloride/Dextrose/Sod Cl (D5 Ns With 20 Meq Kcl) 1,000 mls @ 125 mls/hr IV ASDIRECTED [facility] Last Admin: 10/26/19 14:19 Dose: 125 mls/hr Documented by: Insulin Glargine (Lantus Solostar) 40 units SUBCUT ACDINNER [facility] Insulin Glargine (Lantus Solostar) 40 units SUBCUT BEDTIME [facility] Last Admin: 10/26/19 20:35 Dose: 40 unit Documented by: Metoclopramide HCl (Reglan) 10 mg IVPUSH ONETIME ONE Stop: 10/25/19 16:58 Last Admin: 10/25/19 17:31 Dose: 10 mg Documented by: Pantoprazole Sodium (Protonix Iv) 40 mg IVPUSH ONETIME ONE Stop: 10/25/19 20:01 Last Admin: 10/25/19 19:11 Dose: 40 mg Documented by: Potassium Chloride (Klor-Con M20) 40 meq PO ONETIME ONE Stop: 10/27/19 09:16 - Exam General: Reports: Alert, Oriented, Cooperative, No Acute Distress Lungs: Reports: Clear to Auscultation, Normal Respiratory Effort Cardiovascular: Reports: Regular Rate, Regular Rhythm, No Murmurs GI/Abdominal Exam: Soft, Non-Tender, No Organomegaly, No Distention
[2019-10-27 10:38] VITALS: BP 96/54
[2019-10-27] MEDS ORDERED: Insulin Glargine,Human Rec. Analog 100 Units/ML 3 ML Pen SUBCUT SCH ×2 (16:00→21:00)
== END 2019-10-27 10:48 | disposition home or self-care (01) | DRG 639 ==
LOC: JP.ED 16:49 → JP.ICU 18:03
PROVIDERS: ADMIT Internal Medicine; ATTEND Internal Medicine
DX: E10.10 Type 1 diabetes mellitus with ketoacidosis without coma (principal); F15.10 Other stimulant abuse, uncomplicated; S31.109D Unspecified open wound of abdominal wall, unspecified quadrant without penetration into peritoneal cavity, subsequent encounter; Z88.6 Allergy status to analgesic agent; G89.29 Other chronic pain; M25.562 Pain in left knee; Z90.49 Acquired absence of other specified parts of digestive tract; F17.210 Nicotine dependence, cigarettes, uncomplicated
CPT/HCPCS: 36415; 80048; 80305-QW; 81001; 82800; 82962; 83735; 85025; 85027; 96361; 96374; 96375; 99221-AI; 99231; 99238; 99284; 99284-25; A9270-GY; C9113; J1170; J1815; J1815-GY; J2765; J3480; J7030; J7120

== ENCOUNTER 2020-02-20 07:56 | Emergency (ER) | payer MEDICAID ==
[2020-02-20] MEDS ORDERED: Sodium Chloride 0.9% 10 ML Syringe FLUSH PRN (08:17)
[2020-02-20] MEDS ORDERED: Sodium Chloride 0.9% 1,000 ML IV ONE ×3 (08:17→10:53)
[2020-02-20] MEDS ORDERED: 50% Dextrose in Water 50 ML Syringe IVPUSH PRN (08:18)
[2020-02-20] MEDS ORDERED: Insulin Lispro 100 Units/ML 3 ML Vial IV ONE (08:18)
[2020-02-20] MEDS ORDERED: Glucagon,Human Recombinant 1 MG Vial IM PRN (08:18)
--- NOTE | 2020-02-20 08:26 | EDM.PDOC ---
ED HPI GENERAL MEDICAL PROBLEM - General Chief Complaint: Diabetic Complaint Stated Complaint: BLOOD SUGAR LEVELS Time Seen by Provider: 02/20/20 08:11 Source of Information: Reports: Patient, EMS History Limitations: Reports: Physical Impairment - History of Present Illness INITIAL COMMENTS - FREE TEXT/NARRATIVE: Patient presents by ambulance from home because of several days being out of insulin and feeling nauseated, fatigued, generally ill. She ran out of insulin and went to the [facility] clinic at [place] earlier in the week. She apparently did not have an active order for insulin at that time in their facility and she was unable to get any. She gradually felt worse and worse over the ensuing days resulting in calling 911 today and presenting by ambulance. She has had other emergency department visits and admissions for uncontrolled diabetes in the past. She denies any other recent illness. Her worst feeling at the moment is generalized body aches and nausea. Onset: Gradual Duration: Day(s): (3) Location: Reports: Generalized Severity: Moderate Improves with: Reports: None Worsens with: Reports: None Generalized Pain Score (Numeric/FACES): 10 - Related Data Allergies Allergy/AdvReac Type Severity Reaction Status Date / Time ibuprofen Allergy Unknown Swelling Verified 02/20/20 08:15 Home Meds: Home Meds Insulin Aspart [Novolog Flexpen] 5 - 15 unit SQ TIDAC 03/13/14 [History] Insulin Detemir [Levemir] 50 unit SQ ACBREAKFAST 03/13/14 [History] Insulin Detemir [Levemir] 50 units SQ ACDINNER 10/25/19 [History] Past Medical History Gastrointestinal History: Reports: Cholelithiasis, Other (See Below) Other Gastrointestinal History: 90# weight loss in past year Musculoskeletal History: Reports: Other (See Below) Other Musculoskeletal History: chronic left knee pain Psychiatric History: Reports: Addiction Endocrine/Metabolic History: Reports: Diabetes, Type I, IDDM Hematologic History: Reports: Anemia Dermatologic History: Reports: Other (See Below) Other Dermatologic History: boils on buttock and abdomin - Infectious Disease History Infectious Disease History: Reports: Chicken Pox, MRSA Other Infectious Disease History: MRSA HX OF IN ABD. WOUND - Past Surgical History GI Surgical History: Reports: Cholecystectomy Endocrine Surgical History: Reports: None Musculoskeletal Surgical History: Reports: None Dermatological Surgical History: Reports: None Social & Family History - Family History Family Medical History: No Pertinent Family History - Caffeine Use Caffeine Use: Reports: None - Living Situation & Occupation Living situation: Reports: Single ED ROS GENERAL - Review of Systems Review Of Systems: See Below Constitutional: Reports: Malaise, Weakness. Denies: Fever, Chills HEENT: Reports: No Symptoms Respiratory: Reports: No Symptoms Cardiovascular: Reports: No Symptoms Endocrine: Reports: Fatigue, High Glucose GI/Abdominal: Reports: Nausea, Vomiting : Reports: No Symptoms Musculoskeletal: Reports: Muscle Pain Skin: Reports: No Symptoms ED EXAM GENERAL NO PERIP PULSE - Physical Exam Exam: See Below Text/Narrative:: This is a fatigued looking and sounding adult female evaluated in room 4. She has very poor vascular status and it is difficult to obtain IV access and lab specimens. Exam Limited By: No Limitations General Appearance: Lethargic, Mild Distress Respiratory/Chest: Normal Breath Sounds Cardiovascular: Tachycardia GI/Abdominal: Tender (Diffuse). No: Guarding Neurological: Slow to Respond Psychiatric: Flat Affect Course - Vital Signs Last Recorded V/S: Last Vital Signs Temp 35.8 C L 02/20/20 08:00 Pulse 124 H 02/20/20 10:32 Resp 16 02/20/20 10:32 BP 116/72 02/20/20 10:32 Pulse Ox 100 02/20/20 10:32 - Orders/Labs/Meds Orders: Active Orders 24 hr Category Date Time Status DRUG SCREEN, URINE [URCHEM] Stat Lab 02/20/20 08:19 Ordered URINALYSIS W/MICROSCOPIC [UA W/MICROSCOPIC] [URIN] Stat Lab 02/20/20 08:19 Ordered Dextrose 50% in Water Med 02/20/20 08:18 Active 50 ml IVPUSH ASDIRECTED PRN Glucagon,Human Recombinant [GlucaGen] Med 02/20/20 08:18 Active 1 mg IM ASDIRECTED PRN Sodium Chloride 0.9% [Normal Saline] 1,000 ml Med 02/20/20 10:53 Ordered IV .BOLUS Sodium Chloride 0.9% [Saline Flush] Med 02/20/20 08:17 Active 10 ml FLUSH ASDIRECTED PRN Saline Lock Insert [OM.PC] Routine Oth 02/20/20 08:17 Ordered Medication Orders Dextrose/Water (Dextrose 50% In Water) 50 ml IVPUSH ASDIRECTED PRN PRN Reason: Hypoglycemia Glucagon (Glucagen) 1 mg IM ASDIRECTED PRN PRN Reason: Hypoglycemia Sodium Chloride (Saline Flush) 10 ml FLUSH ASDIRECTED PRN PRN Reason: Keep Vein Open Last Admin: 02/20/20 08:33 Dose: 10 ml Documented by: KIMBERLY Labs: Laboratory Tests 02/20/20 02/20/20 02/20/20 Range/Units 08:45 08:45 08:45 WBC 17.2 H (4.5-11.0) K/uL RBC 5.96 H (3.30-5.50) M/uL Hgb 16.1 H D (12.0-15.0) g/dL Hct 51.5 H (36.0-48.0) % MCV 86 (80-98) fL MCH 27 (27-31) pg MCHC 31 L (32-36) % Plt Count 290 (150-400) K/uL Neut % (Auto) 88 H (36-66) % Lymph % (Auto) 9 L (24-44) % Harmon % (Auto) 3 (2-6) % Eos % (Auto) 0 L (2-4) % Baso % (Auto) 0 (0-1) % ABG Hemoglobin 16.3 H (12.0-16.0) g/dL ABG Oxyhemoglobin 93.6 % ABG Carboxyhemoglobin 2.2 H (0.0-1.6) % ABG Methemoglobin 1.7 % VBG pH 7.125 L (7.350-7.450) VBG pCO2 18.1 mm/Hg VBG pO2 134 mm/Hg VBG HCO3 5.7 mmol/L VBG Total CO2 5.3 mmol/L VBG O2 Saturation 97.4 VBG O2 Content 21.7 %vol VBG Base Excess -23.2 mm/L O2 Delivery Device Room air Sodium 134 L (140-148) mmol/L Potassium 4.5 (3.6-5.2) mmol/L Chloride 96 L (100-108) mmol/L Carbon Dioxide 6 L D (21-32) mmol/L Anion Gap 36.5 H (5.0-14.0) mmol/L BUN 24 H D (7-18) mg/dL Creatinine 1.2 H D (0.6-1.0) mg/dL Est Cr Clr Drug Dosing 70.99 mL/min Estimated GFR (MDRD) 52 L (>60) Glucose 461 H* (74-106) mg/dL Lactic Acid (0.4-2.0) mmol/L Calcium 8.7 (8.5-10.1) mg/dL Total Bilirubin 0.5 (0.2-1.0) mg/dL AST 20 (15-37) U/L ALT 25 D (12-78) U/L Alkaline Phosphatase 146 H (46-116) U/L C-Reactive Protein < 0.05 (0.0-0.3) mg/dL Total Protein 8.4 H (6.4-8.2) g/dL Albumin 4.0 (3.4-5.0) g/dL Globulin 4.4 H (2.3-3.5) g/dL Albumin/Globulin Ratio 0.9 L (1.2-2.2) Acetaminophen (10.0-30.0) ug/mL Ethyl Alcohol mg/dL SARS CoV-2 RNA Rapid FLORY 02/20/20 02/20/20 02/20/20 Range/Units 08:45 08:45 08:45 WBC (4.5-11.0) K/uL RBC (3.30-5.50) M/uL Hgb (12.0-15.0) g/dL Hct (36.0-48.0) % MCV (80-98) fL MCH (27-31) pg MCHC (32-36) % Plt Count (150-400) K/uL Neut % (Auto) (36-66) % Lymph % (Auto) (24-44) % Harmon % (Auto) (2-6) % Eos % (Auto) (2-4) % Baso % (Auto) (0-1) % ABG Hemoglobin (12.0-16.0) g/dL ABG Oxyhemoglobin % ABG Carboxyhemoglobin (0.0-1.6) % ABG Methemoglobin % VBG pH (7.350-7.450) VBG pCO2 mm/Hg VBG pO2 mm/Hg VBG HCO3 mmol/L VBG Total CO2 mmol/L VBG O2 Saturation VBG O2 Content %vol VBG Base Excess mm/L O2 Delivery Device Sodium (140-148) mmol/L Potassium (3.6-5.2) mmol/L Chloride (100-108) mmol/L Carbon Dioxide (21-32) mmol/L Anion Gap (5.0-14.0) mmol/L BUN (7-18) mg/dL Creatinine (0.6-1.0) mg/dL Est Cr Clr Drug Dosing mL/min Estimated GFR (MDRD) (>60) Glucose (74-106) mg/dL Lactic Acid 2.2 H (0.4-2.0) mmol/L Calcium (8.5-10.1) mg/dL Total Bilirubin (0.2-1.0) mg/dL AST (15-37) U/L ALT (12-78) U/L Alkaline Phosphatase (46-116) U/L C-Reactive Protein (0.0-0.3) mg/dL Total Protein (6.4-8.2) g/dL Albumin (3.4-5.0) g/dL Globulin (2.3-3.5) g/dL Albumin/Globulin Ratio (1.2-2.2) Acetaminophen 0.0 L (10.0-30.0) ug/mL Ethyl Alcohol < 3 mg/dL SARS CoV-2 RNA Rapid FLORY 02/20/20 02/20/20 Range/Units 10:06 10:17 WBC (4.5-11.0) K/uL RBC (3.30-5.50) M/uL Hgb (12.0-15.0) g/dL Hct (36.0-48.0) % MCV (80-98) fL MCH (27-31) pg MCHC (32-36) % Plt Count (150-400) K/uL Neut % (Auto) (36-66) % Lymph % (Auto) (24-44) % Harmon % (Auto) (2-6) % Eos % (Auto) (2-4) % Baso % (Auto) (0-1) % ABG Hemoglobin (12.0-16.0) g/dL ABG Oxyhemoglobin % ABG Carboxyhemoglobin (0.0-1.6) % ABG Methemoglobin % VBG pH (7.350-7.450) VBG pCO2 mm/Hg VBG pO2 mm/Hg VBG HCO3 mmol/L VBG Total CO2 mmol/L VBG O2 Saturation VBG O2 Content %vol VBG Base Excess mm/L O2 Delivery Device Sodium 139 L (140-148) mmol/L Potassium 3.9 (3.6-5.2) mmol/L Chloride 100 (100-108) mmol/L Carbon Dioxide 9 L (21-32) mmol/L Anion Gap 33.9 H (5.0-14.0) mmol/L BUN 24 H (7-18) mg/dL Creatinine 1.1 H (0.6-1.0) mg/dL Est Cr Clr Drug Dosing 77.44 mL/min Estimated GFR (MDRD) 58 L (>60) Glucose 359 H (74-106) mg/dL Lactic Acid (0.4-2.0) mmol/L Calcium 8.2 L (8.5-10.1) mg/dL Total Bilirubin (0.2-1.0) mg/dL AST (15-37) U/L ALT (12-78) U/L Alkaline Phosphatase (46-116) U/L C-Reactive Protein (0.0-0.3) mg/dL Total Protein (6.4-8.2) g/dL Albumin (3.4-5.0) g/dL Globulin (2.3-3.5) g/dL Albumin/Globulin Ratio (1.2-2.2) Acetaminophen (10.0-30.0) ug/mL Ethyl Alcohol mg/dL SARS CoV-2 RNA Rapid FLORY Negative Meds: Medications Generic Name Dose Route Start Last Admin Trade Name Freq PRN Reason Stop Dose Admin Dextrose/Water 50 ml 02/20/20 08:18 Dextrose 50% In Water IVPUSH ASDIRECTED PRN Hypoglycemia Glucagon 1 mg 02/20/20 08:18 Glucagen IM ASDIRECTED PRN Hypoglycemia Sodium Chloride 10 ml 02/20/20 08:17 02/20/20 08:33 Saline Flush FLUSH 10 ml ASDIRECTED PRN Administration Keep Vein Open Discontinued Medications Generic Name Dose Route Start Last Admin Trade Name Freq PRN Reason Stop Dose Admin Fentanyl 50 mcg 02/20/20 08:32 02/20/20 08:39 Sublimaze IVPUSH 02/20/20 08:33 50 mcg ONETIME ONE Administration Fentanyl 50 mcg 02/20/20 10:23 02/20/20 10:30 Sublimaze IVPUSH 02/20/20 10:24 50 mcg ONETIME ONE Administration Sodium Chloride 1,000 mls @ 999 mls/hr 02/20/20 08:17 02/20/20 08:35 Normal Saline IV 02/20/20 09:17 999 mls/hr .BOLUS ONE Administration Sodium Chloride 1,000 mls @ 999 mls/hr 02/20/20 09:41 02/20/20 09:46 Normal Saline IV 02/20/20 10:41 999 mls/hr .BOLUS ONE Administration Insulin Human Lispro 6 unit 02/20/20 08:18 02/20/20 08:40 Humalog IV 02/20/20 08:19 6 unit ONETIME ONE Administration Ondansetron HCl 4 mg 02/20/20 08:32 02/20/20 08:38 Zofran IVPUSH 02/20/20 08:33 4 mg ONETIME ONE Administration Ondansetron HCl 4 mg 02/20/20 10:23 02/20/20 10:30 Zofran IVPUSH 02/20/20 10:24 4 mg ONETIME ONE Administration - Re-Assessments/Exams Free Text/Narrative Re-Assessment/Exam: 02/20/20 08:26 Patient will be given normal saline by rapid infusion along with 6 units of Humalog IV. Zofran 4 mg and fentanyl 50 mcg, both as IV doses will also be given. She will need admission but the question would be whether it is here or whether she will need to be transferred to another facility? 02/20/20 08:38 02/20/20 10:07 This facility does not have ICU beds available and she will need an insulin drip for best titration of response to high glucose. She hopes that she does not have to be transferred to [place] because of logistics reasons at discharge. I contacted [facility] in [place] and spoke with Dr. Ankush trevizo, they are coordinating hospitalist. They have ICU beds available at this time, which is what she would need for an insulin drip. He accepts her in transfer. We will arrange ambulance transport and nurses will communicate between each facility. A second liter of normal saline is under rapid infusion at this time and her COVID-19 screening swab as well as a repeat BMP are pending at this time. 02/20/20 10:24 She is feeling somewhat better but still has some nausea and ongoing generalized pain. Zofran 4 mg and fentanyl 50 mcg, both IV doses, will be given again. She was told that she will be transferred to [place] ICU. She did not feel like she could urinate yet but I told her that it was important to get that before we transfer her. 02/20/20 10:40 Repeat BMP shows a decrease in glucose of 100 points. Potassium is 3.9. Bicarb has increased slightly to 9, all of these showing some metabolic improvement. 02/20/20 10:54 1/3 L of normal saline will be started but run in at 250 mL/h. No additional insulin will be given before transfer. Departure - Departure Time of Disposition: 10:11 Disposition: DC/Tfer to [facility] 02 Clinical Impression: High anion gap metabolic acidosis Nausea and vomiting Qualifiers: Vomiting type: unspecified Vomiting Intractability: non-intractable Qualified Code(s): R11.2 - Nausea with vomiting, unspecified Diabetic ketoacidosis Qualifiers: Diabetes mellitus type: type 1 Diabetes mellitus complication detail: without coma Qualified Code(s): E10.10 - Type 1 diabetes mellitus with ketoacidosis without coma - Discharge Information Referrals: PCP,None [Primary Care Provider] - Forms: ED Department Discharge Sepsis Event Note (ED) - Focused Exam Vital Signs: Vital Signs Temp Pulse Resp BP Pulse Ox 02/20/20 10:32 124 H 16 116/72 100 02/20/20 09:32 131 H 16 135/91 H 100 02/20/20 08:00 35.8 C L 134 H 18 132/88 99 - My Orders Last 24 Hours: My Active Orders 02/20/20 08:17 Sodium Chloride 0.9% [Saline Flush] 10 ml FLUSH ASDIRECTED PRN Saline Lock Insert [OM.PC] Routine 02/20/20 08:18 Dextrose 50% in Water 50 ml IVPUSH ASDIRECTED PRN Glucagon,Human Recombinant [GlucaGen] 1 mg IM ASDIRECTED PRN 02/20/20 08:19 DRUG SCREEN, URINE [URCHEM] Stat URINALYSIS W/MICROSCOPIC [UA W/MICROSCOPIC] [URIN] Stat 02/20/20 10:53 Sodium Chloride 0.9% [Normal Saline] 1,000 ml IV .BOLUS - Assessment/Plan Last 24 Hours: My Active Orders 02/20/20 08:17 Sodium Chloride 0.9% [Saline Flush] 10 ml FLUSH ASDIRECTED PRN Saline Lock Insert [OM.PC] Routine 02/20/20 08:18 Dextrose 50% in Water 50 ml IVPUSH ASDIRECTED PRN Glucagon,Human Recombinant [GlucaGen] 1 mg IM ASDIRECTED PRN 02/20/20 08:19 DRUG SCREEN, URINE [URCHEM] Stat URINALYSIS W/MICROSCOPIC [UA W/MICROSCOPIC] [URIN] Stat 02/20/20 10:53 Sodium Chloride 0.9% [Normal Saline] 1,000 ml IV .BOLUS
[2020-02-20] MEDS ORDERED: fentaNYL 100 MCG/2 ML SDV IVPUSH ONE ×2 (08:32→10:23)
[2020-02-20] MEDS ORDERED: Ondansetron 4 MG/2 ML SDV IVPUSH ONE ×3 (08:32→11:24)
[2020-02-20 11:07] VITALS: BP 126/75; PULSE 128
== END 2020-02-20 12:20 ==
LOC: JP.ED 07:56
DX: E10.10 Type 1 diabetes mellitus with ketoacidosis without coma (principal); Z88.6 Allergy status to analgesic agent; Z20.828 Contact with and (suspected) exposure to other viral communicable diseases
CPT/HCPCS: 36415; 80048; 80053; 80305; 80307; 81001; 82803; 83605; 85025; 86140; 87635; 96374; 96375; 96376; 99284; 99285; J1815; J2405; J3010; J7030; U0002